=== PATIENT | female | born 1940 | race Caucasian/White ===

== ENCOUNTER 2017-02-14 08:51 | Emergency (ER) | payer OTHER ==
[~2017-02-14] VITALS: Ht 165.1 cm; Wt 69.3 kg
[~2017-02-14 08:51] MED LIST: CALC-51 PO; LEVO75TA PO; MULT-506 PO; OMEGCAP2 PO; vit D PO
[2017-02-14 08:52] VITALS: TEMP 36.7; Ht 165.1 cm; Wt 69.3 kg
[2017-02-14] MEDS ORDERED: MoRPHine SULFATE 4 MG/ML 1 ML CARP\\VIAL IV STA (09:05)
[2017-02-14] MEDS ORDERED: LEVO100T PO (09:36)
[2017-02-14] MEDS ORDERED: MoRPHine SULFATE 4 MG/ML 1 ML CARP\\VIAL IV PRN (10:15)
--- NOTE | 2017-02-14 10:32 | EMERGENCY ROOM VISIT NOTE ---
ED Visit Note First contact with patient: 08:59 Patient was seen by our PA/OPTICAL ADVISOR. I was involved in the patient's care and did evaluate the patient myself. I was involved in the care throughout the ER stay. The patient presents after a fall. She complains of wrist pain. She does have a distal radius and ulna fracture per my review of her films. Orthopedics will be contacted.
--- NOTE | 2017-02-14 10:34 | DIAGNOSTIC IMAGING REPORT ---
LEFT WRIST MIN 3 VIEWS ROUTINE CLINICAL HISTORY: Left wrist pain trauma. Pain. COMPARISON: None. DISCUSSION: Dorsally displaced comminuted fracture distal radius. Fracture extends to the articular services with disruption of that structure. Small avulsion ulnar styloid. No evidence for dislocation. Considerable degenerative change first carpometacarpal joint with all remaining intraosseous services as well. Considerable localized soft tissue edema. IMPRESSION: 1. Comminuted somewhat impacted and dorsally angled fracture distal radius. 2. Minimal avulsion ulnar styloid. 3. Extensive degenerative change. The above report was generated using voice recognition software. It may contain grammatical, syntax or spelling errors. Electronically signed by: Jae Cote M.D. 02/14/2017 10:33 AM Dictated Date/Time: 02/14/2017 10:31 AM
[2017-02-14 11:03] VITALS: BP 148/76; PULSE 66; O2SAT 95
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
== END 2017-02-14 11:42 | disposition home or self-care (01) ==
LOC: C.EDB 08:52
DX: S52.532A Colles' fracture of left radius, initial encounter for closed fracture (principal); S52.615A Nondisplaced fracture of left ulna styloid process, initial encounter for closed fracture; W18.30XA Fall on same level, unspecified, initial encounter; Y92.488 Other paved roadways as the place of occurrence of the external cause; Y93.01 Activity, walking, marching and hiking; E03.9 Hypothyroidism, unspecified

== ENCOUNTER → 2017-04-27 | Outpatient (CLI) | payer OTHER ==
[~2017-04-27] MED LIST changes: +LEVO100T PO; -LEVO75TA PO; -vit D PO
== END | disposition home or self-care (01) ==
LOC: C.LAB 12:06
PROVIDERS: ATTEND Family Medicine
DX: E03.9 Hypothyroidism, unspecified (principal)

== ENCOUNTER → 2017-10-06 | Outpatient (CLI) | payer OTHER ==
[2017-10-06 17:22] LABS: BASO % 0.6 %; BASO ABS # 0.05 K/uL (0-0.2); EOS % 2.7 %; EOS ABS # 0.22 K/uL (0-0.5); HEMATOCRIT 41.2 % (37-47); HEMOGLOBIN 13.9 g/dL (12.0-16.0); IG# 0.01 K/uL (0.00-0.02); MEAN CELL VOLUME 90.9 fL (80-100); MEAN CORPUSCULAR HEMOGLOBIN 30.7 pg (25-34); MEAN CORPUSCULAR HGB CONC 33.7 g/dl (32-36); MEAN PLATELET VOLUME 10.1 fL (7.4-10.4); MONO % 10.3 %; MONO ABS # 0.85 K/uL (0.11-0.59); NEUT % 63.3 %; NEUT ABS # 5.24 K/uL (1.4-6.5); PLATELET COUNT 273 K/uL (130-400); RED CELL DISTRIBUTION WIDTH CV 12.8 % (11.5-14.5); RED CELL DISTRIBUTION WIDTH SD 42.4 fL (36.4-46.3); WHITE BLOOD COUNT 8.27 K/uL (4.8-10.8)
[2017-10-06 18:22] LABS: BLOOD UREA NITROGEN 14 mg/dl (7-18); CALCIUM 9.1 mg/dl (8.5-10.1); CARBON DIOXIDE 30 mmol/L (21-32); CREATININE 0.81 mg/dl (0.60-1.20); GLUCOSE 130 mg/dl (70-99); POTASSIUM 4.1 mmol/L (3.5-5.1); SODIUM 135 mmol/L (136-145)
== END | disposition home or self-care (01) ==
LOC: C.LABPVFM 16:02
PROVIDERS: ATTEND Nurse Practitioner
DX: E03.9 Hypothyroidism, unspecified (principal); R53.83 Other fatigue

== ENCOUNTER 2019-12-15 15:00 | Inpatient (IN) ==
[2019-12-15] MEDS ORDERED: ONDANSETRON INJ 2 MG/ML 2 ML VIAL IV STA (15:19)
[2019-12-15] MEDS ORDERED: HYDROmorphone INJ 0.5 MG/0.5 ML SYR IV PRN (15:19)
[2019-12-15] MEDS ORDERED: SODIUM CHLORIDE 0.9% 500 ML IV SCH (15:30)
[2019-12-15 15:52] LABS: Basophils # (auto) 0.01 K/uL (0-0.2); Basophils % (auto) 0.1 %; Eosinophils # (auto) 0.01 K/uL (0-0.5); Eosinophils % (auto) 0.1 %; Hematocrit (blood only) 44.2 % (37-47); Hemoglobin 15.1 g/dL (12.0-16.0); Immature Granulocytes # (auto) 0.04 K/uL (0.00-0.02); Immature Granulocytes % (auto) 0.3 %; Lymphocytes # (auto) 0.48 K/uL (1.2-3.4); Lymphocytes % (auto) 3.6 %; Mean Corpuscular Hemoglobin 30.6 pg (25-34); Mean Corpuscular Hgb Conc 34.2 g/dL (32-36); Mean Corpuscular Volume 89.5 fL (80-100); Mean Platelet Volume 10.2 fL (7.4-10.4); Monocytes # (auto) 0.83 K/uL (0.11-0.59); Monocytes % (auto) 6.1 %; Neutrophils # (auto) 12.13 K/uL (1.4-6.5); Neutrophils % (auto) 89.8 %; Platelet Count 195 K/uL (130-400); RDW Coefficient of Variation 12.6 % (11.5-14.5); RDW Standard Deviation 40.8 fL (36.4-46.3); Red Blood Count 4.94 M/uL (4.2-5.4)
[2019-12-15] MEDS ORDERED: ACETAMINOPHEN 1,000 MG/100 ML VIAL IV STA (15:52)
[2019-12-15 16:11] LABS: Albumin Level 3.5 gm/dl (3.4-5.0); BUN Creatinine Ratio 11.2 (10-20); Calcium 9.2 mg/dl (8.5-10.1); Creatinine Clr Calc Pharmacy 52.5 ml/min; Est GFR (African American) 74.5; Est GFR (Non-African American) 64.3; Potassium 4.1 mmol/L (3.5-5.1)
[2019-12-15 16:13] LABS: Albumin Globulin Ratio 0.8 (0.9-2); Bilirubin,Total 4.1 mg/dl (0.2-1); Globulin 4.5 gm/dl (2.5-4.0)
[2019-12-15] MEDS ORDERED: PIPERACILLIN/TAZOBACTAM 4.5 GM/120 ML BAG IV ONE (16:44)
[2019-12-15] MEDS ORDERED: PIPERACILL/TAZOBAC CONSULT ACTIVE PRN ×2 (16:44→19:07)
[2019-12-15] MEDS ORDERED: IOVERSOL 100ml IV PRN (17:36)
--- NOTE | 2019-12-15 17:45 | CT Scan Report ---
CT OF THE HEAD WITHOUT CONTRAST CLINICAL HISTORY: Syncope. Fever. COMPARISON STUDY: Head CT August 09, 2013. TECHNIQUE: Helical axial images of the head were obtained without IV contrast. Automated exposure con trol was utilized for the study. A dose lowering technique was utilized adhering to the principles o f ALARA. FINDINGS: No acute intracranial hemorrhage, midline shift or mass effect is present. The ventricular system is stable. Mild white matter hypodensity suggests small vessel disease. The basilar cisterns a re patent. No extra-axial collections are present. There are no findings to suggest acute dural sinus thrombosis or acute territorial infarct. No significant calvarial abnormalities are present. Visuali zed portions of the sinuses and mastoid air cells are clear. Incidental note is made of ossification along the anterior falx. There is minimal bilateral basal ganglia calcification. IMPRESSION: No acute intracranial findings. ACT 112: Negative or not required by law. Electronically signed by: Bishnu Cortez M.D. 12/15/2019 5:44 PM
--- NOTE | 2019-12-15 17:59 | CT Scan Report ---
CT OF THE ABDOMEN AND PELVIS WITH CONTRAST CLINICAL HISTORY: Right upper quadrant abdominal pain. Fever. COMPARISON STUDY: None. TECHNIQUE: Following IV administration of 92 mL of Optiray-320, axial images of the abdomen and pelvi s were obtained from the lung bases to the proximal femurs. Images were reviewed in the axial, sagitt al, and coronal planes. IV contrast was administered without complication. Automated exposure contro l was utilized for the study. A dose lowering technique was utilized adhering to the principles of A NATI. CT DOSE: 1101.69 mGy.cm FINDINGS: Lung bases are unremarkable. No pneumatosis, free air or portal venous gas is present. Ther e is moderate to marked intra and extrahepatic biliary ductal dilatation. The common bile duct measur es 1.6 cm in caliber. There is mild wall thickening of the biliary tree. Extensive intraluminal mater ial is noted within the intra and extrahepatic bile ducts. These suggest extensive calculi. There is minimal adjacent infiltration. The gallbladder is moderately distended. There is probable fatty infil tration of the liver. Major hepatic vessels are patent. There are no hepatic lesions. Pancreatic glan dular atrophy is noted without pancreatic ductal dilatation. There is no peripancreatic infiltration. A cyst within lower pole the right kidney contains a thin septation. Multiple subcentimeter bilatera l renal lesions are too small to characterize. The spleen and adrenal glands are normal. There is no evidence for a bowel obstruction. Colonic diverticulosis is noted without evidence for acute divertic ulitis. The appendix is normal. There are no suspicious osseous lesions. There is no ascites. IMPRESSION: 1. Moderate to marked intra and extrahepatic biliary ductal dilatation. Extensive intraluminal conten ts within the biliary tree suggest extensive calculi. Given the clinical history, the findings sugges t cholangitis and could reflect recurrent pyogenic cholangitis. GI consultation is recommended. 2. Moderate gallbladder distention. Superimposed acute cholecystitis cannot be excluded. ACT 112: Negative or not required by law. Electronically signed by: Bishnu Cortez M.D. 12/15/2019 5:58 PM
[2019-12-15] MEDS ORDERED: LACTATED RINGER'S 1,000 ML IV SCH ×4 (18:00→22:00)
--- NOTE | 2019-12-15 18:14 | Emergency Department Note ---
Impression & Plan Acute cholecystitis, Ascending cholangitis, Cholelithiasis, Elevated LFTs, Acute pancreatitis, Syncope, Nausea & vomiting, Leukocytosis ED Provider Note INFORMANT: [Patient] ED PROVIDER(S): Zachary Moody MD CHIEF COMPLAINT: Illness PLAN: Disposition: Admitted Condition: Guarded MEDICAL DECISION MAKING: Patient presented with feeling generally ill and having a syncopal episode. On physical examination she had right upper quadrant tenderness. A limited bedside ultrasound was performed by me and was concerning for significant cholelithiasis. The patient had blood work obtained. She was given Dilaudid, Zofran, and normal saline. She then had fever and was given IV Tylenol. The patient had a leukocytosis on CBC. LFTs and lipase were elevated concerning for an obstructive process. In light of the gallstones this was concerning and the patient underwent CT imaging. CT imaging was concerning for acute cholecystitis and ascending cholangitis. Consultation was made with gastroenterology, Dr. Reynaga. He is coming urgently to see the patient. Consultation was also placed with the [facility] hospitalist service. The case was discussed with Susy Kaufman PA-C. The patient will be admitted by the team for further management. Triage Nursing notes reviewed and agree them. Vital Signs: reviewed and remarkable for [no significant abnormalities] Differential diagnosis: Appendicitis, infections, diverticulitis, UTI, obstruction, mesenteric isch emia, aortic pathology, inflammatory bowel disease, renal colic, PUD, pancreatitis, biliary pathology, hernia, volvulus, constipation, as well as other pathologies. Diagnostics interpreted by me: ECG: Twelve-lead ECG reveals normal sinus rhythm at 76 bpm. There is left axis deviation and LVH present. No ST elevation or depression. No PACs or PVCs. Normal QRS. Cardiac Monitoring: Cardiac monitoring ordered by me: The patient was placed on continuous cardiac monitoring and observed. It revealed a normal sinus rhythm at 82 beats per minute without ectopy or evidence of dysrhythmia. Imaging studies: Head CT: A noncontrast CT scan of the head was performed and was negative for tumor, fracture, intracranial hemorrhage, or other acute pathology. CT scan of the abdomen pelvis is concerning for cholecystitis as well as cholangitis. Consultation(s): [facility] internal medicine hospitalist service HPI: The patient is a 79 year old female who presents to the Emergency Room with complaints of illness. This started yesterday with fatigue and then upper abdominal pain today. The patient felt nauseated. She vomited. She had a syncopal episode. She denies any injury from this. EMS was summoned and brought her to the hospital. The patient has found no relieving factors. Current pain is rated as 7/10. Pt denies headache, fevers, chills, diaphoresis, visual changes, neck pain, chest pain, breathing difficulties, back pain, melena, hematochezia, urinary symptoms, numbness, weakness, lymphadenopathy, rash, or other complaints. ROS: See above HPI for pertinent positives & negatives. A total of [10] systems reviewed and were otherwise negative. PAST MEDICAL HISTORY:[See Below] hypertension PAST SURGICAL HISTORY:[See Below] FAMILY HISTORY:[See Below] SOCIAL HISTORY:[See Below] no alcohol HOME MEDICATIONS:[See Below] ALLERGIES:[See Below] VITALS:[See Below] PHYSICAL EXAMINATION: GENERAL: Awake, alert, uncomfortable-appearing, in no distress HENT: Normocephalic, atraumatic. Oropharynx unremarkable. EYES: Normal conjunctiva. Sclera non-icteric. NECK: Inspection normal. Non-tender. Supple. No nuchal rigidity. FROM. No masses. RESPIRATORY: Clear to auscultation. No wheezes. No rales. Normal respiratory effort. CARDIAC: Normal rate. Normal rhythm. No murmurs. No rubs. Extremities warm and well perfused. Pulses equal. No JVD. GI: Soft, non-distended. Significant right upper quadrant tenderness to palpation. No rebound or guarding. No masses. RECTAL: Deferred. MUSCULOSKELETAL: Atraumatic. Chest examination reveals no tenderness. The back is symmetrical on inspection without obvious abnormality. There is no CVA tenderness to palpation. No joint edema. LOWER EXTREMITIES: Calves are equal size bilaterally and non-tender. No edema. No discoloration. NEURO: Normal sensorium. No sensory or motor deficits noted. SKIN: No rash or jaundice noted. ED COURSE: Limited Point of Care Abdominal Ultrasound performed by me: Indication: Right upper quadrant pain Findings: Limited abdominal ultrasonography of the RUQ revealed no fluid within Morrisons pouch. No hydronephrosis of the right kidney. Gallbladder imaging revealed significant cholelithiasis. Mild gallbladder distention.. Positive sonographic Falk sign. Impression: Cholelithiasis with concerns for acute cholecystitis. [Critical Care:] [None] Zachary Moody MD Past Med/Surg History Medical History (Updated 12/15/19 @ 18:08 by Zachary Moody MD) Acute coronary syndrome (Inactive) H/O therapeutic radiation Hypothyroidism (Chronic) Peripheral neuropathy (Chronic) Seasonal allergies (Acute) Surgical History (Updated 09/24/19 @ 11:36 by Kayla Cheney MD) H/O breast surgery Family History (Updated 09/24/19 @ 11:36 by Kayla Cheney MD) Other No pertinent family history Social History Feels Safe at Home: Yes Smoking Status: Never smoker Allergies Allergies Allergy/AdvReac Type Severity Reaction Status Date / Time No Known Allergies Allergy Unverified 12/15/19 16:24 Home Meds Previous Rx's Medication Instructions Recorded duloxetine 30 mg capsule,delayed 30 mg PO DAILY #30 cap 09/24/19 release levothyroxine 100 mcg tablet 100 mcg PO DAILY #90 tab 11/14/19 Results & Data (ED) Vital Signs Vital Signs - 24 hr 12/15/19 15:09 12/15/19 15:11 12/15/19 15:16 Temperature 37.3 C Temperature Source Oral Pulse Rate 80 77 82 Pulse Rate from SpO2 Sensor 81 78 Respiratory Rate 20 20 20 Respiratory Effort / Characteristics Non-Labored Spontaneous Respiratory Depth Normal Respiratory Pattern Regular Blood Pressure 190/91 H Blood Pressure Mean 130 Pulse Oximetry 94 94 95 Oxygen Delivery Method Room Air Sepsis Recent Fever Within 48 Hours No Sepsis New/Unexplained Change in Mental Status No Sepsis Action Taken by Nursing No Action Required 12/15/19 15:30 12/15/19 15:33 12/15/19 16:00 Temperature Temperature Source Pulse Rate 76 80 Pulse Rate from SpO2 Sensor 77 Respiratory Rate Respiratory Effort / Characteristics Respiratory Depth Respiratory Pattern Blood Pressure 167/80 H 165/77 H Blood Pressure Mean 105 100 Pulse Oximetry 92 Oxygen Delivery Method Sepsis Recent Fever Within 48 Hours Sepsis New/Unexplained Change in Mental Status Sepsis Action Taken by Nursing 12/15/19 16:01 12/15/19 16:04 12/15/19 16:30 Temperature Temperature Source Pulse Rate 83 87 Pulse Rate from SpO2 Sensor 79 87 Respiratory Rate 18 20 Respiratory Effort / Characteristics Respiratory Depth Respiratory Pattern Blood Pressure 154/75 H Blood Pressure Mean 103 Pulse Oximetry 92 94 96 Oxygen Delivery Method Room Air Sepsis Recent Fever Within 48 Hours Sepsis New/Unexplained Change in Mental Status Sepsis Action Taken by Nursing 12/15/19 16:31 12/15/19 16:40 12/15/19 17:01 Temperature 38.0 C H Temperature Source Oral Pulse Rate 86 110 H Pulse Rate from SpO2 Sensor 86 109 H Respiratory Rate Respiratory Effort / Characteristics Respiratory Depth Respiratory Pattern Blood Pressure 153/83 H Blood Pressure Mean 111 Pulse Oximetry 96 96 Oxygen Delivery Method Sepsis Recent Fever Within 48 Hours Sepsis New/Unexplained Change in Mental Status Sepsis Action Taken by Nursing 12/15/19 17:02 12/15/19 17:57 12/15/19 18:00 Temperature Temperature Source Pulse Rate 96 H 83 82 Pulse Rate from SpO2 Sensor 96 H 85 83 Respiratory Rate Respiratory Effort / Characteristics Respiratory Depth Respiratory Pattern Blood Pressure 139/75 138/71 Blood Pressure Mean 87 89 Pulse Oximetry 97 100 100 Oxygen Delivery Method Sepsis Recent Fever Within 48 Hours Sepsis New/Unexplained Change in Mental Status Sepsis Action Taken by Nursing 12/15/19 18:01 Temperature Temperature Source Pulse Rate 81 Pulse Rate from SpO2 Sensor 81 Respiratory Rate Respiratory Effort / Characteristics Respiratory Depth Respiratory Pattern Blood Pressure Blood Pressure Mean Pulse Oximetry 100 Oxygen Delivery Method Sepsis Recent Fever Within 48 Hours Sepsis New/Unexplained Change in Mental Status Sepsis Action Taken by Nursing Laboratory Data Result diagrams: 12/15/19 15:46 12/15/19 15:46 Lab Results 12/15/19 12/15/19 Range/Units 15:46 15:46 WBC 13.50 H (4.8-10.8) K/uL RBC 4.94 (4.2-5.4) M/uL Hgb 15.1 (12.0-16.0) g/dL Hct 44.2 (37-47) % MCV 89.5 (80-100) fL MCH 30.6 (25-34) pg MCHC 34.2 (32-36) g/dL RDW Std Deviation 40.8 (36.4-46.3) fL RDW Coeff of Leeanne 12.6 (11.5-14.5) % Plt Count 195 (130-400) K/uL MPV 10.2 (7.4-10.4) fL Immature Gran % (Auto) 0.3 % Neut % (Auto) 89.8 % Lymph % (Auto) 3.6 % [place] % (Auto) 6.1 % Eos % (Auto) 0.1 % Baso % (Auto) 0.1 % Neut # (Auto) 12.13 H (1.4-6.5) K/uL Lymph # (Auto) 0.48 L (1.2-3.4) K/uL [place] # (Auto) 0.83 H (0.11-0.59) K/uL Eos # (Auto) 0.01 (0-0.5) K/uL Baso # (Auto) 0.01 (0-0.2) K/uL Immature Gran # (Auto) 0.04 H (0.00-0.02) K/uL Sodium 132 L (136-145) mmol/L Potassium 4.1 (3.5-5.1) mmol/L Chloride 99 (98-107) mmol/L Carbon Dioxide 28 (21-32) mmol/L Anion Gap 6.0 (3-11) BUN 10 (7-18) mg/dl Creatinine 0.85 (0.6-1.2) mg/dl Est Cr Clr Drug Dosing 52.5 ml/min Est GFR ( Amer) 74.5 Est GFR (Non-Af Amer) 64.3 BUN/Creatinine Ratio 11.2 (10-20) Glucose 170 H (70-99) mg/dl Calcium 9.2 (8.5-10.1) mg/dl Total Bilirubin 4.1 H (0.2-1) mg/dl AST 512 H (15-37) U/L ALT 440 H (12-78) U/L Alkaline Phosphatase 188 H (45-117) U/L Total Protein 8.0 (6.4-8.2) gm/dl Albumin 3.5 (3.4-5.0) gm/dl Globulin 4.5 H (2.5-4.0) gm/dl Albumin/Globulin Ratio 0.8 L (0.9-2) Lipase 466 H (73-393) U/L Administered Medications Hydromorphone HCl (Dilaudid) 0.5 mg IV Q15M PRN PRN Reason: Pain Stop: 12/29/19 15:18 Last Admin: 12/15/19 16:03 Dose: 0.5 mg Documented by: [id number] Ioversol (Optiray 320 100ml) 92 ml IV ONCE PRN PRN Reason: Interaction Checking Stop: 12/19/19 17:35 Last Admin: 12/15/19 17:36 Dose: 92 ml Documented by: [id number] Discontinued Medications Sodium Chloride (Nss) 500 mls @ 999 mls/hr IV .Q31M JOSE ELIAS Stop: 12/15/19 16:00 Last Infusion: 12/15/19 16:37 Dose: 0 mls/hr Documented by: [id number] Admin: 12/15/19 16:01 Dose: 999 mls/hr Documented by: [id number] Acetaminophen (Ofirmev) 1,000 mg in 100 mls @ 400 mls/hr IV NOW STA Stop: 12/15/19 16:06 Last Infusion: 12/15/19 16:37 Dose: 0 mls/hr Documented by: [id number] Admin: 12/15/19 16:03 Dose: 400 mls/hr Documented by: [id number] Piperacillin Sod/Tazobactam Sod (Zosyn) 4.5 gm in 120 mls @ 240 mls/hr IV NOW ONE Stop: 12/15/19 17:13 Last Infusion: 12/15/19 17:40 Dose: 0 mls/hr Documented by: [id number] Admin: 12/15/19 17:06 Dose: 240 mls/hr Documented by: [id number] Ondansetron HCl (Zofran) 4 mg IV NOW STA Stop: 12/15/19 15:20 Last Admin: 12/15/19 16:01 Dose: 4 mg Documented by: [id number] Discharge Plan Visit Data Chief Complaint: Illness ED Provider: Zachary Moody Discharge Problem: Acute cholecystitis, Ascending cholangitis, Cholelithiasis, Elevated LFTs, Acute pancreatitis, Syncope, Nausea & vomiting, Leukocytosis Forms Stand Alone Forms: [employer] Prescriptions Prescriptions: No Action duloxetine 30 mg capsule,delayed release(DR/EC) 30 mg PO DAILY Qty: 30 RF: 1 levothyroxine [Synthroid] 100 mcg tablet 100 mcg PO DAILY Qty: 90 RF: 1
--- NOTE | 2019-12-15 18:14 | History & Physical Report ---
Date of Service December 15, 2019 Assessment & Plan (1) Acute cholecystitis: (2) Ascending cholangitis: - Admit to med surg with tele - Follow BCx x 2, was started on IV zosyn before obtaining cultures - CT of the abd reviewed as above - Keep NPO ok with meds, sips/chips - Cont LR at 250 ml/hr to aggressively hydrate - Consult GI, Dr. Reynaga, for ERCP - plan for tomorrow morning - Consult general surgery, Dr. Machuca - WBC elevated at 13.5, LFTs elevated, lipase elevated 466 possibly gallstone pancreatitis - Tmax =38 in the ER, continue tylenol - Analgesia with MS IV, tylenol - Glucose noted to be 170 on admission, nothing to eat since breakfast, will check am A1C, trend with am cmp. (3) Hypothyroidism: - Cont levothyroxine (4) DVT prophylaxis: - teds CODE: DNR Dispo: From home, likely to remain in the hospital for 2 days. History of Present Illness Primary Care Provider: Kayla Cheney MD This is a 79 yo F with PMhx of hypothyroidism and depression, who was in her normal state of health yesterday. Last night she went to bed early due to not feeling well. This morning she went out to her kitchen to try to fix breakfast for herself and states that she passed out due to pain, she was able to call EMS herself once coming to, initially she was unable to pinpoint where exactly her pain was but currently states pain is localized to the RUQ. She admits to nausea, but no vomiting, and then subsequently developed a fever later today. She reports her pain is very mild at this point as she has been given pain medication in the ER. She thought that it was Tuesday morning whenever I was in to see her, and seems to be unable to grasp that the whole day has passed. She is otherwise alert and oriented and participates in Q&A appropriately. Here in the ER the pt is found to have significant findings on CT scan for moderate to marked intra and extrahepatic biliary ductal dilatation. Extensive intraluminal contents within the biliary tree suggest extensive calculi. Given the clinical history, the findings suggest cholangitis and could reflect recurrent pyogenic cholangitis. Moderate gallbladder distention, concerning for acute cholecystitis. Pt has been started on IV zosyn. GI has been consulted for ERCP. Allergies Allergy/AdvReac Type Severity Reaction Status Date / Time No Known Allergies Allergy Unverified 12/15/19 16:24 Home Medications Home Medications Medication Instructions Recorded Confirmed Type duloxetine 30 mg capsule,delayed 30 mg PO DAILY #30 cap 09/24/19 12/15/19 Rx release levothyroxine 100 mcg tablet 100 mcg PO DAILY #90 tab 11/14/19 12/15/19 Rx Past Med/Surg History Medical History Acute coronary syndrome (Inactive) H/O therapeutic radiation Hypothyroidism (Chronic) Peripheral neuropathy (Chronic) Seasonal allergies (Acute) Surgical History H/O breast surgery Family History Other No pertinent family history Social History Preferred Language: Italian Communication Ability: Effective 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 Current Living Situation: Alone Other Information That Helps Us Care for You: No Feels Safe at Home: Yes Safety Concerns: Feels Safe At This Time Smoking Status: Never smoker Hx Alcohol Use: No Hx Substance Use: No Review of Systems Review of Systems: Constitutional: + Fever, no sweats or chills Eyes: No diplopia, no worsening or blurred vision ENT: normal hearing, no trouble swallowing Respiratory: No cough, sputum, dyspnea at rest or on exertion Cardiovascular: No chest pain, tightness or palpitations Abdomen: See HPI, + pain, + nausea, no vomiting, diarrhea or constipation Musculoskeletal: No joint pain, calf pain, swelling Neurologic: No weakness, numbness/tingling, or balance problems Psychiatric: No anxiety or depression Skin: No rash or itch Physical Exam Physical Exam: General: awake, alert, no apparent distress, + appears younger than stated age Head: Normocephalic, atraumatic ENT: PERRL, EOMI, no pharyngeal exudate, mucous membranes moist Chest: Clear to auscultation, on room air, no adventitious breath sounds Cardiac: Regular rate and rhythm, no murmur, no JVD, normal peripheral pulses, good capillary refill Abdominal: NABS x 4 quadrants, soft, + tenderness in RUQ with deep palpation, otherwise nontender to palpation, no rebound, guarding, negative Falk sign with pain medication Extremities: Normal inspection, no peripheral edema or erythema, calfs nontender to palpation Psych: Normal mood and affect Neuro: AAO x 3, strength intact bilaterally and rated 5/5, no motor deficits, speech is clear, no peripheral sensory deficits Skin: no rash or erythema Results & Data Results & [facility] ([facility] Vital Signs (Past 12 Hours) Vital Signs Temp Pulse Resp BP Pulse Ox 12/15/19 18:01 81 100 12/15/19 18:00 82 138/71 100 12/15/19 17:57 83 139/75 100 12/15/19 17:02 96 H 97 12/15/19 17:01 110 H 153/83 H 96 12/15/19 16:40 38.0 C H 12/15/19 16:31 86 96 12/15/19 16:30 87 154/75 H 96 12/15/19 16:04 83 20 94 12/15/19 16:01 18 92 12/15/19 16:00 80 165/77 H 92 12/15/19 15:33 76 12/15/19 15:30 167/80 H 12/15/19 15:16 37.3 C 82 20 95 12/15/19 15:11 77 20 94 12/15/19 15:09 80 20 190/[address] OF THE HEAD WITHOUT CONTRAST CLINICAL HISTORY: Syncope. Fever. COMPARISON STUDY: Head CT August 09, 2013. TECHNIQUE: Helical axial images of the head were obtained without IV contrast. Automated exposure control was utilized for the study. A dose lowering technique was utilized adhering to the principles of ALARA. FINDINGS: No acute intracranial hemorrhage, midline shift or mass effect is present. The ventricular system is stable. Mild white matter hypodensity suggests small vessel disease. The basilar cisterns are patent. No extra-axial collections are present. There are no findings to suggest acute dural sinus thrombosis or acute territorial infarct. No significant calvarial abnormalities are present. Visualized portions of the sinuses and mastoid air cells are clear. Incidental note is made of ossification along the anterior falx. There is minimal bilateral basal ganglia calcification. IMPRESSION: No acute intracranial findings. CT OF THE ABDOMEN AND PELVIS WITH CONTRAST CLINICAL HISTORY: Right upper quadrant abdominal pain. Fever. COMPARISON STUDY: None. TECHNIQUE: Following IV administration of 92 mL of Optiray-320, axial images of the abdomen and pelvis were obtained from the lung bases to the proximal femurs. Images were reviewed in the axial, sagittal, and coronal planes. IV contrast was administered without complication. Automated exposure control was utilized for the study. A dose lowering technique was utilized adhering to the principles of ALARA. CT DOSE: 1101.69 mGy.cm FINDINGS: Lung bases are unremarkable. No pneumatosis, free air or portal venous gas is present. There is moderate to marked intra and extrahepatic biliary ductal dilatation. The common bile duct measures 1.6 cm in caliber. There is mild wall thickening of the biliary tree. Extensive intraluminal material is noted within the intra and extrahepatic bile ducts. These suggest extensive calculi. There is minimal adjacent infiltration. The gallbladder is moderately distended. There is probable fatty infiltration of the liver. Major hepatic vessels are patent. There are no hepatic lesions. Pancreatic glandular atrophy is noted without pancreatic ductal dilatation. There is no peripancreatic infiltration. A cyst within lower pole the right kidney contains a thin septation. Multiple subcentimeter bilateral renal lesions are too small to characterize. The spleen and adrenal glands are normal. There is no evidence for a bowel obstruction. Colonic diverticulosis is noted without evidence for acute diverticulitis. The appendix is normal. There are no suspicious osseous lesions. There is no ascites. IMPRESSION: 1. Moderate to marked intra and extrahepatic biliary ductal dilatation. Extensive intraluminal contents within the biliary tree suggest extensive calculi. Given the clinical history, the findings suggest cholangitis and could reflect recurrent pyogenic cholangitis. GI consultation is recommended. 2. Moderate gallbladder distention. Superimposed acute cholecystitis cannot be excluded. Code Status & VTE Plan Code Status DNR-discussed with the patient at bedside Supervising Physician Co-Signing Physician Notes I supervised Susy Kaufman PA-C on this admission. I interviewed and examined the patient independently of her. The plan is as written in the note except for any following changes/exceptions: None Plan for ERCP tomorrow with Dr. Reynaga. Presently not in significant pain. Surgery will be consulted for consideration of an inpatient lap alexander as well. PG Care Time/CCT Total # of Minutes Spent Total Time Spent with Patient: Total time spent is greater than 50% in coordination of care (as documented) at patient's floor/unit and/or counseling patient: Coding Level of Care Code 40536 Initial Inpt Care Lvl 3 Diagnoses Acute cholecystitis K81.0 Ascending cholangitis K83.09 Hypothyroidism E03.9 DVT prophylaxis Z29.9
--- NOTE | 2019-12-15 18:31 | Gastrointestinal Consultation ---
Date of Consultation December 15, 2019 Assessment & Plan (1) Ascending cholangitis: appears to have gallstone pancreatitis with cholangitis, epigastric tenderness on exam. she is very high probability per ASGE criteria for having choledocholithiasis, and thus requires an ERCP. Recs: 1. NPO 2. IV abx zosyn 3. obtain blood cultures 4. ERCP tomorrow morning 5.aggressive IV hydration with LR 250 cc/hr over the first 24 hours 6.surgery consult for [facility] this admission Thank you for allowing me to participate in the care of this patient (2) Cholelithiasis: (3) Elevated LFTs: (4) Acute pancreatitis: History of Present Illness History of Present Illness 79 yo female here with abdominal pain. GI consulted for possible cholangitis. She has been having epigastric intense abdominal pains 10/10 since yesterday evening. vitals show she is febrile to 38.0, labs show tbili 4.1 and elevated lipase, with imaging showing several gallstones and dilated bile ducts. Denies n/v, urinary sx's, change in bowel habits. labs reviewed. Allergies Allergy/AdvReac Type Severity Reaction Status Date / Time No Known Allergies Allergy Unverified 12/15/19 16:24 Home Medications Home Medications Medication Instructions Recorded Confirmed Type duloxetine 30 mg capsule,delayed 30 mg PO DAILY #30 cap 09/24/19 12/15/19 Rx release levothyroxine 100 mcg tablet 100 mcg PO DAILY #90 tab 11/14/19 12/15/19 Rx Patient History Medical History Acute coronary syndrome (Inactive) H/O therapeutic radiation Hypothyroidism (Chronic) Peripheral neuropathy (Chronic) Seasonal allergies (Acute) Surgical History H/O breast surgery Family History Other No pertinent family history Social History Feels Safe at Home: Yes Smoking Status: Never smoker Review of Systems Constitutional: no fever, no chills and no weight loss Eyes: as per Subjective / HPI Ear, Nose, Mouth, Throat: as per Subjective / HPI Respiratory: no dyspnea and no dyspnea on exertion Cardiovascular: no chest pain and no palpitations Gastrointestinal: as per Subjective / HPI Musculoskeletal: no joint pain and no swelling Integumentary: no rash and no lesions Neurologic: no numbness and no paresthesia Psychiatric: no depression and no anxiety Endocrine: no fatigue Hematologic / Lymphatic: no easy bleeding and no easy bruising Physical Exam Constitutional: WD/WN, vitals as above Eyes: EOM intact bilaterally Neck: normal visual inspection Respiratory: normal respiratory effort, lungs clear to auscultation Cardiovascular: RRR, no murmur, no edema Gastrointestinal (Abdomen): Inspection/Auscultation: abdomen normal to inspection; abdomen not distended Percussion/Palpation: + abdomen tender (moderate epigastric) and abdomen soft; no hepatosplenomegaly Musculoskeletal: Extremities: no cyanosis Gait: normal gait Skin: no rashes, warm and dry Neurologic: moves all extremities Psychiatric: A+Ox3, euthymic affect Results & Data ([facility]) Vital Signs (Past 12 Hours) Vital Signs Temp Pulse Resp BP Pulse Ox 12/15/19 18:01 81 100 12/15/19 18:00 82 138/71 100 12/15/19 17:57 83 139/75 100 12/15/19 17:02 96 H 97 12/15/19 17:01 110 H 153/83 H 96 12/15/19 16:40 38.0 C H 12/15/19 16:31 86 96 12/15/19 16:30 87 154/75 H 96 12/15/19 16:04 83 20 94 12/15/19 16:01 18 92 12/15/19 16:00 80 165/77 H 92 12/15/19 15:33 76 12/15/19 15:30 167/80 H 12/15/19 15:16 37.3 C 82 20 95 12/15/19 15:11 77 20 94 12/15/19 15:09 80 20 190/91 H 94 PG Care Time/CCT Total # of Minutes Spent Total Time Spent with Patient: Total time spent is greater than 50% in coordination of care (as documented) at patient's floor/unit and/or counseling patient: Coding Level of Care Code 74665 Initial Inpt Care Lvl 3 Diagnoses Ascending cholangitis K83.09 Cholelithiasis K80.20 Elevated LFTs R79.89 Acute pancreatitis K85.90
[2019-12-15] MEDS ORDERED: ONDANSETRON INJ 2 MG/ML 2 ML VIAL IV PRN (19:07)
[2019-12-15] MEDS ORDERED: MoRPHine SULFATE 2 MG/ML CARP IV PRN (19:07)
[2019-12-15] MEDS ORDERED: MoRPHine SULFATE 4 MG/ML 1 ML CARP\\VIAL IV PRN (19:07)
[2019-12-15] MEDS: PIPERACILLIN/TAZOBACTAM 3.375 GM in DEXTROSE 5% 100 ML IV SCH (21:05)
[2019-12-15] MEDS: ACETAMINOPHEN 325 MG TAB PO PRN (21:08)
[2019-12-15] MEDS: LACTATED RINGER'S 1,000 ML IV SCH (22:53)
[2019-12-16] MEDS: LACTATED RINGER'S 1,000 ML IV SCH ×5 (03:07→19:07)
[2019-12-16 03:21] LABS: Appearance Urine Clear (Clear); Bacteria Urine Automated Negative (Negative); Bilirubin Urine Negative (Negative); Blood Urine Trace (Negative); Cast Urine Automated 0 /lpf (0-5); Color Urine Dark Yellow; Glucose Urine UA Negative (Negative); Ketones Urine Negative (Negative); Leukocyte Esterase Urine Negative (Negative); Nitrite Urine Negative (Negative); Protein Urine Negative (Negative); RBC Urine Automated 0-4 /hpf (0-4); Specific Gravity Urine 1.023 (1.000-1.030); Urobilinogen Urine Negative (Negative); WBC Urine Automated 0 /hpf (0-5)
[2019-12-16] MEDS: PIPERACILLIN/TAZOBACTAM 3.375 GM in DEXTROSE 5% 100 ML IV SCH ×3 (04:27→20:29)
--- NOTE | 2019-12-16 06:23 | Anesthesiology Consultation ---
Date of Service December 16, 2019 Assessment & Plan (1) Encounter for pre-operative examination: ASA ASA3 Proposed Anesthesia Anesthesia Type: General History Surgery Operation Date: 12/16/19 07:30 Proposed Procedures p Endoscopic Retrograde Cholangiopancreato - Mae Thakur MD Height/Weight Height: 5 ft 6 in Weight: 70.8 kg Allergies Allergy/AdvReac Type Severity Reaction Status Date / Time No Known Allergies Allergy Unverified 12/15/19 16:24 Medications Home Medications Medication Instructions Recorded Confirmed Last Taken duloxetine 30 mg capsule,delayed 30 mg PO DAILY #30 cap 09/24/19 12/15/19 Unknown release levothyroxine 100 mcg tablet 100 mcg PO DAILY #90 tab 11/14/19 12/15/19 Unknown Active Medications Generic Name Dose Route Start Last Admin Trade Name Freq PRN Reason Stop Dose Admin Acetaminophen 650 mg 12/15/19 19:07 12/15/19 21:08 Tylenol PO 01/14/20 19:06 650 mg Q4H PRN Administration Moderate Pain Piperacillin Sod/Tazobactam 115 mls @ 28.75 mls/hr 12/15/19 21:00 12/16/19 04:27 Sod 3.375 gm/ Dextrose IV 12/25/19 20:59 28.8 mls/hr Q8H JOSE ELIAS Administration Protocol Lactated Ringer's 1,000 mls @ 250 mls/hr 12/15/19 23:30 12/16/19 03:07 Lr IV 01/14/20 23:29 250 mls/hr .Q4H JOSE ELIAS Administration Levothyroxine Sodium 100 mcg 12/16/19 06:30 12/16/19 06:26 Synthroid PO 01/15/20 06:29 100 mcg DAILYBB JOSE ELIAS Administration Past Medical History Medical History Acute coronary syndrome (Inactive) H/O therapeutic radiation Hypothyroidism (Chronic) Peripheral neuropathy (Chronic) Seasonal allergies (Acute) Past Family History Family History Other No pertinent family history Past Surgical History Surgical History H/O breast surgery Social History Smoking Status: Never smoker Hx Alcohol Use: No Hx Substance Use: No Physical Exam Vital Signs Last Vital Signs Temp 36.8 C 12/16/19 04:34 Pulse 72 12/16/19 04:34 Resp 20 12/16/19 04:34 BP 154/81 H 12/16/19 04:34 Pulse Ox 95 12/16/19 04:34 Testing Laboratory Results 12/15/19 15:46 12/15/19 15:46 Urine Color Dark Yellow 12/16/19 02:30 Urine Appearance Clear (Clear) 12/16/19 02:30 Urine pH 7.0 (4.5-7.5) 12/16/19 02:30 Ur Specific [place] 1.023 (1.000-1.030) 12/16/19 02:30 Urine Protein Negative (Negative) 12/16/19 02:30 Urine Glucose (UA) Negative (Negative) 12/16/19 02:30 Urine Ketones Negative (Negative) 12/16/19 02:30 Urine Nitrite Negative (Negative) 12/16/19 02:30 Ur Leukocyte Esterase Negative (Negative) 12/16/19 02:30 Urine WBC (Auto) 0 /hpf (0-5) 12/16/19 02:30 Urine RBC (Auto) 0-4 /hpf (0-4) 12/16/19 02:30 U Hyaline Cast (Auto) 0 /lpf (0-5) 12/16/19 02:30 U Epithel Cells (Auto) 5-10 /lpf (0-5) H 12/16/19 02:30 Urine Bacteria (Auto) Negative (Negative) 12/16/19 02:30 Electrocardiogram Date: 12/15/19 Findings: + NSR @
[2019-12-16] MEDS: LEVOTHYROXINE SODIUM 100 MCG TABLET PO SCH (06:26)
[2019-12-16] MEDS ORDERED: PROPOFOL IV EMULSION 10 MG/ML 20 ML VIAL IV ONE (06:51)
[2019-12-16] MEDS ORDERED: SUCCINYLCHOLINE 100MG/5ML SYR IV ONE (06:51)
[2019-12-16] MEDS ORDERED: LIDOCAINE HCL 2% 2 ML VIAL/AMP(20MG/ML) INFIL ONE (06:51)
[2019-12-16] MEDS ORDERED: fentaNYL citrate 100 MCG/2 ML VIAL ONE ×2 (06:51→08:41)
[2019-12-16] MEDS ORDERED: ONDANSETRON INJ 2 MG/ML 2 ML VIAL ONE (06:54)
[2019-12-16] MEDS ORDERED: IOVERSOL 50ml IV ONE (07:03)
[2019-12-16] MEDS ORDERED: INDOMETHACIN 50 MG SUPP PR ONE (07:14)
--- NOTE | 2019-12-16 07:23 | History & Physical Bridge Note ---
Date of Service December 16, 2019 History & Physical Bridge Note I have examined the patient, reviewed the History & Physical and in the interval since the performance of the History & Physical I have noted the following changes of clinical significance: no changes noted Urgent ERCP today
[2019-12-16] MEDS ORDERED: ONDANSETRON INJ 2 MG/ML 2 ML VIAL IV PRN (07:42)
[2019-12-16] MEDS ORDERED: HYDROmorphone INJ 1 MG/ML SYRINGE IV PRN (07:42)
[2019-12-16] MEDS ORDERED: ATROPINE SULFATE 0.1 MG/ML 10ML SYR IV PRN (07:42)
[2019-12-16] MEDS ORDERED: fentaNYL citrate 100 MCG/2 ML VIAL IV PRN (07:42)
[2019-12-16] MEDS ORDERED: ePHEDrine sulfate 50 MG/ML AMP IV PRN (07:42)
[2019-12-16] MEDS ORDERED: DEXAMETHASONE SOD INJ 4 MG/ML VIAL ONE (07:54)
--- NOTE | 2019-12-16 08:13 | Electrocardiogram Report ---
Test Reason : Blood Pressure : / mmHG Vent. Rate : 076 BPM Atrial Rate : 076 BPM P-R Int : 176 ms QRS Dur : 074 ms QT Int : 390 ms P-R-T Axes : 066 -41 054 degrees QTc Int : 438 ms Poor data quality, interpretation may be adversely affected Normal sinus rhythm Left axis deviation Moderate voltage criteria for LVH, may be normal variant Abnormal ECG When compared with ECG of 09-AUG-2013 08:35, No significant change was found Confirmed by Diego Cutler ([id number]) on 12/16/2019 8:13:19 AM Referred By: Confirmed By:Diego Cutler
--- NOTE | 2019-12-16 09:08 | Operative Report ---
Post Operative Report Pre & Post Diagnosis Operation Date: 12/16/19 07:30 Pre-Op Diagnosis: ACUTE CHOLECYSTITIS, PYOGENIC CHOLANITIS Post-Op Diagnosis: ACUTE CHOLECYSTITIS, PYOGENIC CHOLANITIS I identified the patient and participated in the time-out.: Yes Procedure Operation Date: 12/16/19 07:30 Actual Procedures p Endoscopic Retrograde Cholangiopancreatography(Not Applicable) - Mae Thakur MD Surgeon Mae Thakur MD Campus President None Estimated Blood Loss 0 Findings See Below (Many large CBD stones removed, Pus drained, Stents placed) Specimens None Description of Procedure ERCP I attest to the content of the Intraoperative Record and any orders documented therein. Any exceptions are noted below.
--- NOTE | 2019-12-16 09:39 | GI REPORT ---
Patient Name: Olena Sweeney Procedure Date: 12/16/2019 7:16 AM Date of : 1940 Admit Type: Inpatient Age: 79 Gender: Female Attending MD: Mae Thakur MD Procedure: ERCP Providers: Mae Thakur MD Referring MD: Darian Vazquez Md, Sebastián Pederson, Ramon Walker M.d., Marquise Reynaga MD Indications: Bile duct stone on Computed Tomogram Scan, For therapy of ascending cholangitis, Elevated liver enzymes Medicines: General Anesthesia Complications: No immediate complications. Estimated Blood Loss: Estimated blood loss: none. Procedure: Pre-Anesthesia Assessment: - Prior to the procedure, a History and Physical was performed, and patient medications, allergies and sensitivities were reviewed. The patient's tolerance of previous anesthesia was reviewed. - The risks and benefits of the procedure and the sedation options and risks were discussed with the patient. All questions were answered and informed consent was obtained. - Patient identification and proposed procedure were verified prior to the procedure by the physician and the nurse. The procedure was verified in the procedure room. - Pre-procedure physical examination revealed no contraindications to sedation. After obtaining informed consent, the scope was passed under direct vision. Throughout the procedure, the patient's blood pressure, pulse, and oxygen saturations were monitored continuously. The Scope was introduced through the mouth, and advanced to the duodenum and used to inject contrast into the bile duct. The ERCP was accomplished without difficulty. The patient tolerated the procedure well. Findings: The harp repairer film was normal. The esophagus was successfully intubated under direct vision. The scope was advanced to a normal major papilla in the descending duodenum without detailed examination of the pharynx, larynx and associated structures, and upper GI tract. The upper GI tract was grossly normal. Pus was emerging from the major papilla. The major papilla was small. The ventral pancreatic duct was inadvertently cannulated with the short-nosed traction sphincterotome and guidewire. The guidewire was kept in place to assist in biliary ductal cannulation. A 0.035 inch straight Acrobat wire was passed into the biliary tree. The Fusion OMNI sphincterotome was passed over the guidewire and the bile duct was then deeply cannulated. Contrast was injected. I personally interpreted the bile duct images. Ductal flow of contrast was adequate. Image quality was adequate. Contrast extended to the main bile duct. The main bile duct was dilated. The largest diameter was 14 mm proximally and 8 mm distally. The entire main bile duct, cystic duct and right main hepatic duct contained multiple stones. The biliary orifice was stenotic. This appeared benign. Short biliary sphincterotomy was made with a monofilament traction (standard) sphincterotome using ERBE electrocautery. There was no post-sphincterotomy bleeding. Bile duct orifice was successfully dilated with a 10 mm balloon dilator. The biliary tree was swept with a 15 mm balloon starting at the bifurcation. Pus was swept from the duct. Many (around 20 stones) large stones were removed. A few larger stones remained. In view of ongoing cholangitis, decision made to place a stent for drainage and defer complete removal of the stones for the repeat ERCP few weeks later. One 5 Fr by 9 cm plastic pancreatic stent with a single external pigtail and no internal flaps was placed into the ventral pancreatic duct. Clear fluid flowed through the stent. The stent was in good position. One 10 Fr by 7 cm plastic biliary stent with a single external pigtail and a single internal pigtail was placed into the common bile duct. Bile flowed through the stent. The proximal end was anchored deep in the left hepatic duct. This will allow bile drainage around the stent and prevent occlusion of the duct by stone impaction. The stent was in good position. Indomethacin 100 mg was given via suppository to decrease the risk of post-ERCP pancreatitis (PEP). Impression: - Pus was seen in the major papilla consistent with ascending cholangitis. - Choledocholithiasis was found. A biliary sphincterotomy and balloon sphincteroplasty was performed. Many large stones removed. - One plastic pancreatic stent was placed into the ventral pancreatic duct and Indomethacin given to decrease risk of post-ERCP pancreatitis. - One plastic biliary stent was placed into the common bile duct. Recommendation: - Return patient to [facility] for [facility] care. - Avoid aspirin and nonsteroidal anti-inflammatory medicines for 5 days. - Refer to a surgeon for cholecystectomy this admission. - Repeat ERCP in 4 weeks to remove the stents, dilate the CBD to 14 mm and remove the remaining stones. - Complete a 10 days course of PO ABx upon discharge. - Monitor LFTs. Mae Thakur MD 12/16/2019 9:38:56 AM This report has been signed electronically. Note Initiated On: 12/16/2019 7:16 AM Number of Addenda: 0 I attest to the content of the Intraoperative Record and orders documented therein, exceptions below {[id number]}
--- NOTE | 2019-12-16 09:57 | Anesthesiology Progress Note ---
Date of Service December 16, 2019 Anesthesia Post Procedure Vital Signs Vital Signs: Temp Pulse Pulse Pulse Resp BP BP 12/16/19 09:50 36.2 C L 86 20 118/69 12/16/19 09:40 88 17 119/68 12/16/19 09:30 89 18 123/65 12/16/19 09:20 36.7 C 92 H 21 135/67 12/16/19 04:34 36.8 C 72 20 12/15/19 23:57 36.9 C 72 21 12/15/19 23:29 78 12/15/19 19:42 37.0 C 78 18 12/15/19 19:07 80 12/15/19 19:00 36.9 C 81 18 12/15/19 18:31 79 12/15/19 18:30 79 20 129/70 12/15/19 18:01 81 12/15/19 18:00 82 138/71 12/15/19 17:57 83 139/75 12/15/19 17:02 96 H 12/15/19 17:01 110 H 153/83 H 12/15/19 16:40 38.0 C H 12/15/19 16:31 86 12/15/19 16:30 87 154/75 H 12/15/19 16:04 83 20 12/15/19 16:01 18 12/15/19 16:00 80 165/77 H 12/15/19 15:33 76 12/15/19 15:30 167/80 H 12/15/19 15:16 37.3 C 82 20 12/15/19 15:11 77 20 12/15/19 15:09 80 20 190/91 H BP Pulse Ox 12/16/19 09:50 94 12/16/19 09:40 95 12/16/19 09:30 96 12/16/19 09:20 95 12/16/19 04:34 154/81 H 95 12/15/19 23:57 122/71 93 12/15/19 23:29 12/15/19 19:42 143/74 H 94 12/15/19 19:07 12/15/19 19:00 134/76 94 12/15/19 18:31 12/15/19 18:30 100 12/15/19 18:01 100 12/15/19 18:00 100 12/15/19 17:57 100 12/15/19 17:02 97 12/15/19 17:01 96 12/15/19 16:40 12/15/19 16:31 96 12/15/19 16:30 96 12/15/19 16:04 94 12/15/19 16:01 92 12/15/19 16:00 92 12/15/19 15:33 12/15/19 15:30 12/15/19 15:16 95 12/15/19 15:11 94 12/15/19 15:09 94 Pain Intensity Abdomen: Pain Intensity: 4 Transfer of Care Handoff Completed per policy Notes Mental Status: alert / awake / arousable and participated in evaluation Patient Amnestic to Procedure: Yes Nausea / Vomiting: adequately controlled Pain: adequately controlled Airway Patency, RR, SpO2: stable & adequate BP & HR: stable & adequate Hydration State: stable & adequate Anesthetic Complications: no major complications apparent and Pt Satisfied with anesthetic care
[2019-12-16] MEDS: DULOXETINE HCL 30 MG CAP PO SCH (11:00)
--- NOTE | 2019-12-16 11:14 | Hospitalist Progress Note ---
Date of Service December 16, 2019 Assessment & Plan (1) Sepsis: 2nd to ascending cholangitis and acute cholecystitis. Blood cx's thus far negative. Remains on IV zosyn. s/p ERCP today with CBD stones removed, CBD stent placed, and pancreatic duct stent placed. Appreciate [facility] assistance. Needs lap alexander - gen surg consulted. (2) Acute cholecystitis: General surgery consultation for lap alexander. Cont IV Fluids. Cont IV antibiotics. Cont pain meds. NPO. (3) Ascending cholangitis: confirmed via ERCP today. numerous CBD stones and purulent fluid in the CBD. s/p stone extraction, CBD stent placement, pancreatic duct stent placement. appreciate [facility] consult and assistance. Cont IV zosyn. Will need about 2 weeks of IV/PO antibiotics. (4) Hypothyroidism: TSH 08/2019 wnl. Cont synthroid. (5) Gallstone pancreatitis: lipase 1037 today. cont copious LR - currently 250cc/hr. can cut rate to 200cc/hr until the AM, then 150cc/hr thereafter. repeat lipase am. (6) DVT prophylaxis: hold chemical means due to ERCP today and impending lap alexander SCDs in meantime update family Admission and Anticipated Discharge Date Admission Date: December 15, 2019 Subjective saw patient after her ERCP this am. she was c/o dry mouth and requesting ice chips. no nausea, emesis. minimal abdominal pain/discomfort. denied dyspnea. denied chest pain. tele overnight - NSR. Review of Systems Constitutional: + fatigue Respiratory: no cough and no dyspnea Cardiovascular: no chest pain Physical Exam Constitutional: + ill appearing; no acute distress, + not appropriately hydrated and no altered mental status Eyes: + anicteric sclerae ENMT: Mouth: + dry oral mucous membranes Respiratory: normal respiratory effort, lungs clear to auscultation Cardiovascular: Rate/Rhythm: regular rate and regular rhythm Heart Sounds: normal S1 and normal S2; no murmur Vessels: posterior tibial pulses present and dorsalis pedis pulses present; no JVD Extremities: no edema Gastrointestinal (Abdomen): normal bowel sounds, soft, nontender, no hepatosplenomegaly Inspection/Auscultation: abdomen not distended Skin: no jaundice Psychiatric: A+Ox3, euthymic affect Results & Data Results & Data ([facility]) Vital Signs (Past 12 Hours) Vital Signs Temp Pulse Pulse Pulse Resp BP BP 12/16/19 10:46 37 C 76 16 141/76 H 12/16/19 10:10 79 17 123/72 12/16/19 10:00 81 15 123/62 12/16/19 09:50 36.2 C L 86 20 118/69 12/16/19 09:40 88 17 119/68 12/16/19 09:30 89 18 123/65 12/16/19 09:20 36.7 C 92 H 21 135/67 12/16/19 04:34 36.8 C 72 20 154/81 H 12/15/19 23:57 36.9 C 72 21 122/71 12/15/19 23:29 78 Pulse Ox 12/16/19 10:46 93 12/16/19 10:10 95 12/16/19 10:00 95 12/16/19 09:50 94 12/16/19 09:40 95 12/16/19 09:30 96 12/16/19 09:20 95 12/16/19 04:34 95 12/15/19 23:57 93 12/15/19 23:29 Laboratory Results Laboratory Results - last 24 hr 12/15/19 12/16/19 12/16/19 23:01 02:30 12:43 WBC 15.64 H RBC 4.28 Hgb 13.3 Hct 38.7 MCV 90.4 MCH 31.1 MCHC 34.4 RDW Std Deviation 42.4 RDW Coeff of Leeanne 12.9 Plt Count 160 MPV 10.1 Sodium Potassium Chloride Carbon Dioxide Anion Gap BUN Creatinine Est Cr Clr Drug Dosing Est GFR ( Amer) Est GFR (Non-Af Amer) BUN/Creatinine Ratio Glucose Estimat Average Glucose Hemoglobin A1c Calcium Total Bilirubin AST ALT Alkaline Phosphatase Total Protein Albumin Globulin Albumin/Globulin Ratio Lipase Urine Color Dark Yellow Urine Appearance Clear Urine pH 7.0 Ur Specific [place] 1.023 Urine Protein Negative Urine Glucose (UA) Negative Urine Ketones Negative Urine Blood Trace H Urine Nitrite Negative Urine Bilirubin Negative Urine Urobilinogen Negative Ur Leukocyte Esterase Negative Urine WBC (Auto) 0 Urine RBC (Auto) 0-4 U Hyaline Cast (Auto) 0 U Epithel Cells (Auto) 5-10 H Urine Bacteria (Auto) Negative COVID-19 PCR NEGATIVE 12/16/19 12/16/19 12:43 12:43 WBC RBC Hgb Hct MCV MCH MCHC RDW Std Deviation RDW Coeff of Leeanne Plt Count MPV Sodium 136 Potassium 4.0 Chloride 104 Carbon Dioxide 25 Anion Gap 7.0 BUN 9 Creatinine 0.72 Est Cr Clr Drug Dosing 62.1 Est GFR ( Amer) 91.0 Est GFR (Non-Af Amer) 78.5 BUN/Creatinine Ratio 12.7 Glucose 155 H Estimat Average Glucose Pending Hemoglobin A1c Pending Calcium 8.7 Total Bilirubin 5.0 H AST 159 H ALT 260 H Alkaline Phosphatase 162 H Total Protein 6.6 Albumin 2.7 L Globulin 3.9 Albumin/Globulin Ratio 0.7 L Lipase 1037 H Urine Color Urine Appearance Urine pH Ur Specific [place] Urine Protein Urine Glucose (UA) Urine Ketones Urine Blood Urine Nitrite Urine Bilirubin Urine Urobilinogen Ur Leukocyte Esterase Urine WBC (Auto) Urine RBC (Auto) U Hyaline Cast (Auto) U Epithel Cells (Auto) Urine Bacteria (Auto) COVID-19 PCR PG Care Time/CCT Total # of Minutes Spent Total Time Spent with Patient: Total time spent is greater than 50% in coordination of care (as documented) at patient's floor/unit and/or counseling patient: Coding Level of Care Code 05711 Subseq Hosp Care Lvl 2 Diagnoses Sepsis A41.9 Sepsis type: sepsis due to unspecified organism Sepsis acute organ dysfunction status: unspecified Acute cholecystitis K81.0 Ascending cholangitis K83.09 Hypothyroidism E03.9 Hypothyroidism type: acquired Gallstone pancreatitis K85.10 DVT prophylaxis Z29.9 (1) Hypothyroidism Hypothyroidism type: acquired Qualified Code(s): E03.9 - Hypothyroidism, unspecified (2) Sepsis Sepsis type: sepsis due to unspecified organism Sepsis acute organ dysfunction status: unspecified Qualified Code(s): A41.9 - Sepsis, unspecified organism
[2019-12-16 13:00] LABS: Hematocrit (blood only) 38.7 % (37-47); Hemoglobin 13.3 g/dL (12.0-16.0); Mean Corpuscular Hemoglobin 31.1 pg (25-34); Mean Corpuscular Hgb Conc 34.4 g/dL (32-36); Mean Corpuscular Volume 90.4 fL (80-100); Mean Platelet Volume 10.1 fL (7.4-10.4); Platelet Count 160 K/uL (130-400); RDW Coefficient of Variation 12.9 % (11.5-14.5); RDW Standard Deviation 42.4 fL (36.4-46.3); Red Blood Count 4.28 M/uL (4.2-5.4); White Blood Count 15.64 K/uL (4.8-10.8)
--- NOTE | 2019-12-16 13:16 | Surgery Consultation ---
Date of Consultation December 16, 2019 Assessment & Plan (1) Acute cholecystitis: Discussed inpatient laparoscopic cholecystectomy with patient and the timing of this when her labs have improved. Patient would prefer to have Dr. Mcpherson do the procedure. Please consult his group in the morning. Will sign off. Thank you. Present on Admission?: Yes (2) Ascending cholangitis: s/p ERCP/ stone removal/ stent. Improving. Present on Admission?: Yes History of Present Illness Reason for Consultation: ascending cholangitis/ cholecystitis Requesting Physician: Sebastián Pederson Attending Physician: Sebastián Pederson History of Present Illness 79 yr old woman who developed acute onset of severe abdominal pain which caused her to call EMS. First time such an episode occurred. Pain was very intense, she thinks she passed out from the pain, localized in the right upper quadrant, developed fevers. No vomiting. Came to the ER and was found to have ascending cholangitis. S/p ercp/ stone removal/ stent today. Feels much better now. She is hungry and hoping to eat. Allergies Allergy/AdvReac Type Severity Reaction Status Date / Time No Known Allergies Allergy Unverified 12/15/19 16:24 Home Medications Home Medications Medication Instructions Recorded Confirmed Type duloxetine 30 mg capsule,delayed 30 mg PO DAILY #30 cap 09/24/19 12/15/19 Rx release levothyroxine 100 mcg tablet 100 mcg PO DAILY #90 tab 11/14/19 12/15/19 Rx Patient History Medical History Acute coronary syndrome (Inactive) H/O therapeutic radiation Hypothyroidism (Chronic) Peripheral neuropathy (Chronic) Seasonal allergies (Acute) Surgical History H/O breast surgery Family History Other No pertinent family history Social History Preferred Language: Syriac Communication Ability: Effective Nuclear Weapons Specialist Required: No Beliefs That Will Affect Care: Confucianism Confucianism Beliefs: Church. Current Living Situation: Alone Feels Safe at Home: Yes Smoking Status: Never smoker Hx Alcohol Use: No Hx Substance Use: No Review of Systems Review of Systems: All systems reviewed & are unremarkable except as noted in HPI & below Physical Exam Constitutional: WD/WN, vitals as above Eyes: PERRL Respiratory: normal respiratory effort, lungs clear to auscultation Cardiovascular: RRR, no murmur, no edema Gastrointestinal (Abdomen): normal bowel sounds, soft, nontender, no hepatosplenomegaly Neurologic: moves all extremities; no focal motor deficits Psychiatric: Orientation: alert and oriented x 3 Results & Data Vital Signs (Past 12 Hours) Vital Signs Temp Pulse Pulse Pulse Resp BP BP 12/16/19 12:09 70 26 H 125/74 12/16/19 11:31 75 23 12/16/19 11:30 75 22 139/74 12/16/19 11:00 77 25 H 139/80 12/16/19 10:46 37 C 76 16 141/76 H 12/16/19 10:40 78 24 141/75 H 12/16/19 10:39 12/16/19 10:10 79 17 123/72 12/16/19 10:00 81 15 123/62 12/16/19 09:50 36.2 C L 86 20 118/69 12/16/19 09:40 88 17 119/68 12/16/19 09:30 89 18 123/65 12/16/19 09:20 36.7 C 92 H 21 135/67 12/16/19 06:39 86 31 H 12/16/19 06:00 77 27 H 12/16/19 05:30 74 28 H 12/16/19 05:00 73 25 H 12/16/19 04:34 36.8 C 72 20 12/16/19 04:33 74 27 H 154/81 H 12/16/19 04:32 75 25 H 12/16/19 04:00 72 23 12/16/19 03:30 71 21 12/16/19 03:00 77 22 12/16/19 02:30 75 19 12/16/19 02:00 67 21 12/16/19 01:30 70 20 BP Pulse Ox 12/16/19 12:09 93 12/16/19 11:31 93 12/16/19 11:30 94 12/16/19 11:00 92 12/16/19 10:46 93 12/16/19 10:40 96 12/16/19 10:39 92 12/16/19 10:10 95 12/16/19 10:00 95 12/16/19 09:50 94 12/16/19 09:40 95 12/16/19 09:30 96 12/16/19 09:20 95 12/16/19 06:39 12/16/19 06:00 12/16/19 05:30 12/16/19 05:00 12/16/19 04:34 154/81 H 95 12/16/19 04:33 95 12/16/19 04:32 12/16/19 04:00 12/16/19 03:30 12/16/19 03:00 12/16/19 02:30 12/16/19 02:00 12/16/19 01:30 Laboratory Results Abnormal lab results 12/15/19 12/15/19 12/16/19 Range/Units 15:46 15:46 02:30 WBC 13.50 H (4.8-10.8) K/uL Neut # (Auto) 12.13 H (1.4-6.5) K/uL Lymph # (Auto) 0.48 L (1.2-3.4) K/uL [place] # (Auto) 0.83 H (0.11-0.59) K/uL Immature Gran # (Auto) 0.04 H (0.00-0.02) K/uL Sodium 132 L (136-145) mmol/L Glucose 170 H (70-99) mg/dl Total Bilirubin 4.1 H (0.2-1) mg/dl AST 512 H (15-37) U/L ALT 440 H (12-78) U/L Alkaline Phosphatase 188 H (45-117) U/L Globulin 4.5 H (2.5-4.0) gm/dl Albumin/Globulin Ratio 0.8 L (0.9-2) Lipase 466 H (73-393) U/L Urine Blood Trace H (Negative) U Epithel Cells (Auto) 5-10 H (0-5) /lpf 12/16/19 Range/Units 12:43 WBC 15.64 H (4.8-10.8) K/uL Neut # (Auto) (1.4-6.5) K/uL Lymph # (Auto) (1.2-3.4) K/uL [place] # (Auto) (0.11-0.59) K/uL Immature Gran # (Auto) (0.00-0.02) K/uL Sodium (136-145) mmol/L Glucose (70-99) mg/dl Total Bilirubin (0.2-1) mg/dl AST (15-37) U/L ALT (12-78) U/L Alkaline Phosphatase (45-117) U/L Globulin (2.5-4.0) gm/dl Albumin/Globulin Ratio (0.9-2) Lipase (73-393) U/L Urine Blood (Negative) U Epithel Cells (Auto) (0-5) /lpf Diagnostic Findings CT OF THE ABDOMEN AND PELVIS WITH CONTRAST CLINICAL HISTORY: Right upper quadrant abdominal pain. Fever. COMPARISON STUDY: None. TECHNIQUE: Following IV administration of 92 mL of Optiray-320, axial images of the abdomen and pelvis were obtained from the lung bases to the proximal femurs. Images were reviewed in the axial, sagittal, and coronal planes. IV contrast was administered without complication. Automated exposure control was utilized for the study. A dose lowering technique was utilized adhering to the principles of ALARA. CT DOSE: 1101.69 mGy.cm FINDINGS: Lung bases are unremarkable. No pneumatosis, free air or portal venous gas is present. There is moderate to marked intra and extrahepatic biliary ductal dilatation. The common bile duct measures 1.6 cm in caliber. There is mild wall thickening of the biliary tree. Extensive intraluminal material is noted within the intra and extrahepatic bile ducts. These suggest extensive calculi. There is minimal adjacent infiltration. The gallbladder is moderately distended. There is probable fatty infiltration of the liver. Major hepatic vessels are patent. There are no hepatic lesions. Pancreatic glandular atrophy is noted without pancreatic ductal dilatation. There is no peripancreatic infiltration. A cyst within lower pole the right kidney contains a thin septation. Multiple subcentimeter bilateral renal lesions are too small to characterize. The spleen and adrenal glands are normal. There is no evidence for a bowel obstruction. Colonic diverticulosis is noted without evidence for acute diverticulitis. The appendix is normal. There are no suspicious osseous lesions. There is no ascites. IMPRESSION: 1. Moderate to marked intra and extrahepatic biliary ductal dilatation. Extensive intraluminal contents within the biliary tree suggest extensive calculi. Given the clinical history, the findings suggest cholangitis and could reflect recurrent pyogenic cholangitis. GI consultation is recommended. 2. Moderate gallbladder distention. Superimposed acute cholecystitis cannot be excluded. ACT 112: Negative or not required by law.
[2019-12-16 13:39] LABS: Albumin Level 2.7 gm/dl (3.4-5.0); BUN Creatinine Ratio 12.7 (10-20); Calcium 8.7 mg/dl (8.5-10.1); Creatinine Clr Calc Pharmacy 62.1 ml/min; Est GFR (Non-African American) 78.5
[2019-12-16 13:53] LABS: Albumin Globulin Ratio 0.7 (0.9-2); Globulin 3.9 gm/dl (2.5-4.0); Total Protein 6.6 gm/dl (6.4-8.2)
--- NOTE | 2019-12-16 14:33 | Fluoroscopy Report ---
[place] ERCP biliary ductal CLINICAL HISTORY: STAT ERCP DONE IN THE O.R. COMPARISON STUDY: Abdomen and pelvis CT 12/15/2019. FLUOROSCOPY TIME: 4 minutes and 34 seconds.. FINDINGS: 217 fluoroscopic spot images were submitted. The ampulla was cannulated and contrast was in jected into the common bile duct. The common bile duct is distended and filled with multiple large st one. Multiple balloon sweeps were performed. The stones were unable to be extracted. Therefore, a com mon bile duct and main pancreatic duct stents were placed. These appear in good position. IMPRESSION: Fluoroscopy provided for ERCP. Multiple stones remain within the common bile duct. The co mmon bile duct and main pancreatic duct stents appear in good position. ACT 112: Negative or not required by law. Electronically signed by: Nicola Diaz M.D. 12/16/2019 2:32 PM
[2019-12-17] MEDS: LACTATED RINGER'S 1,000 ML IV SCH ×4 (00:32→19:12)
[2019-12-17] MEDS: PIPERACILLIN/TAZOBACTAM 3.375 GM in DEXTROSE 5% 100 ML IV SCH ×3 (04:54→20:47)
[2019-12-17] MEDS: LEVOTHYROXINE SODIUM 100 MCG TABLET PO SCH (05:35)
[2019-12-17 05:56] LABS: Hematocrit (blood only) 36.1 % (37-47); Hemoglobin 12.2 g/dL (12.0-16.0); Mean Corpuscular Hemoglobin 30.7 pg (25-34); Mean Corpuscular Hgb Conc 33.8 g/dL (32-36); Mean Corpuscular Volume 90.9 fL (80-100); Mean Platelet Volume 10.4 fL (7.4-10.4); Platelet Count 182 K/uL (130-400); RDW Standard Deviation 43.2 fL (36.4-46.3); Red Blood Count 3.97 M/uL (4.2-5.4); White Blood Count 12.76 K/uL (4.8-10.8)
[2019-12-17 06:33] LABS: Albumin Level 2.6 gm/dl (3.4-5.0); BUN Creatinine Ratio 19.5 (10-20); Calcium 8.4 mg/dl (8.5-10.1); Creatinine Clr Calc Pharmacy 55.9 ml/min; Est GFR (African American) 80.1; Est GFR (Non-African American) 69.1; Potassium 3.7 mmol/L (3.5-5.1)
[2019-12-17 06:43] LABS: Albumin Globulin Ratio 0.7 (0.9-2); Bilirubin,Total 2.5 mg/dl (0.2-1); Globulin 3.8 gm/dl (2.5-4.0); Total Protein 6.4 gm/dl (6.4-8.2)
--- NOTE | 2019-12-17 07:14 | Anesthesiology Progress Note ---
Date of Service December 17, 2019 Anesthesia Post Procedure Vital Signs Vital Signs: Temp Pulse Pulse Resp BP BP Pulse Ox 12/17/19 04:05 36.7 C 61 16 129/71 93 12/16/19 23:26 36.6 C 56 L 20 134/66 93 12/16/19 23:00 54 L 12/16/19 19:45 36.8 C 57 L 20 114/62 94 12/16/19 16:17 70 12/16/19 16:00 36.6 C 61 14 117/69 94 12/16/19 12:09 70 26 H 125/74 93 12/16/19 11:31 75 23 93 12/16/19 11:30 75 22 139/74 94 12/16/19 11:00 77 25 H 139/80 92 12/16/19 10:46 37 C 76 16 141/76 H 93 12/16/19 10:40 78 24 141/75 H 96 12/16/19 10:39 92 12/16/19 10:10 79 17 123/72 95 12/16/19 10:00 81 15 123/62 95 12/16/19 09:50 36.2 C L 86 20 118/69 94 12/16/19 09:40 88 17 119/68 95 12/16/19 09:30 89 18 123/65 96 12/16/19 09:20 36.7 C 92 H 21 135/67 95 Pulse Ox 12/17/19 04:05 12/16/19 23:26 12/16/19 23:00 12/16/19 19:45 12/16/19 16:17 12/16/19 16:00 94 12/16/19 12:09 12/16/19 11:31 12/16/19 11:30 12/16/19 11:00 12/16/19 10:46 12/16/19 10:40 12/16/19 10:39 12/16/19 10:10 12/16/19 10:00 12/16/19 09:50 12/16/19 09:40 12/16/19 09:30 12/16/19 09:20 Pain Intensity Abdomen: Pain Intensity: 4 Notes Mental Status: alert / awake / arousable Patient Amnestic to Procedure: Yes Nausea / Vomiting: adequately controlled Pain: adequately controlled Airway Patency, RR, SpO2: stable & adequate BP & HR: stable & adequate Hydration State: stable & adequate Anesthetic Complications: no major complications apparent
[2019-12-17] MEDS: DULOXETINE HCL 30 MG CAP PO SCH (08:03)
--- NOTE | 2019-12-17 08:32 | Gastroenterology Progress Note ---
Date of Service December 17, 2019 Assessment & Plan (1) Gallstone pancreatitis: (2) Ascending cholangitis: Pt is a 79 y/o female followed for gallstone pancreatitis and ascending cholangitis. She is s/p ERCP on 12/16/2019 w choledocholithiasis removal, biliary sphincterectomy, biliary and pancreatic stents placement. LFTs trending down, afebrile overnight. She is asymptomatic for abd pain, n/v - Antibx x 10 days for cholangitis - Monitor LFTs - Avoid ASA, NSAIDs 5 days after sphincterectomy - Repeat ERCP in 4 week's time to remove biliary stent, dilate CBD and remove remaining stones. - Surgery for cholecystectomy planned on 12/17 - GI to sign off; pls recall prn Admission and Anticipated Discharge Date Admission Date: December 15, 2019 Supervising Physician Co-Signing Physician Notes I performed a history and physical examination of the patient today, including specifically on physical exam - soft abdomen. I have discussed the patient's management with the advanced practitioner. Please refer to the nurse practitioner's note for the documented findings and plan of care. LFTs improved. Planned for Lap alexander tomorrow. Repeat ERCP in 4 weeks. Recall GI if needed. Subjective Pt feels well, denies any abd pain, n/v, tolerated CL diet. LFTs and WBC trending down. Afebrile overnight. Review of Systems Review of Systems: All systems reviewed & are unremarkable except as noted in HPI & below Physical Exam Constitutional: WD/WN, vitals as above well groomed, cooperative and comfortable Eyes: PERRL, conjunctivae normal, anicteric sclerae ENMT: external ear and nose normal, oropharynx normal Respiratory: normal respiratory effort, lungs clear to auscultation Cardiovascular: RRR, no murmur, no edema Gastrointestinal (Abdomen): normal bowel sounds, soft, nontender, no hepato splenomegaly Skin: no rashes, warm and dry no jaundice Neurologic: Motor/Sensory: no asterixis Psychiatric: A+Ox3, euthymic affect Lymphatic: no lymphedema Results & Data ([facility]) Vital Signs (Past 12 Hours) Vital Signs Temp Pulse Pulse Resp BP Pulse Ox 12/17/19 08:07 36.7 C 73 20 134/71 96 12/17/19 04:05 36.7 C 61 16 129/71 93 12/16/19 23:26 36.6 C 56 L 20 134/66 93 12/16/19 23:00 54 L
[2019-12-17 09:16] LABS: Estimated Average Glucose 126 mg/dl
--- NOTE | 2019-12-17 15:02 | Hospitalist Progress Note ---
Date of Service December 17, 2019 Assessment & Plan (1) Acute cholecystitis: From choledocolithiasis. S/p ERCP with Dr. Thakur on 12/15 with many stones found. - Plan for lap alexander with Dr. Mcpherson tomorrow - Continue Zosyn (2) Ascending cholangitis: Due to impacted gallbladder stone. Improved now. - Continue Zosyn (Abx x 10 days total.) - Avoid NSAID x 5 days (3) Hypothyroidism: TSH was 1.39 on admission. - Continue home levothyroxine 100 mcg. (4) DVT prophylaxis: SCDs - Holding heparin for surgery tomorrow Admission and Anticipated Discharge Date Admission Date: December 15, 2019 Subjective Feels great today. Wants to get up and take some walks. No pain at all. Reports no fevers/chills, chest pain, shortness of breath, abdominal pain, nausea, or vomiting. Physical Exam Constitutional: WD/WN, vitals as above Eyes: EOM intact bilaterally; no conjunctival abnormality ENMT: external ear and nose normal, oropharynx normal Neck: trachea midline, no thyromegaly normal visual inspection Respiratory: normal respiratory effort, lungs clear to auscultation no respiratory distress Cardiovascular: RRR, no murmur, no edema Gastrointestinal (Abdomen): Inspection/Auscultation: abdomen normal to inspection; abdomen not distended Musculoskeletal: no cyanosis or clubbing, extremities motor strength 5/5 Skin: no rashes, warm and dry Neurologic: moves all extremities and awake Psychiatric: Orientation: alert, oriented to person and cooperative Results & Data Results & Data ([facility]) Vital Signs (Past 12 Hours) Vital Signs Temp Pulse Pulse Resp BP Pulse Ox 12/17/19 08:07 36.7 C 73 20 134/71 96 12/17/19 08:00 63 12/17/19 04:05 36.7 C 61 16 129/71 93 PG Care Time/CCT Total # of Minutes Spent Total Time Spent with Patient: Total time spent is greater than 50% in coordination of care (as documented) at patient's floor/unit and/or counseling patient: Coding Level of Care Code 85940 Subseq Hosp Care Lvl 2 Diagnoses Acute cholecystitis K81.0 Ascending cholangitis K83.09 Hypothyroidism E03.9 Hypothyroidism type: acquired DVT prophylaxis Z29.9 (1) Hypothyroidism Hypothyroidism type: acquired Qualified Code(s): E03.9 - Hypothyroidism, unspecified
[2019-12-17] MEDS: ACETAMINOPHEN 325 MG TAB PO PRN (23:51)
[2019-12-18] MEDS: LACTATED RINGER'S 1,000 ML IV SCH ×3 (02:30→15:01)
[2019-12-18] MEDS: PIPERACILLIN/TAZOBACTAM 3.375 GM in DEXTROSE 5% 100 ML IV SCH ×4 (04:20→21:58)
[2019-12-18] MEDS: LEVOTHYROXINE SODIUM 100 MCG TABLET PO SCH (06:16)
--- NOTE | 2019-12-18 07:26 | History & Physical Bridge Note ---
Date of Service December 18, 2019 History & Physical Bridge Note I have examined the patient, reviewed the History & Physical and in the interval since the performance of the History & Physical I have noted the following changes of clinical significance: no changes noted
[2019-12-18 08:07] LABS: Hematocrit (blood only) 38.8 % (37-47); Hemoglobin 12.9 g/dL (12.0-16.0); Mean Corpuscular Hemoglobin 30.2 pg (25-34); Mean Corpuscular Hgb Conc 33.2 g/dL (32-36); Mean Corpuscular Volume 90.9 fL (80-100); Mean Platelet Volume 10.6 fL (7.4-10.4); Platelet Count 227 K/uL (130-400); RDW Coefficient of Variation 13.1 % (11.5-14.5); RDW Standard Deviation 43.5 fL (36.4-46.3); Red Blood Count 4.27 M/uL (4.2-5.4); White Blood Count 8.08 K/uL (4.8-10.8)
[2019-12-18] MEDS: DULOXETINE HCL 30 MG CAP PO SCH (08:11)
[2019-12-18 08:41] LABS: Albumin Level 2.7 gm/dl (3.4-5.0); BUN Creatinine Ratio 11.4 (10-20); Calcium 8.5 mg/dl (8.5-10.1); Creatinine Clr Calc Pharmacy 51.7 ml/min; Est GFR (African American) 72.4; Est GFR (Non-African American) 62.5; Potassium 3.1 mmol/L (3.5-5.1)
[2019-12-18 08:44] LABS: Albumin Globulin Ratio 0.7 (0.9-2); Bilirubin,Total 1.6 mg/dl (0.2-1); Globulin 4.1 gm/dl (2.5-4.0); Total Protein 6.8 gm/dl (6.4-8.2)
[2019-12-18] MEDS ORDERED: PROPOFOL IV EMULSION 10 MG/ML 20 ML VIAL IV ONE (09:40)
[2019-12-18] MEDS ORDERED: ROCURONIUM BROMIDE 10 MG/ML 5 ML VIAL IV ONE (09:40)
[2019-12-18] MEDS ORDERED: LIDOCAINE HCL 2% 2 ML VIAL/AMP(20MG/ML) INFIL ONE (09:40)
--- NOTE | 2019-12-18 09:48 | Anesthesiology Consultation ---
Date of Service December 18, 2019 Assessment & Plan ASA ASA3 Proposed Anesthesia Anesthesia Type: General Risk / Benefits Reviewed With: PT / POA / Parent / Guardian, Accepts Plan and Informed Consent Obtained History Surgery Operation Date: 12/16/19 07:30 Proposed Procedures p Endoscopic Retrograde Cholangiopancreato - Mae Thakur MD Operation Date: 12/18/19 10:00 Proposed Procedures p Laparoscopic Cholecystectomy - Jareth Mcpherson MD, FACS Height/Weight Height: 5 ft 6 in Weight: 72.4 kg Allergies Allergy/AdvReac Type Severity Reaction Status Date / Time No Known Allergies Allergy Unverified 12/15/19 16:24 Medications Home Medications Medication Instructions Recorded Confirmed Last Taken duloxetine 30 mg capsule,delayed 30 mg PO DAILY #30 cap 09/24/19 12/15/19 Unknown release levothyroxine 100 mcg tablet 100 mcg PO DAILY #90 tab 11/14/19 12/15/19 Unknown Active Medications Generic Name Dose Route Start Last Admin Trade Name Freq PRN Reason Stop Dose Admin Acetaminophen 650 mg 12/15/19 19:07 12/17/19 23:51 Tylenol PO 01/14/20 19:06 650 mg Q4H PRN Administration Moderate Pain Duloxetine HCl 30 mg 12/16/19 09:00 12/18/19 08:11 Cymbalta PO 01/15/20 08:59 Not Given DAILY JOSE ELIAS Piperacillin Sod/Tazobactam 115 mls @ 28.75 mls/hr 12/15/19 21:00 12/18/19 08:36 Sod 3.375 gm/ Dextrose IV 12/25/19 20:59 Infused Q8H JOSE ELIAS Infusion Protocol Lactated Ringer's 1,000 mls @ 125 mls/hr 12/15/19 23:30 12/18/19 09:42 Lr IV 01/14/20 23:29 0 mls/hr .Q8H JOSE ELIAS Infusion Levothyroxine Sodium 100 mcg 12/16/19 06:30 12/18/19 06:16 Synthroid PO 01/15/20 06:29 100 mcg DAILYBB JOSE ELIAS Administration NPO Date Last Intake of Fluids: 12/17/19 Time Last Intake of Fluids: 23:00 Last Intake of Fluids Comment: Sip of water Date Last Intake of Solids: 12/17/19 Time Last Intake of Solids: 17:00 Past Medical History Medical History Acute coronary syndrome (Inactive) H/O therapeutic radiation Hypothyroidism (Chronic) Peripheral neuropathy (Chronic) Seasonal allergies (Acute) Exercise / Class Metabolic Activity II 4-5 Yardwork/Stairs/Walk up hill Past Family History Family History Other No pertinent family history Past Surgical History Surgical History H/O breast surgery Past Anesthesia History No Hx of Anesthesia Complications and No Family Hx of Anesthesia Complications History of PONV No Hx of PONV and No Hx of Motion Sickness Social History Smoking Status: Never smoker Hx Alcohol Use: No Hx Substance Use: No Review of Systems denies fever/cough/ colds/ chest pain/ SOB/ RONAL Constitutional: no fever and no chills Respiratory: no cough and no dyspnea denies RONAL Cardiovascular: no chest pain and no dyspnea on exertion Physical Exam Vital Signs Last Vital Signs Temp 36.8 C 12/18/19 07:29 Pulse 101 H 12/18/19 07:29 Resp 18 12/18/19 07:29 BP 115/76 12/18/19 07:29 Pulse Ox 92 12/18/19 07:29 ENMT Mouth: no TMJ abnormality and no dentition abnormality Thyromental Distance: > or= 3.5 Finger Breadths Mallampati Class: II Neck neck extension not limited Respiratory normal respiratory effort; no respiratory distress Auscultation: lungs clear to auscultation bilaterally Cardiovascular Rate/Rhythm: regular rate and regular rhythm Neurologic moves all extremities Psychiatric Orientation: alert and oriented x 3 Testing Laboratory Results 12/18/19 07:30 12/18/19 07:30 Hemoglobin A1c 6.0 % (4.5-5.6) H 12/16/19 12:43 Urine Color Dark Yellow 12/16/19 02:30 Urine Appearance Clear (Clear) 12/16/19 02:30 Urine pH 7.0 (4.5-7.5) 12/16/19 02:30 Ur Specific [place] 1.023 (1.000-1.030) 12/16/19 02:30 Urine Protein Negative (Negative) 12/16/19 02:30 Urine Glucose (UA) Negative (Negative) 12/16/19 02:30 Urine Ketones Negative (Negative) 12/16/19 02:30 Urine Nitrite Negative (Negative) 12/16/19 02:30 Ur Leukocyte Esterase Negative (Negative) 12/16/19 02:30 Urine WBC (Auto) 0 /hpf (0-5) 12/16/19 02:30 Urine RBC (Auto) 0-4 /hpf (0-4) 12/16/19 02:30 U Hyaline Cast (Auto) 0 /lpf (0-5) 12/16/19 02:30 U Epithel Cells (Auto) 5-10 /lpf (0-5) H 12/16/19 02:30 Urine Bacteria (Auto) Negative (Negative) 12/16/19 02:30 12/15/19 18:11 Aerobic Blood Culture - Preliminary Blood No growth in Aerobic bottle after 48 hours. Anaerobic Blood Culture - Preliminary No growth in Anaerobic bottle after 48 hours. 12/15/19 18:05 Aerobic Blood Culture - Preliminary Blood No growth in Aerobic bottle after 48 hours. Anaerobic Blood Culture - Preliminary No growth in Anaerobic bottle after 48 hours.
[2019-12-18] MEDS ORDERED: fentaNYL citrate 100 MCG/2 ML VIAL ONE ×2 (09:51→10:38)
[2019-12-18] MEDS ORDERED: ePHEDrine sulfate 50 MG/ML AMP IV PRN (09:59)
[2019-12-18] MEDS ORDERED: ATROPINE SULFATE 0.1 MG/ML 10ML SYR IV PRN (09:59)
[2019-12-18] MEDS ORDERED: ONDANSETRON INJ 2 MG/ML 2 ML VIAL IV PRN ×2 (09:59→13:11)
[2019-12-18] MEDS ORDERED: HYDROmorphone INJ 2 MG/ML SYR/VIAL IV PRN (09:59)
[2019-12-18] MEDS ORDERED: BUPIVACAINE 0.5 % 5 MG/1 ML MPF 30ML VIAL ONE (10:12)
[2019-12-18] MEDS ORDERED: NEOSTIGMINE METHYLSULFATE 5 MG/5 ML SYR ONE (11:04)
[2019-12-18] MEDS ORDERED: ONDANSETRON INJ 2 MG/ML 2 ML VIAL ONE (11:04)
[2019-12-18] MEDS ORDERED: DEXAMETHASONE SOD INJ 4 MG/ML VIAL ONE (11:04)
[2019-12-18] MEDS ORDERED: ePHEDrine sulfate 50 MG/ML SYR ONE (11:04)
[2019-12-18] MEDS ORDERED: GLYCOPYRROLATE 0.2 MG/ML VIAL ONE (11:04)
[2019-12-18] MEDS ORDERED: ACETAMINOPHEN 1,000 MG/100 ML VIAL IV ONE (11:44)
--- NOTE | 2019-12-18 11:44 | Post Operative Brief Note ---
PG Immediate Post Op with CF Date of Surgery December 18, 2019 Pre & Post Diagnosis Operation Date: 12/16/19 07:30 Pre-Op Diagnosis: ACUTE CHOLECYSTITIS, PYOGENIC CHOLANITIS Post-Op Diagnosis: ACUTE CHOLECYSTITIS, PYOGENIC CHOLANITIS Operation Date: 12/18/19 10:00 Pre-Op Diagnosis: Acute & chronic cholecystitis Post-Op Diagnosis: Acute & chronic cholecystitis I identified the patient and participated in the time-out.: Yes Procedure Operation Date: 12/16/19 07:30 Actual Procedures p Endoscopic Retrograde Cholangiopancreatography(Not Applicable) - Mae Thakur MD Operation Date: 12/18/19 10:00 Actual Procedures p Laparoscopic Cholecystectomy(Not Applicable) - Jareth Mcpherson MD, FACS Surgeon Jareth Mcpherson MD, FACS Annealing Furnace Operator None Estimated Blood Loss 10 Findings Consistent with Post-Op Diagnosis Specimens Specimen Description: A: gallbladder & contents Drains Vidal-Blackburn Drain (15Fr round x1)
--- NOTE | 2019-12-18 12:17 | Operative Report (OR) ---
DATE OF OPERATION: 12/18/2019 NAME OF OPERATION: Laparoscopic cholecystectomy with lysis of adhesions. STAFF SURGEON: Jareth Mcpherson MD. PLANER HAND: Yennifer Abernathy PA-C. ANESTHESIA: General. DESCRIPTION OF PROCEDURE: The patient was brought in the operating room and placed on the operating table in supine position. Her abdomen was prepped and draped in usual fashion. 0.5% plain Marcaine was used to anesthetize all incisions. Incision was made above the umbilicus, carrying dissection down to the fascia, placing a Veress needle producing pneumoperitoneum. An 11 mm port placed at this level and under visualization, three 5 mm ports were placed, 1 cephalad and 2 laterally. The patient was placed in reverse Trendelenburg position. Her gallbladder was very distended and thickened consistent with acute and chronic cholecystitis. It was aspirated of bile, which showed hydrops. Dissection was carried out after significant adhesions of the colon, duodenum and omentum to the gallbladder that were taken down. There was a significant distortion of the anatomy at the prudencio hepatis because of the longstanding disease. She had very large lymph nodes in this area. I gradually was able to identify the cystic duct right next to the gallbladder. It was very large and dilated. It was clipped and transected. Cystic artery was identified as well as a small branch, clipped and transected. At this point, the gallbladder was dissected away from the liver bed. There was significant acute and chronic disease with edema. The gallbladder was very large. It was full of stones. It was placed in an Endobag. After appropriate irrigation and hemostasis, a #15 round Vidal-Blackburn drain was placed through the lateral 5 mm port site into the subhepatic space, secured to the skin using 3-0 nylon suture. Using a 5 mm scope, the gallbladder was removed through the umbilical site. I did have to enlarge the fascial defect because there were so many stones in the gallbladder. At this point, the fascia was closed using interrupted 0 PDS suture and the skin reapproximated using 5-0 Prolene suture. My assistant to the director helped with prepping, draping, removal of the gallbladder and closure of the wounds. The patient was transferred to recovery room in stable condition. I attest to the content of the Intraoperative Record and any orders documented therein. Any exception s are noted below.
[2019-12-18] MEDS: fentaNYL citrate 100 MCG/2 ML VIAL IV PRN ×2 (12:26→12:31)
--- NOTE | 2019-12-18 12:50 | Anesthesiology Progress Note ---
Date of Service December 18, 2019 Anesthesia Post Procedure Vital Signs Vital Signs: Temp Pulse Pulse Resp BP Pulse Ox 12/18/19 12:35 62 157/77 H 98 12/18/19 12:25 61 121/96 100 12/18/19 12:15 67 164/98 H 100 12/18/19 12:05 37.4 C 78 168/83 H 99 12/18/19 09:47 36.7 C 70 146/108 H 99 12/18/19 07:29 36.8 C 101 H 18 115/76 92 12/17/19 23:39 36.6 C 47 L 20 143/86 H 94 12/17/19 19:08 36.8 C 62 18 143/67 H 96 12/17/19 15:39 36.7 C 58 L 18 144/85 H 94 Pain Intensity Abdomen: Pain Intensity: 4 Transfer of Care Handoff Completed per policy Notes Mental Status: alert / awake / arousable and participated in evaluation Patient Amnestic to Procedure: Yes Nausea / Vomiting: adequately controlled Pain: adequately controlled Airway Patency, RR, SpO2: stable & adequate BP & HR: stable & adequate Hydration State: stable & adequate Anesthetic Complications: no major complications apparent and Pt Satisfied with anesthetic care
[2019-12-18] MEDS ORDERED: PROMETHAZINE HCL 12.5 MG in SODIUM CHLORIDE 0.9% 50 ML IV PRN (13:11)
[2019-12-18] MEDS ORDERED: ACETAMINOPHEN 325 MG TAB PO PRN (13:11)
[2019-12-18] MEDS ORDERED: HYDROCODONE/ACETAMOPHEN 5/325MG TAB PO PRN ×2 (13:11)
--- NOTE | 2019-12-18 18:40 | Hospitalist Progress Note ---
Date of Service December 18, 2019 Assessment & Plan (1) Acute cholecystitis: From choledocolithiasis. S/p ERCP with Dr. Thakur on 12/15 with many stones found. - Plan for lap alexander with Dr. Mcpherson today. - Continue Zosyn for now. (2) Ascending cholangitis: Due to impacted gallbladder stone. Improved now. - Continue Zosyn (Abx x 10 days total.) - Avoid NSAID x 5 days (3) Hypothyroidism: TSH was 1.39 on admission. - Continue home levothyroxine 100 mcg. (4) DVT prophylaxis: SCDs - Holding heparin for surgery tomorrow Admission and Anticipated Discharge Date Admission Date: December 15, 2019 Subjective Doing great this morning. Ready for surgery. Physical Exam Constitutional: WD/WN, vitals as above Eyes: EOM intact bilaterally; no conjunctival abnormality ENMT: external ear and nose normal, oropharynx normal Neck: trachea midline, no thyromegaly normal visual inspection Respiratory: normal respiratory effort, lungs clear to auscultation no respiratory distress Cardiovascular: RRR, no murmur, no edema Gastrointestinal (Abdomen): Inspection/Auscultation: abdomen normal to inspection; abdomen not distended Musculoskeletal: no cyanosis or clubbing, extremities motor strength 5/5 Skin: no rashes, warm and dry Neurologic: moves all extremities and awake Psychiatric: Orientation: alert, oriented to person and cooperative Results & Data Results & Data ([facility]) Vital Signs (Past 12 Hours) Vital Signs Temp Pulse Pulse Resp BP Pulse Ox 12/18/19 14:35 36.2 C L 85 20 147/77 H 94 12/18/19 14:00 36.6 C 86 18 133/79 93 12/18/19 13:32 36.8 C 63 18 160/73 H 94 12/18/19 13:11 36.7 C 71 18 137/63 95 12/18/19 12:45 37.1 C 61 138/72 94 12/18/19 12:35 62 157/77 H 98 12/18/19 12:25 61 121/96 100 12/18/19 12:15 67 164/98 H 100 12/18/19 12:05 37.4 C 78 168/83 H 99 12/18/19 09:47 36.7 C 70 146/108 H 99 12/18/19 07:29 36.8 C 101 H 18 115/76 92 PG Care Time/CCT Total # of Minutes Spent Total Time Spent with Patient: Total time spent is greater than 50% in coordination of care (as documented) at patient's floor/unit and/or counseling patient: Coding Level of Care Code 33900 Subseq Hosp Care Lvl 2 Diagnoses Acute cholecystitis K81.0 Ascending cholangitis K83.09 Hypothyroidism E03.9 Hypothyroidism type: acquired DVT prophylaxis Z29.9 (1) Hypothyroidism Hypothyroidism type: acquired Qualified Code(s): E03.9 - Hypothyroidism, unspecified
[2019-12-18] MEDS: ACETAMINOPHEN 325 MG TAB PO PRN (22:09)
[2019-12-19] MEDS: LEVOTHYROXINE SODIUM 100 MCG TABLET PO SCH (04:54)
[2019-12-19] MEDS: PIPERACILLIN/TAZOBACTAM 3.375 GM in DEXTROSE 5% 100 ML IV SCH (04:54)
[2019-12-19 05:58] LABS: Basophils # (auto) 0.01 K/uL (0-0.2); Basophils % (auto) 0.1 %; Eosinophils # (auto) 0.01 K/uL (0-0.5); Eosinophils % (auto) 0.1 %; Hematocrit (blood only) 34.7 % (37-47); Hemoglobin 11.7 g/dL (12.0-16.0); Immature Granulocytes # (auto) 0.03 K/uL (0.00-0.02); Immature Granulocytes % (auto) 0.3 %; Lymphocytes # (auto) 0.98 K/uL (1.2-3.4); Lymphocytes % (auto) 8.7 %; Mean Corpuscular Hemoglobin 30.6 pg (25-34); Mean Corpuscular Hgb Conc 33.7 g/dL (32-36); Mean Corpuscular Volume 90.8 fL (80-100); Mean Platelet Volume 10.2 fL (7.4-10.4); Monocytes # (auto) 0.97 K/uL (0.11-0.59); Monocytes % (auto) 8.6 %; Neutrophils # (auto) 9.27 K/uL (1.4-6.5); Neutrophils % (auto) 82.2 %; Platelet Count 203 K/uL (130-400); RDW Standard Deviation 43.5 fL (36.4-46.3); Red Blood Count 3.82 M/uL (4.2-5.4); White Blood Count 11.27 K/uL (4.8-10.8)
--- NOTE | 2019-12-19 06:24 | Surgery Progress Note ---
Date of Service December 19, 2019 Assessment & Plan (1) Hx laparoscopic cholecystectomy: Patient is afebrile vital signs are stable She is up out of bed moving normally Taking minimal pain medication Drainage is expected Can discharge home from a surgical standpoint We will leave the drain until next week and see her in the office I will write for Reena Suggest continuing her on p.o. antibiotics for 4 to 5 days-eg Augmentin 875 twice daily Or other antibiotic per medical team Results & Data Vital Signs (Past 12 Hours) Vital Signs Temp Pulse Resp BP Pulse Ox 12/18/19 23:37 36.7 C 62 18 153/66 H 92 PG Care Time/CCT Total # of Minutes Spent Total Time Spent with Patient: Total time spent is greater than 50% in coordination of care (as documented) at patient's floor/unit and/or counseling patient: Coding Level of Care Code None Diagnoses Hx laparoscopic cholecystectomy Z90.49
[2019-12-19 06:31] LABS: BUN Creatinine Ratio 15.5 (10-20); Creatinine Clr Calc Pharmacy 52.3 ml/min; Est GFR (African American) 73.4; Est GFR (Non-African American) 63.4; Magnesium 1.9 mg/dl (1.8-2.4); Potassium 3.5 mmol/L (3.5-5.1)
[2019-12-19 06:33] LABS: Albumin Level 2.5 gm/dl (3.4-5.0); BUN Creatinine Ratio 15.3 (10-20); Bilirubin Direct 0.6 mg/dl (0-0.2); Calcium 7.9 mg/dl (8.5-10.1); Creatinine Clr Calc Pharmacy 52.3 ml/min; Est GFR (African American) 73.4; Est GFR (Non-African American) 63.4
[2019-12-19 06:36] LABS: Albumin Globulin Ratio 0.6 (0.9-2); Bilirubin,Total 1.2 mg/dl (0.2-1); Globulin 3.9 gm/dl (2.5-4.0); Total Protein 6.4 gm/dl (6.4-8.2)
[2019-12-19 06:45] LABS: Potassium 3.6 mmol/L (3.5-5.1)
[2019-12-19] MEDS: DULOXETINE HCL 30 MG CAP PO SCH (08:55)
--- NOTE | 2019-12-19 09:22 | Anesthesiology Progress Note ---
Date of Service December 19, 2019 Anesthesia Post Procedure Vital Signs Vital Signs: Temp Pulse Pulse Resp BP Pulse Ox 12/19/19 07:23 37.1 C 64 18 164/81 H 92 12/18/19 23:37 36.7 C 62 18 153/66 H 92 12/18/19 14:35 36.2 C L 85 20 147/77 H 94 12/18/19 14:00 36.6 C 86 18 133/79 93 12/18/19 13:32 36.8 C 63 18 160/73 H 94 12/18/19 13:11 36.7 C 71 18 137/63 95 12/18/19 12:45 37.1 C 61 138/72 94 12/18/19 12:35 62 157/77 H 98 12/18/19 12:25 61 121/96 100 12/18/19 12:15 67 164/98 H 100 12/18/19 12:05 37.4 C 78 168/83 H 99 12/18/19 09:47 36.7 C 70 146/108 H 99 Pain Intensity Abdomen: Pain Intensity: 4 Notes Mental Status: alert / awake / arousable and participated in evaluation Patient Amnestic to Procedure: Yes Nausea / Vomiting: adequately controlled Pain: adequately controlled Airway Patency, RR, SpO2: stable & adequate BP & HR: stable & adequate Hydration State: stable & adequate Anesthetic Complications: no major complications apparent and Pt Satisfied with anesthetic care
--- NOTE | 2019-12-19 20:44 | Discharge Summary ---
Date of Service December 19, 2019 Admission HPI Per Admitting Provider This is a 79 yo F with PMhx of hypothyroidism and depression, who was in her normal state of health yesterday. Last night she went to bed early due to not feeling well. This morning she went out to her kitchen to try to fix breakfast for herself and states that she passed out due to pain, she was able to call EMS herself once coming to, initially she was unable to pinpoint where exactly her pain was but currently states pain is localized to the RUQ. She admits to nausea, but no vomiting, and then subsequently developed a fever later today. She reports her pain is very mild at this point as she has been given pain medication in the ER. She thought that it was Tuesday morning whenever I was in to see her, and seems to be unable to grasp that the whole day has passed. She is otherwise alert and oriented and participates in Q&A appropriately. Here in the ER the pt is found to have significant findings on CT scan for moderate to marked intra and extrahepatic biliary ductal dilatation. Extensive intraluminal contents within the biliary tree suggest extensive calculi. Given the clinical history, the findings suggest cholangitis and could reflect recurrent pyogenic cholangitis. Moderate gallbladder distention, concerning for acute cholecystitis. Pt has been started on IV zosyn. GI has been consulted for ERCP. Principal Diagnosis Acute cholecystitis Discharge Exam Constitutional WD/WN, vitals as above Eyes EOM intact bilaterally; no conjunctival abnormality ENMT external ear and nose normal, oropharynx normal Neck trachea midline, no thyromegaly normal visual inspection Respiratory normal respiratory effort, lungs clear to auscultation no respiratory distress Cardiovascular RRR, no murmur, no edema Gastrointestinal (Abdomen) Inspection/Auscultation: abdomen normal to inspection; abdomen not distended Musculoskeletal no cyanosis or clubbing, extremities motor strength 5/5 Skin no rashes, warm and dry Neurologic moves all extremities and awake Psychiatric Orientation: alert, oriented to person and cooperative Discharge Data Allergies Allergy/AdvReac Type Severity Reaction Status Date / Time No Known Allergies Allergy Unverified 12/15/19 16:24 Consultations 12/15/19 18:06 ED Decision to Admit Stat 12/15/19 19:07 Consult Case Management - Discharge Planning Routine Consult Gastroenterology Routine Consult General Surgery Routine 12/17/19 07:26 Consult General Surgery Routine Procedures Performed Operation Date: 12/16/19 07:30 Actual Procedures p Endoscopic Retrograde Cholangiopancreatography(Not Applicable) - Mae Thakur MD Operation Date: 12/18/19 10:00 Actual Procedures p Laparoscopic Cholecystectomy(Not Applicable) - Jareth Mcpherson MD, FACS Ordered Studies 12/15/19 15:19 US point of care ultrasound Stat 12/15/19 15:50 CT abd pelvis IV con only Stat CT head/brain wo con Stat 12/16/19 06:58 [place] ERCP biliary ductal Stat Hospital Course (1) Acute cholecystitis: From choledocolithiasis. S/p ERCP with Dr. Thakur on 12/15 with many stones found. - Lap alexander with Dr. Mcpherson on 12/18/2019. - Patient did exceptionally well and was well and wanted to go home on 12/18. Cleared to go by surgery. Will follow up in 1 week with drain removal. - Continue antibiotics (Augmentin) for 4 more days per surgery recommendations. (2) Ascending cholangitis: Due to impacted gallbladder stone. Improved now. - Continued Zosyn inpatient (Abx x 10 days total. Discharged on Augmentin.) - Avoid NSAID x 5 days (3) Hypothyroidism: TSH was 1.39 on admission. - Continue home levothyroxine 100 mcg. (4) DVT prophylaxis: SCDs - Holding heparin for surgery tomorrow Total Time Total Time Spent Total Time Spent (In Minutes): 35 Discharge Plan Discharge Items Patient Disposition: Home - Self-Care Reason For Visit: ACUTE CHOLECYSTITIS, PYOGENIC CHOLANITIS Discharge Diagnosis: Choledocho lithiasis and cholangitis Acute and chronic cholecystitis Activity: Per Instructions section Activity Comment: light activity for 3 weeks Lifting: No more than 10 pounds Bathing Comment: may shower Sexual Activity: When tolerated Exercise/Sports: Wait until after follow-up appointment Exercise Comment: light activity for 3 weeks Non-emergency contact: Primary Care Provider and Surgeon Call non-emergency contact if: you have any medication questions, your symptoms worsen, your pain is not controlled, your pain is worsening, your pain is unusual for you, you have a fever, your temperature is above 101.5, your wound has increased redness, your wound has increased drainage and your wound pain has increased Follow-up/Referrals: Jareth Mcpherson MD, FACS [Physician] - Kayla Cheney MD [Primary Care Provider] - Mae Thakur MD [Hospitalist] - (Please call the office in the next 1-2 days to set up your ERCP in 4 weeks.) Diet: Regular Addtl Attending Provider Instructions: SPECIAL CARE INSTRUCTIONS: * Cover incisions and change daily for comfort/drainage. * May use ibuprofen for pain as tolerated. * Expect some swelling and bruising. Call your doctor if: * Temperature above 101 degrees * Pain not relieved by pain medicine ordered * There is increased drainage or redness from any incision * You have any unanswered questions or concerns [phone]. FOLLOW UP VISIT: If not already scheduled, please call the office for a follow-up visit. For next Tuesday or Tuesday for drain removal and wound check OFFICE PHONE NUMBER: Dr. Mcpherson Office Pending Studies at Discharge: No Stand-Alone Forms: [facility] A Fourth Act, Smoking Cessation Medications and DC Order Prescriptions: New hydrocodone-acetaminophen [[place]] 5-325 mg tablet 1 - 2 tab PO Q6H PRN (Reason: pain) Qty: 20 RF: 0 amoxicillin-pot clavulanate [Augmentin] 875-125 mg tablet 1 tab PO BID Qty: 8 RF: 0 Continued duloxetine 30 mg capsule,delayed release(DR/EC) 30 mg PO DAILY Qty: 30 RF: 1 levothyroxine [Synthroid] 100 mcg tablet 100 mcg PO DAILY Qty: 90 RF: 1 Discharge Orders: Discharge Order (Routine); Ordered 12/19/19 Ordered By: Darian Begum/Other Patient Handouts: A1C Admission Data Admit Date/Time: 12/15/19 18:09 Attending Provider: Darian Vazquez Admit Provider: Darian Vazquez Primary Care Provider: Kayla Cheney Other Providers: Darian Vazquez ; Marquise Reynaga ; Gracy Machuca ; Jareth Mcpherson Other Interventions: Discharge Summary Assessment (RN) Last Done: 12/19/19 10:21 DC Date/Time DO NOT enter until pt leaves facility: 12/19/19 13:42 Coding Level of Care Code D/C Day Management >30 mins Diagnoses Acute cholecystitis K81.0 Ascending cholangitis K83.09 Hypothyroidism E03.9 Hypothyroidism type: acquired DVT prophylaxis Z29.9
== END 2019-12-19 13:42 | disposition home or self-care (01) | DRG 853 ==
LOC: ED 15:00 → SUATTDRO 18:09 → 2E 18:09 → 2W 12-17 15:02

== ENCOUNTER 2020-10-10 18:37 | Observation (INO) ==
[2020-10-10] MEDS ORDERED: SODIUM CHLORIDE 0.9% 1000ML 1,000 ML IV ONE (18:59)
--- NOTE | 2020-10-10 19:10 | Emergency Department Note ---
History of Present Illness General Chief complaint: Dizziness Stated complaint: FEELING FAINT, LIGHT HEADED Time Seen by Provider: 10/10/20 18:45 Source: patient Mode of arrival: ambulatory Limitations: no limitations History of Present Illness Provider complaint: Dizziness, near syncope Onset (ago): hour(s) 4 Location: head Maximum Pain Intensity: 0 Current Pain Intensity: 0 Associated symptoms: + weakness; no chest pain, no fever/chills, no headaches, no nausea/vomiting and no shortness of breath Treatments prior to arrival: none This is an 80-year-old female presents to the emergency department due to concern for dizziness and near syncope. Patient states symptoms started while she was out shopping this afternoon between 3 and 4. Patient states she felt fine earlier in the day, and ate and drank normally. Patient admits to poor intake of water, and was concern initially for hypoglycemia as she states she did not eat a normal amount at lunch. Patient sat down with a friend and tried to eat something however did not feel improvement. She states she feels fine and symptoms charly when she is lying flat, however when she sits up or tries to stand her symptoms worsen. Patient denies any cardiac history. Patient states she takes medication for thyroid dysfunction however no other medications. No antiplatelet or anticoagulation therapy. Patient denies any new medications. Patient denies any recent illness or known sick contact. No recent change in bowel or bladder function. Pt seen during a time of high acuity and national emergency pandemic while wearing PPE. Home Medications Medication Instructions Recorded Confirmed Type levothyroxine [Synthroid] 100 mcg PO QAM 10/10/20 10/10/20 History metronidazole 1 applic TOPICAL BID 10/10/20 10/10/20 History triamcinolone acetonide 1 applic TOPICAL DAILY 10/10/20 10/10/20 History Allergies Allergy/AdvReac Type Severity Reaction Status Date / Time No Known Allergies Allergy Verified 10/10/20 19:22 Past Med/Surg History Medical History Acute coronary syndrome H/O therapeutic radiation Hypothyroidism Peripheral neuropathy Seasonal allergies Surgical History H/O breast surgery Hx laparoscopic cholecystectomy (12/18/19) Laparoscopic cholecystectomy with lysis of adhesions. Dr. Mcpherson 12/18/2019 Family History Mother Myocardial infarction Other No pertinent family history Denies family history of Ovarian cancer Prostate cancer Breast cancer Colorectal cancer Social History Smoking Status: Never smoker Second Hand Exposure: Yes; Hx Alcohol Use: No Hx Substance Use: No Preferred Language: Chinese Communication Ability: Effective Visual Impairment: Partially Limited Hearing Ability: Normal Case Fitter Required: No Beliefs That Will Affect Care: None marital status: Single Current Living Situation: Alone current occupational status: retired How many Children do You have: 0 Feels Safe at Home: Yes Safety Concerns: Feels Safe At This Time during the past year weight has: remained stable Dental Care, Regularly: Yes Physical Activity Frequency: 3-4 Times per Week Seatbelt Use: always Sunscreen Use: Yes Assistive Devices: Denture - Lower and Glasses Review of Systems See HPI for pertinent positives & negatives. and A total of 10 systems reviewed and were otherwise negative Physical Exam Vital Signs Vital Signs - 24 hr 10/10/20 18:40 10/10/20 19:01 10/10/20 19:30 Temperature 36.5 C Temperature Source Temporal Artery Scan Pulse Rate 146 H 125 H 139 H Pulse Rate from SpO2 Sensor 100 H 135 H Respiratory Rate 18 18 18 Blood Pressure 153/78 H 164/77 H 132/105 H Blood Pressure Mean 103 106 114 Pulse Oximetry 96 96 95 Oxygen Delivery Method Room Air Sepsis Recent Fever Within 48 Hours No Sepsis New/Unexplained Change in Mental Status No Sepsis Action Taken by Nursing No Action Required 10/10/20 19:54 10/10/20 20:01 10/10/20 20:33 Temperature Temperature Source Pulse Rate 135 H 79 71 Pulse Rate from SpO2 Sensor 60 Respiratory Rate 25 H 24 Blood Pressure 132/105 H 117/97 146/83 H Blood Pressure Mean 103 104 Pulse Oximetry 96 Oxygen Delivery Method Sepsis Recent Fever Within 48 Hours Sepsis New/Unexplained Change in Mental Status Sepsis Action Taken by Nursing 10/10/20 21:00 10/10/20 21:30 10/10/20 22:00 Temperature Temperature Source Pulse Rate 64 64 67 Pulse Rate from SpO2 Sensor 64 64 65 Respiratory Rate 18 19 23 Blood Pressure 133/77 130/77 129/82 Blood Pressure Mean 95 94 97 Pulse Oximetry 95 95 96 Oxygen Delivery Method Sepsis Recent Fever Within 48 Hours Sepsis New/Unexplained Change in Mental Status Sepsis Action Taken by Nursing 10/10/20 22:30 Temperature Temperature Source Pulse Rate 67 Pulse Rate from SpO2 Sensor 69 Respiratory Rate 22 Blood Pressure 158/84 H Blood Pressure Mean 108 Pulse Oximetry 96 Oxygen Delivery Method Sepsis Recent Fever Within 48 Hours Sepsis New/Unexplained Change in Mental Status Sepsis Action Taken by Nursing GENERAL: alert, well appearing, well nourished, no distress, non-toxic EYE EXAM: normal conjunctiva, PERRL and EOM's grossly intact, no nystagmus OROPHARYNX: no exudate, no erythema, lips, buccal mucosa, and tongue normal and mucous membranes are moist NECK: supple, no nuchal rigidity, no adenopathy, non-tender LUNGS: Clear to auscultation. Normal chest wall mechanics, no w/r/r HEART: no murmurs, S1 normal and S2 normal, patient was noted to have intermittent tachycardia on telemetry suggestive of possible underlying par oxysmal A. fib ABDOMEN: abdomen soft, non-tender, normo-active bowel sounds, no masses, no rebound or guarding. BACK: Back is symmetrical on inspection and there is no deformity, no midline tenderness, no CVA tenderness. SKIN: no rashes and no bruising UPPER EXTREMITIES: upper extremities are grossly normal. FROM, nml pulses b/l. LOWER EXTREMITIES: No pitting edema. FROM, nml pulses b/l. NEURO EXAM: Normal sensorium, cranial nerves II-XII grossly intact, normal speech, no facial droop, no gross weakness of arms, no gross weakness of legs. Gross sensation intact. Course Course 1908: Patient still with intermittent episodes of A. fib with RVR. 1944: Patient still symptomatic with position change, still having intermittent episodes of A. fib with RVR which only last several seconds at a time and then break spontaneously. 2049: Patient has had fewer episodes of paroxysmal A. fib since administration of metoprolol 5 mg IV. Given elevated chads vas 2 score, discussed with her additional inpatient monitoring and echo, as well as establishment with cardiology for additional outpatient follow-up. Administered Medications Discontinued Medications Sodium Chloride (Nss 1000ml) 1,000 mls @ 999 mls/hr IV .Q1H1M ONE Stop: 10/10/20 19:59 Last Infusion: 10/10/20 21:25 Dose: 0 mls/hr Documented by: [id number] Admin: 10/10/20 19:54 Dose: 999 mls/hr Documented by: [id number] Metoprolol Tartrate (Metoprolol Tartrate 1 Mg/Ml Vial) 5 mg IV NOW STA Stop: 10/10/20 19:45 Last Admin: 10/10/20 19:54 Dose: 5 mg Documented by: [id number] Medical Decision Making Differential Diagnosis Differential diagnosis includes etiologies such as benign positional vertigo, dehydration, hypovolemia, anemia, tumor, infection, hypoglycemia, electrolyte abnormalities, cardiac sources, intracerebral event, toxicologic, neurologic, as well as others were entertained. Medical Records Attestation: I reviewed the patient's medical records. Home Medications Current Medication List: was personally reviewed by me Laboratory Data Attestation: I reviewed the patient's lab results. Result diagrams: 10/10/20 19:15 10/10/20 19:15 Lab Results 10/10/20 10/10/20 10/10/20 Range/Units 19:15 19:15 19:15 WBC 7.16 (4.8-10.8) K/uL RBC 4.34 (4.2-5.4) M/uL Hgb 13.8 (12.0-16.0) g/dL Hct 39.5 (37-47) % MCV 91.0 (80-100) fL MCH 31.8 (25-34) pg MCHC 34.9 (32-36) g/dL RDW Std Deviation 41.8 (36.4-46.3) fL RDW Coeff of Leeanne 12.4 (11.5-14.5) % Plt Count 260 (130-400) K/uL MPV 10.3 (7.4-10.4) fL Immature Gran % (Auto) 0.1 % Neut % (Auto) 65.5 % Lymph % (Auto) 22.5 % [place] % (Auto) 9.9 % Eos % (Auto) 1.7 % Baso % (Auto) 0.3 % Neut # (Auto) 4.69 (1.4-6.5) K/uL Lymph # (Auto) 1.61 (1.2-3.4) K/uL [place] # (Auto) 0.71 H (0.11-0.59) K/uL Eos # (Auto) 0.12 (0-0.5) K/uL Baso # (Auto) 0.02 (0-0.2) K/uL Immature Gran # (Auto) 0.01 (0.00-0.02) K/uL Sodium 136 (136-145) mmol/L Potassium 4.1 (3.5-5.1) mmol/L Chloride 102 (98-107) mmol/L Carbon Dioxide 26 (21-32) mmol/L Anion Gap 8.0 (3-11) BUN 17 (7-18) mg/dl Creatinine 0.87 (0.6-1.2) mg/dl Est Cr Clr Drug Dosing 50.7 ml/min Est GFR ( Amer) 71.9 ml/min Est GFR (Non-Af Amer) 62.0 ml/min BUN/Creatinine Ratio 19.2 (10-20) Glucose 137 H (70-99) mg/dl Calcium 9.2 (8.5-10.1) mg/dl Magnesium 2.2 (1.8-2.4) mg/dl Total Bilirubin 0.3 (0.2-1) mg/dl AST 21 (15-37) U/L ALT 23 (12-78) U/L Alkaline Phosphatase 89 (45-117) U/L Troponin I < 0.015 (0-0.045) ng/ml NT-Pro-B Natriuret Pep 268 (0-1800) pg/ml Total Protein 7.6 (6.4-8.2) gm/dl Albumin 3.6 (3.4-5.0) gm/dl Globulin 4.0 (2.5-4.0) gm/dl Albumin/Globulin Ratio 0.9 (0.9-2) Lipase 82 (73-393) U/L TSH 2.730 (0.300-4.500) uIu/ml Specimen Hemolysis Urine Color Urine Appearance (Clear) Urine pH (4.5-7.5) Ur Specific [place] (1.000-1.030) Urine Protein (Negative) Urine Glucose (UA) (Negative) Urine Ketones (Negative) Urine Blood (Negative) Urine Nitrite (Negative) Urine Bilirubin (Negative) Urine Urobilinogen (Negative) Ur Leukocyte Esterase (Negative) Urine WBC (Auto) (0-5) /hpf Urine RBC (Auto) (0-4) /hpf U Hyaline Cast (Auto) (0-5) /lpf U Epithel Cells (Auto) (0-5) /lpf Urine Bacteria (Auto) (Negative) Lyme Disease IgG Ab Negative (Negative) Lyme Disease IgM Ab Negative (Negative) COVID-19 Eval Order SARS-CoV-2 (PCR) (Negative) 10/10/20 10/10/20 10/10/20 Range/Units 19:15 21:00 21:00 WBC (4.8-10.8) K/uL RBC (4.2-5.4) M/uL Hgb (12.0-16.0) g/dL Hct (37-47) % MCV (80-100) fL MCH (25-34) pg MCHC (32-36) g/dL RDW Std Deviation (36.4-46.3) fL RDW Coeff of Leeanne (11.5-14.5) % Plt Count (130-400) K/uL MPV (7.4-10.4) fL Immature Gran % (Auto) % Neut % (Auto) % Lymph % (Auto) % [place] % (Auto) % Eos % (Auto) % Baso % (Auto) % Neut # (Auto) (1.4-6.5) K/uL Lymph # (Auto) (1.2-3.4) K/uL [place] # (Auto) (0.11-0.59) K/uL Eos # (Auto) (0-0.5) K/uL Baso # (Auto) (0-0.2) K/uL Immature Gran # (Auto) (0.00-0.02) K/uL Sodium (136-145) mmol/L Potassium (3.5-5.1) mmol/L Chloride (98-107) mmol/L Carbon Dioxide (21-32) mmol/L Anion Gap (3-11) BUN (7-18) mg/dl Creatinine (0.6-1.2) mg/dl Est Cr Clr Drug Dosing ml/min Est GFR ( Amer) ml/min Est GFR (Non-Af Amer) ml/min BUN/Creatinine Ratio (10-20) Glucose (70-99) mg/dl Calcium (8.5-10.1) mg/dl Magnesium (1.8-2.4) mg/dl Total Bilirubin (0.2-1) mg/dl AST (15-37) U/L ALT (12-78) U/L Alkaline Phosphatase (45-117) U/L Troponin I (0-0.045) ng/ml NT-Pro-B Natriuret Pep (0-1800) pg/ml Total Protein (6.4-8.2) gm/dl Albumin (3.4-5.0) gm/dl Globulin (2.5-4.0) gm/dl Albumin/Globulin Ratio (0.9-2) Lipase (73-393) U/L TSH (0.300-4.500) uIu/ml Specimen Hemolysis Urine Color Yellow Urine Appearance Clear (Clear) Urine pH 7.0 (4.5-7.5) Ur Specific [place] 1.008 (1.000-1.030) Urine Protein Negative (Negative) Urine Glucose (UA) Negative (Negative) Urine Ketones Negative (Negative) Urine Blood Negative (Negative) Urine Nitrite Negative (Negative) Urine Bilirubin Negative (Negative) Urine Urobilinogen Negative (Negative) Ur Leukocyte Esterase 2+ H (Negative) Urine WBC (Auto) 5-10 H (0-5) /hpf Urine RBC (Auto) 0-4 (0-4) /hpf U Hyaline Cast (Auto) 0 (0-5) /lpf U Epithel Cells (Auto) 10-20 H (0-5) /lpf Urine Bacteria (Auto) Negative (Negative) Lyme Disease IgG Ab (Negative) Lyme Disease IgM Ab (Negative) COVID-19 Eval Order Covid19 at [facility] SARS-CoV-2 (PCR) NEGATIVE (Negative) Imaging Data Radiologist's Impression: Chest X-Ray 10/10/20 19:00 XR chest 1V portable CLINICAL HISTORY: dizzy COMPARISON STUDY: Chest radiograph August 09, 2013. FINDINGS: Lung volumes are normal. Minimal left basilar opacity favors atelectasis or scarring. There is no pneumothorax or pleural effusion. Cardiac size is normal. Mediastinal contours are normal. There is no evidence for pulmonary edema. IMPRESSION: No acute cardiopulmonary findings. Minimal left basilar opacity which favors atelectasis or scarring. ACT 112: Negative or not required by law. Electronically signed by: Bishnu Cortez M.D. 10/10/2020 7:[address] 10/10/20 19:00 CT OF THE HEAD WITHOUT CONTRAST CLINICAL HISTORY: dizzy, near syncope COMPARISON STUDY: Head CT December 15, 2019. CT DOSE: 537.48 mGy.cm TECHNIQUE: Helical axial images of the head were obtained without IV contrast. Automated exposure control was utilized for the study. A dose lowering technique was utilized adhering to the principles of ALARA. FINDINGS: No acute intracranial hemorrhage, midline shift or mass effect is present. The ventricular system is stable. There is bilateral basal ganglia calcification. White matter hypodensity suggests small vessel disease. The basal cisterns are patent. No extra-axial collections are present. There are no findings to suggest acute dural sinus thrombosis or acute territorial infarct. No significant calvarial abnormalities are present. Visualized portions of the sinuses and mastoid air cells are clear. IMPRESSION: No acute intracranial findings. No change in appearance of the brain. ACT 112: Negative or not required by law. Electronically signed by: Bishnu Cortez M.D. 10/10/2020 8:36 PM ECG Data Attestation: I personally reviewed and interpreted this ECG as follows: Indication: + other Rate (beats per minute): 106 Rhythm: + sinus tachycardia ECG Intervals/blocks: + First degree AV block, + Normal QRS and + Normal QT ECG [place]: + Left axis deviation ECG ST segments: + Nonspecific ST abnormalities Additional Comments: EKG #2 performed at 1911 Normal sinus rhythm at 86, normal QRS, normal QTC, left axis, first-degree AV block no longer noted, no acute ST or T wave changes seen MDM Narrative This is an 80-year-old female who presents due to concern for dizziness and near syncopal events today. Patient was noted and placed on telemetry that she was having intermittent episodes of tachycardia which appear to be atrial fibrillation. Patient with no prior history of dysrhythmia and denies any prior cardiac history. There is record in EMR of [facility] although I cannot confirm this with the assistance of case management and reviewing [employer] EMR through [employer] system. Patient denies any prior heart attack, cardiac catheterization, or stent placement. Patient does not routinely see cardiology. No recent illness. Other labs drawn and sent and are reassuring, chest x-ray reassuring, CT head reassuring also given initial complaint of dizziness and near syncope. Patient was hydrated due to her concern for dehydration and upon discussing her typical diet and water intake, I do feel she is likely not taking in enough water. I do feel patient symptoms today are more likely related to the intermittent dysrhythmia and not her dehydration low. Given elevated chads vas 2 score and advanced age, with no established evp and no recent cardiac evaluation, I do feel patient would benefit from additional inpatient monitoring and cardiology evaluation. Case discussed with hospitalist for additional evaluation and management. Decision on anticoagulation deferred to hospitalist and cardiology team given intermittent episodes and otherwise low risk for coronary artery disease. An order was placed for continuous cardiac monitoring. The monitor shows a rate of _119_ with _atrial fibrillation_ rhythm. Impression & Plan Near syncope, Postural dizziness with near syncope, PAF (paroxysmal atrial fibrillation) Discharge Plan Visit Data Chief Complaint: Dizziness Stated Complaint: FEELING FAINT, LIGHT HEADED ED Provider: Kourtney Ramírez Discharge Problem: Near syncope, Postural dizziness with near syncope, PAF (paroxysmal atrial fibrillation) Patient Disposition: Admitted As Inpatient Discharge Instructions Interventions: ED Discharge Assessment Last Done: 10/10/20 23:19
[2020-10-10 19:25] LABS: Basophils # (auto) 0.02 K/uL (0-0.2); Basophils % (auto) 0.3 %; Eosinophils # (auto) 0.12 K/uL (0-0.5); Eosinophils % (auto) 1.7 %; Hematocrit (blood only) 39.5 % (37-47); Hemoglobin 13.8 g/dL (12.0-16.0); Immature Granulocytes # (auto) 0.01 K/uL (0.00-0.02); Immature Granulocytes % (auto) 0.1 %; Lymphocytes # (auto) 1.61 K/uL (1.2-3.4); Lymphocytes % (auto) 22.5 %; Mean Corpuscular Hemoglobin 31.8 pg (25-34); Mean Corpuscular Hgb Conc 34.9 g/dL (32-36); Mean Platelet Volume 10.3 fL (7.4-10.4); Monocytes # (auto) 0.71 K/uL (0.11-0.59); Monocytes % (auto) 9.9 %; Neutrophils # (auto) 4.69 K/uL (1.4-6.5); Neutrophils % (auto) 65.5 %; Platelet Count 260 K/uL (130-400); RDW Coefficient of Variation 12.4 % (11.5-14.5); RDW Standard Deviation 41.8 fL (36.4-46.3); Red Blood Count 4.34 M/uL (4.2-5.4); White Blood Count 7.16 K/uL (4.8-10.8)
--- NOTE | 2020-10-10 19:33 | XRay Report ---
XR chest 1V portable CLINICAL HISTORY: dizzy COMPARISON STUDY: Chest radiograph August 09, 2013. FINDINGS: Lung volumes are normal. Minimal left basilar opacity favors atelectasis or scarring. There is no pneumothorax or pleural effusion. Cardiac size is normal. Mediastinal contours are normal. The re is no evidence for pulmonary edema. IMPRESSION: No acute cardiopulmonary findings. Minimal left basilar opacity which favors atelectasis or scarring. ACT 112: Negative or not required by law. Electronically signed by: Bishnu Cortez M.D. 10/10/2020 7:31 PM
[2020-10-10] MEDS ORDERED: METOPROLOL TARTRATE 1 MG/ML VIAL IV STA (19:44)
[2020-10-10 19:59] LABS: Alanine Aminotransferase 23 U/L (12-78); Albumin Globulin Ratio 0.9 (0.9-2); Albumin Level 3.6 gm/dl (3.4-5.0); Alkaline Phosphatase 89 U/L (45-117); Aspartate Aminotransferase 21 U/L (15-37); BUN Creatinine Ratio 19.2 (10-20); Bilirubin,Total 0.3 mg/dl (0.2-1); Blood Urea Nitrogen 17 mg/dl (7-18); Calcium 9.2 mg/dl (8.5-10.1); Carbon Dioxide 26 mmol/L (21-32); Chloride 102 mmol/L (98-107); Creatinine Clr Calc Pharmacy 50.7 ml/min; Est GFR (African American) 71.9 ml/min; Glucose 137 mg/dl (70-99); Lipase 82 U/L (73-393); Magnesium 2.2 mg/dl (1.8-2.4); NT Pro B Type Natriuretic Pept 268 pg/ml (0-1800); Potassium 4.1 mmol/L (3.5-5.1); Sodium 136 mmol/L (136-145); Total Protein 7.6 gm/dl (6.4-8.2); Troponin I < 0.015 ng/ml (0-0.045)
[2020-10-10 20:30] LABS: Lyme Ab IgG w/WB Rflx Negative (Negative); Lyme Ab IgM w/WB Rflx Negative (Negative)
--- NOTE | 2020-10-10 20:37 | CT Scan Report ---
CT OF THE HEAD WITHOUT CONTRAST CLINICAL HISTORY: dizzy, near syncope COMPARISON STUDY: Head CT December 15, 2019. CT DOSE: 537.48 mGy.cm TECHNIQUE: Helical axial images of the head were obtained without IV contrast. Automated exposure con trol was utilized for the study. A dose lowering technique was utilized adhering to the principles o f ALARA. FINDINGS: No acute intracranial hemorrhage, midline shift or mass effect is present. The ventricular system is stable. There is bilateral basal ganglia calcification. White matter hypodensity suggests s mall vessel disease. The basal cisterns are patent. No extra-axial collections are present. There are no findings to suggest acute dural sinus thrombosis or acute territorial infarct. No significant isidro varial abnormalities are present. Visualized portions of the sinuses and mastoid air cells are clear. IMPRESSION: No acute intracranial findings. No change in appearance of the brain. ACT 112: Negative or not required by law. Electronically signed by: Bishnu Cortez M.D. 10/10/2020 8:36 PM
[2020-10-10 20:42] LABS: Appearance Urine Clear (Clear); Bacteria Urine Automated Negative (Negative); Bilirubin Urine Negative (Negative); Blood Urine Negative (Negative); Cast Urine Automated 0 /lpf (0-5); Color Urine Yellow; Glucose Urine UA Negative (Negative); Ketones Urine Negative (Negative); Leukocyte Esterase Urine 2+ (Negative); Nitrite Urine Negative (Negative); Protein Urine Negative (Negative); RBC Urine Automated 0-4 /hpf (0-4); Specific Gravity Urine 1.008 (1.000-1.030); Urobilinogen Urine Negative (Negative)
[2020-10-10] MEDS ORDERED: METOPROLOL TARTRATE 1 MG/ML VIAL IV PRN (22:45)
[2020-10-10] MEDS ORDERED: ONDANSETRON INJ 2 MG/ML 2 ML VIAL IV PRN (23:54)
[2020-10-10] MEDS ORDERED: ACETAMINOPHEN 325 MG TAB PO PRN (23:54)
[2020-10-11] MEDS ORDERED: NSS + 20MEQ KCL 20 MEQ/1,000 ML BAG IV SCH (00:15)
--- NOTE | 2020-10-11 01:19 | History & Physical Report ---
Date of Service October 11, 2020 The patient was seen and examined on October 10, 2020 Assessment & Plan (1) Postural dizziness with near syncope: Palpitations/postural dizziness/near syncope/atrial fibrillation with RVR- The patient will be admitted to telemetry for serial cardiac enzymes, serial E KG's, cardiac rhythm monitoring and a 2-D echocardiogram with Dopplers. CT of head without contrast negative Potassium normal at 4.1, magnesium normal at 2.2. Rate control with Lopressor 5 mg IV x1 resulted in conversion to normal sinus rhythm with heart rate in the low 60s and normal blood pressure. We will have available Lopressor 5 mg IV every 4 hours as needed for heart rate greater than 110 Consult cardiology Start aspirin 81 mg daily Present on Admission?: Yes (2) PAF (paroxysmal atrial fibrillation): Patient with new onset atrial fibrillation with RVR- Order echocardiogram as noted above, and consult cardiology Present on Admission?: Yes (3) Hypothyroidism: Continue levothyroxine 100 mcg daily. TSH normal Present on Admission?: Yes (4) Peripheral neuropathy: Patient reports that she has had chronic tingling in her lower extremities, which she associates with previous chemotherapy. Present on Admission?: Yes Admission and Anticipated Discharge Date Admission Date: October 10, 2020 History of Present Illness Chief Complaint: The patient presents to the emergency department with an episode of severe palpitations, dizziness and near syncope earlier in the day prior to arrival. Primary Care Provider: Kayla Cheney MD The patient is an 80-year-old female with a past medical history including sepsis, gallstone pancreatitis, acute cholecystitis, ascending cholangitis, syncope, hypothyroidism, peripheral neuropathy, and atypical chest pain. She reports that she was out shopping earlier in the day, and did have her usual breakfast and lunch. She was a lot going to a friend's place, she developed the symptoms as noted above, and was then brought to the emergency department for assessment. In the emergency department her symptoms had resolved and she was feeling completely back to her baseline. In the emergency department she was found to be in atrial fibrillation with RVR, and received Lopressor 5 mg IV, which then converted her to normal sinus rhythm. She did also receive 1 L normal saline in the ED. Allergies Allergy/AdvReac Type Severity Reaction Status Date / Time No Known Allergies Allergy Verified 10/10/20 19:22 Home Medications Medication Instructions Recorded Confirmed Type levothyroxine [Synthroid] 100 mcg PO QAM 10/10/20 10/10/20 History metronidazole 1 applic TOPICAL BID 10/10/20 10/10/20 History triamcinolone acetonide 1 applic TOPICAL DAILY 10/10/20 10/10/20 History Past Med/Surg History Medical History Acute coronary syndrome H/O therapeutic radiation Hypothyroidism Peripheral neuropathy Seasonal allergies Surgical History H/O breast surgery Hx laparoscopic cholecystectomy (12/18/19) Laparoscopic cholecystectomy with lysis of adhesions. Dr. Mcpherson 12/18/2019 Family History Mother Myocardial infarction Other No pertinent family history Denies family history of Ovarian cancer Prostate cancer Breast cancer Colorectal cancer Social History Smoking Status: Never smoker Second Hand Exposure: Yes; Hx Alcohol Use: No Hx Substance Use: No Preferred Language: Mosotho Communication Ability: Effective Visual Impairment: Partially Limited Hearing Ability: Normal Digital Marketing Coordinator Required: No Beliefs That Will Affect Care: None marital status: Single Current Living Situation: Alone current occupational status: retired How many Children do You have: 0 Feels Safe at Home: Yes Safety Concerns: Feels Safe At This Time during the past year weight has: remained stable Dental Care, Regularly: Yes Physical Activity Frequency: 3-4 Times per Week Seatbelt Use: always Sunscreen Use: Yes Assistive Devices: Denture - Lower and Glasses Review of Systems Review of Systems: The patient denies chest pain, shortness of breath, dyspnea on exertion, cough, lower extremity swelling, sore throat, fevers, chills, sweats, nausea, vomiting, diarrhea , constipation, abdominal pain, pelvic pain, blood in urine or stool, dysuria, urinary frequency or urgency, headache, memory loss, loss of consciousness, rash, abnormal bruising or bleeding, imbalance, focal or generalized weakness, numbness or tingling in arms or legs, generalized arthralgias or myalgias, back or neck pain, or night sweats. The review of systems is otherwise negative other than for that already noted above, and at least 10 systems have been reviewed. Physical Exam Physical Exam: The patient is awake, alert and oriented 3, well developed and well nourished, normocephalic and atraumatic, lying in bed and in no acute distress. HEENT--PERRL, EOMI, mucous membranes and oropharynx normal. Neck--supple. No JVD. No bruits. Thyroid normal, trachea midline, no adenopathy. Heart--normal S1 and S2. No murmurs, rubs or gallops. Lungs--clear bilaterally, no respiratory distress, no accessory muscle use. Abdomen--normal bowel sounds and soft. Nontender. Nondistended, no hernias or masses, no organomegaly. Extremities--no cyanosis or clubbing. No edema. Dermatologic--normal skin turgor, normal color, no abnormal lymph nodes, no rash. Neurologic--cranial nerves II through XII grossly intact. Rheumatologic--normal range of motion. Psychiatric--normal affect. Results & Data Results & Data ([facility]) Vital Signs (Past 12 Hours) Vital Signs Temp Pulse Pulse Resp BP BP Pulse Ox 10/11/20 00:04 64 10/10/20 23:49 98.1 F 62 20 136/91 97 10/10/20 22:30 67 22 158/84 H 96 10/10/20 22:00 67 23 129/82 96 10/10/20 21:30 64 19 130/77 95 10/10/20 21:00 64 18 133/77 95 10/10/20 20:33 71 24 146/83 H 96 10/10/20 20:01 79 25 H 117/97 10/10/20 19:54 135 H 132/105 H 10/10/20 19:30 139 H 18 132/105 H 95 10/10/20 19:01 125 H 18 164/77 H 96 10/10/20 18:40 97.7 F 146 H 18 153/78 H 96 Laboratory Results Laboratory Results WBC 7.16 K/uL (4.8-10.8) 10/10/20 19:15 RBC 4.34 M/uL (4.2-5.4) 10/10/20 19:15 Hgb 13.8 g/dL (12.0-16.0) 10/10/20 19:15 Hct 39.5 % (37-47) 10/10/20 19:15 MCV 91.0 fL (80-100) 10/10/20 19:15 MCH 31.8 pg (25-34) 10/10/20 19:15 MCHC 34.9 g/dL (32-36) 10/10/20 19:15 RDW Std Deviation 41.8 fL (36.4-46.3) 10/10/20 19:15 RDW Coeff of Leeanne 12.4 % (11.5-14.5) 10/10/20 19:15 Plt Count 260 K/uL (130-400) 10/10/20 19:15 MPV 10.3 fL (7.4-10.4) 10/10/20 19:15 Immature Gran % (Auto) 0.1 % 10/10/20 19:15 Neut % (Auto) 65.5 % 10/10/20 19:15 Lymph % (Auto) 22.5 % 10/10/20 19:15 [place] % (Auto) 9.9 % 10/10/20 19:15 Eos % (Auto) 1.7 % 10/10/20 19:15 Baso % (Auto) 0.3 % 10/10/20 19:15 Neut # (Auto) 4.69 K/uL (1.4-6.5) 10/10/20 19:15 Lymph # (Auto) 1.61 K/uL (1.2-3.4) 10/10/20 19:15 [place] # (Auto) 0.71 K/uL (0.11-0.59) H 10/10/20 19:15 Eos # (Auto) 0.12 K/uL (0-0.5) 10/10/20 19:15 Baso # (Auto) 0.02 K/uL (0-0.2) 10/10/20 19:15 Immature Gran # (Auto) 0.01 K/uL (0.00-0.02) 10/10/20 19:15 Sodium 136 mmol/L (136-145) 10/10/20 19:15 Potassium 4.1 mmol/L (3.5-5.1) 10/10/20 19:15 Chloride 102 mmol/L (98-107) 10/10/20 19:15 Carbon Dioxide 26 mmol/L (21-32) 10/10/20 19:15 Anion Gap 8.0 (3-11) 10/10/20 19:15 BUN 17 mg/dl (7-18) 10/10/20 19:15 Creatinine 0.87 mg/dl (0.6-1.2) 10/10/20 19:15 Est Cr Clr Drug Dosing 50.7 ml/min 10/10/20 19:15 Est GFR ( Amer) 71.9 ml/min 10/10/20 19:15 Est GFR (Non-Af Amer) 62.0 ml/min 10/10/20 19:15 BUN/Creatinine Ratio 19.2 (10-20) 10/10/20 19:15 Glucose 137 mg/dl (70-99) H 10/10/20 19:15 Calcium 9.2 mg/dl (8.5-10.1) 10/10/20 19:15 Magnesium 2.2 mg/dl (1.8-2.4) 10/10/20 19:15 Total Bilirubin 0.3 mg/dl (0.2-1) 10/10/20 19:15 AST 21 U/L (15-37) 10/10/20 19:15 ALT 23 U/L (12-78) 10/10/20 19:15 Alkaline Phosphatase 89 U/L (45-117) 10/10/20 19:15 Troponin I < 0.015 ng/ml (0-0.045) 10/10/20 19:15 NT-Pro-B Natriuret Pep 268 pg/ml (0-1800) 10/10/20 19:15 Total Protein 7.6 gm/dl (6.4-8.2) 10/10/20 19:15 Albumin 3.6 gm/dl (3.4-5.0) 10/10/20 19:15 Globulin 4.0 gm/dl (2.5-4.0) 10/10/20 19:15 Albumin/Globulin Ratio 0.9 (0.9-2) 10/10/20 19:15 Lipase 82 U/L (73-393) 10/10/20 19:15 TSH 2.730 uIu/ml (0.300-4.500) 10/10/20 19:15 Specimen Hemolysis 10/10/20 19:15 Urine Color Yellow 10/10/20 19:15 Urine Appearance Clear (Clear) 10/10/20 19:15 Urine pH 7.0 (4.5-7.5) 10/10/20 19:15 Ur Specific [place] 1.008 (1.000-1.030) 10/10/20 19:15 Urine Protein Negative (Negative) 10/10/20 19:15 Urine Glucose (UA) Negative (Negative) 10/10/20 19:15 Urine Ketones Negative (Negative) 10/10/20 19:15 Urine Blood Negative (Negative) 10/10/20 19:15 Urine Nitrite Negative (Negative) 10/10/20 19:15 Urine Bilirubin Negative (Negative) 10/10/20 19:15 Urine Urobilinogen Negative (Negative) 10/10/20 19:15 Ur Leukocyte Esterase 2+ (Negative) H 10/10/20 19:15 Urine WBC (Auto) 5-10 /hpf (0-5) H 10/10/20 19:15 Urine RBC (Auto) 0-4 /hpf (0-4) 10/10/20 19:15 U Hyaline Cast (Auto) 0 /lpf (0-5) 10/10/20 19:15 U Epithel Cells (Auto) 10-20 /lpf (0-5) H 10/10/20 19:15 Urine Bacteria (Auto) Negative (Negative) 10/10/20 19:15 Lyme Disease IgG Ab Negative (Negative) 10/10/20 19:15 Lyme Disease IgM Ab Negative (Negative) 10/10/20 19:15 COVID-19 Eval Order Covid19 at [facility] 10/10/20 21:00 SARS-CoV-2 (PCR) NEGATIVE (Negative) 10/10/20 21:00 Impressions Chest X-Ray 10/10/20 19:00 XR chest 1V portable CLINICAL HISTORY: dizzy COMPARISON STUDY: Chest radiograph August 09, 2013. FINDINGS: Lung volumes are normal. Minimal left basilar opacity favors atelectasis or scarring. There is no pneumothorax or pleural effusion. Cardiac size is normal. Mediastinal contours are normal. There is no evidence for pulmonary edema. IMPRESSION: No acute cardiopulmonary findings. Minimal left basilar opacity which favors atelectasis or scarring. ACT 112: Negative or not required by law. Electronically signed by: Bishnu Cortez M.D. 10/10/2020 7:[address] 10/10/20 19:00 CT OF THE HEAD WITHOUT CONTRAST CLINICAL HISTORY: dizzy, near syncope COMPARISON STUDY: Head CT December 15, 2019. CT DOSE: 537.48 mGy.cm TECHNIQUE: Helical axial images of the head were obtained without IV contrast. Automated exposure control was utilized for the study. A dose lowering technique was utilized adhering to the principles of ALARA. FINDINGS: No acute intracranial hemorrhage, midline shift or mass effect is present. The ventricular system is stable. There is bilateral basal ganglia calcification. White matter hypodensity suggests small vessel disease. The basal cisterns are patent. No extra-axial collections are present. There are no findings to suggest acute dural sinus thrombosis or acute territorial infarct. No significant calvarial abnormalities are present. Visualized portions of the sinuses and mastoid air cells are clear. IMPRESSION: No acute intracranial findings. No change in appearance of the brain. ACT 112: Negative or not required by law. Electronically signed by: Bishnu Cortez M.D. 10/10/2020 8:36 PM Code Status & VTE Plan Code Status Full code VTE Prophylaxis Plan VTE Prophylaxis will be ordered: Yes PG Care Time/CCT Total # of Minutes Spent Total Time Spent with Patient: Total time spent is greater than 50% in coordination of care (as documented) at patient's floor/unit and/or counseling patient: Coding Level of Care Code 69375 OBS Care - Level 3 Diagnoses Postural dizziness with near syncope R42; R55 PAF (paroxysmal atrial fibrillation) I48.0 Hypothyroidism E03.9 Hypothyroidism type: acquired Peripheral neuropathy G62.9 (1) Hypothyroidism Hypothyroidism type: acquired Qualified Code(s): E03.9 - Hypothyroidism, unspecified
[2020-10-11] MEDS ORDERED: ENOXAPARIN INJ 40 MG/0.4 ML SYR SQ SCH (06:00)
[2020-10-11] MEDS ORDERED: LEVOTHYROXINE SODIUM 100 MCG TABLET PO SCH (06:30)
[2020-10-11 06:33] LABS: Basophils # (auto) 0.02 K/uL (0-0.2); Basophils % (auto) 0.3 %; Eosinophils # (auto) 0.12 K/uL (0-0.5); Eosinophils % (auto) 1.9 %; Hematocrit (blood only) 38.7 % (37-47); Immature Granulocytes # (auto) 0.01 K/uL (0.00-0.02); Immature Granulocytes % (auto) 0.2 %; Lymphocytes # (auto) 1.55 K/uL (1.2-3.4); Mean Corpuscular Hemoglobin 30.7 pg (25-34); Mean Corpuscular Hgb Conc 33.6 g/dL (32-36); Mean Corpuscular Volume 91.3 fL (80-100); Mean Platelet Volume 10.2 fL (7.4-10.4); Monocytes # (auto) 0.71 K/uL (0.11-0.59); Neutrophils # (auto) 4.05 K/uL (1.4-6.5); Neutrophils % (auto) 62.6 %; Platelet Count 225 K/uL (130-400); RDW Coefficient of Variation 12.7 % (11.5-14.5); RDW Standard Deviation 42.1 fL (36.4-46.3); Red Blood Count 4.24 M/uL (4.2-5.4); White Blood Count 6.46 K/uL (4.8-10.8)
[2020-10-11 06:58] LABS: INR 1.1 (0.9-1.1); Partial Thromboplastin Time 26.6 Seconds (21.0-31.0); Prothrombin Time 10.9 Seconds (9.0-12.0)
[2020-10-11 07:10] LABS: Albumin Level 3.4 gm/dl (3.4-5.0); BUN Creatinine Ratio 19.7 (10-20); Calcium 8.2 mg/dl (8.5-10.1); Creatinine Clr Calc Pharmacy 59.7 ml/min; Est GFR (African American) 94.4 ml/min; Est GFR (Non-African American) 81.5 ml/min; Magnesium 2.3 mg/dl (1.8-2.4)
[2020-10-11 07:15] LABS: Bilirubin,Total 0.5 mg/dl (0.2-1); Globulin 3.5 gm/dl (2.5-4.0); Total Protein 6.9 gm/dl (6.4-8.2); Troponin I 0.016 ng/ml (0-0.045)
[2020-10-11] MEDS ORDERED: TRIAMCINOLONE ACET 0.1% CR 15 GM TUBE TOP SCH (09:00)
[2020-10-11] MEDS ORDERED: metroNIDAZOLE 0.75% TOPICAL GEL 45 GM TUBE TOP SCH (09:00)
[2020-10-11] MEDS ORDERED: ASPIRIN 81 MG ECTAB PO SCH (09:00)
--- NOTE | 2020-10-11 10:26 | XCELERA ---
[id number]
--- NOTE | 2020-10-11 12:08 | Cardiology Consultation ---
Date of Consultation October 11, 2020 Assessment & Plan (1) Near syncope: Her symptoms are likely related to her atrial arrhythmia. She reportedly had high ventricular rates at times. She did not actually suffered syncope. She did not have syncope with resolution of her symptoms. Echocardiography revealed preserved LV systolic function and structurally normal heart which puts her in a category patient is at low risk for malignant arrhythmias or more sinister causes of syncope. (2) Atrial tachycardia, paroxysmal: She was described as having atrial fibrillation, but the rhythm recorded on her EKG was not atrial fibrillation. She appeared to have frequent atrial ectopy and associated high ventricular rates. This certainly could be a precipitant of atrial fibrillation in the future. However, this particular arrhythmia does not require anticoagulation. The likelihood of recurrence is unclear. What is also unclear is the precipitant. She is otherwise healthy individual with a structurally normal heart. I suspect she will have recurr ences but the time frame in between episodes is unclear. I thought it would be reasonable to try low-dose beta-blockade not just for suppression but to see if this provides better heart rate control should she have recurrent episodes. I think she is safe for discharge. She recognizes her symptoms quite easily and takes appropriate precautions. She has not suffered actual syncope. I would like to see her back in the clinic and we can discuss any recurrent symptoms and her experience with metoprolol. History of Present Illness Reason for Consultation: Dizziness Requesting Physician: Albino Attending Physician: Darian Vazquez MD History of Present Illness The patient is an 80-year-old woman with a history of hypothyroidism but no cardiac disease who was feeling well yesterday until she began to experience symptoms of dizziness and lightheadedness. This was associated with a sense of a racing heartbeat. She did not endorse symptoms of chest discomfort or breathing difficulty, but the dizziness was quite severe at times and she felt somewhat presyncopal. The symptoms persisted despite changes in position, drinking are juice and eating a sandwich. The patient felt that she was unsafe to drive home and was sent to the emergency room for evaluation. She was found to have an irregular heart rhythm and advised to be admitted for observation. The patient's symptoms resolved shortly after transport out of the emergency room. Currently the patient is feeling well and anxious for discharge. She states that in general she is very active individual who takes care of [address] property. She has not report symptoms of limiting dyspnea or symptoms of chest discomfort. She generally does not have symptoms of dizziness or palpitations. She cannot recall another similar episode in the past. Allergies Allergy/AdvReac Type Severity Reaction Status Date / Time No Known Allergies Allergy Verified 10/10/20 19:22 Home Medications Medication Instructions Recorded Confirmed Type levothyroxine [Synthroid] 100 mcg PO QAM 10/10/20 10/10/20 History metronidazole 1 applic TOPICAL BID 10/10/20 10/10/20 History triamcinolone acetonide 1 applic TOPICAL DAILY 10/10/20 10/10/20 History metoprolol succinate 25 mg PO DAILY #30 tab 10/11/20 Rx Patient History Medical History Acute coronary syndrome H/O therapeutic radiation Hypothyroidism Peripheral neuropathy Seasonal allergies Surgical History H/O breast surgery Hx laparoscopic cholecystectomy (12/18/19) Laparoscopic cholecystectomy with lysis of adhesions. Dr. 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 Mood affect appear normal. She answered all questions appropriately. HEENT: Sclerae are anicteric. Pupils are equal and reactive to light and accommodation. Extraocular movements were intact. Neuro: Cranial nerves intact Neck: Examination of the submandibular region did not reveal any significant lymphadenopathy. Carotids are palpable bilaterally and free of bruits on auscultation. There was no evidence of jugular venous distention. The thyroid was not enlarged. Lungs: Lungs are clear to auscultation bilaterally. There are no rales wheezes or rhonchi. She has normal respiratory effort without use of accessory muscles. There is normal pulmonary excursion. Cardiac: The rhythm was regular. S1 and S2 were normal. There are no murmurs on examination. The PMI was not markedly displaced on palpation. Abdomen: The abdomen was soft and nontender. Extremities: Patient has bilateral radial pulses that are equal in intensity. There is no evidence cyanosis or clubbing. There was no evidence of significant peripheral edema bilaterally. Skin: There are no rashes noted on examination today. Results & Data ([facility]) Vital Signs (Past 12 Hours) Vital Signs Temp Pulse Pulse Pulse Resp BP Pulse Ox 10/11/20 07:52 70 10/11/20 07:14 36.7 C 59 L 20 148/73 H 97 10/11/20 04:08 36.7 C 73 20 134/73 98 10/11/20 00:04 64 10/10/20 23:49 36.7 C 62 20 136/91 97 Laboratory Results Abnormal Lab Results 10/10/20 10/10/20 10/10/20 19:15 19:15 19:15 WBC 7.16 RBC 4.34 Hgb 13.8 Hct 39.5 MCV 91.0 MCH 31.8 MCHC 34.9 RDW Std Deviation 41.8 RDW Coeff of Leeanne 12.4 Plt Count 260 MPV 10.3 Immature Gran % (Auto) 0.1 Neut % (Auto) 65.5 Lymph % (Auto) 22.5 [place] % (Auto) 9.9 Eos % (Auto) 1.7 Baso % (Auto) 0.3 Neut # (Auto) 4.69 Lymph # (Auto) 1.61 [place] # (Auto) 0.71 H Eos # (Auto) 0.12 Baso # (Auto) 0.02 Immature Gran # (Auto) 0.01 PT INR APTT PTT Ratio Sodium 136 Potassium 4.1 Chloride 102 Carbon Dioxide 26 Anion Gap 8.0 BUN 17 Creatinine 0.87 Est Cr Clr Drug Dosing 50.7 Est GFR ( Amer) 71.9 Est GFR (Non-Af Amer) 62.0 BUN/Creatinine Ratio 19.2 Glucose 137 H Calcium 9.2 Magnesium 2.2 Total Bilirubin 0.3 AST 21 ALT 23 Alkaline Phosphatase 89 Troponin I < 0.015 NT-Pro-B Natriuret Pep 268 Total Protein 7.6 Albumin 3.6 Globulin 4.0 Albumin/Globulin Ratio 0.9 Lipase 82 TSH 2.730 Specimen Hemolysis Urine Color Urine Appearance Urine pH Ur Specific [place] Urine Protein Urine Glucose (UA) Urine Ketones Urine Blood Urine Nitrite Urine Bilirubin Urine Urobilinogen Ur Leukocyte Esterase Urine WBC (Auto) Urine RBC (Auto) U Hyaline Cast (Auto) U Epithel Cells (Auto) Urine Bacteria (Auto) Lyme Disease IgG Ab Negative Lyme Disease IgM Ab Negative COVID-19 Eval Order SARS-CoV-2 (PCR) 10/10/20 10/10/20 10/10/20 19:15 21:00 21:00 WBC RBC Hgb Hct MCV MCH MCHC RDW Std Deviation RDW Coeff of Leeanne Plt Count MPV Immature Gran % (Auto) Neut % (Auto) Lymph % (Auto) [place] % (Auto) Eos % (Auto) Baso % (Auto) Neut # (Auto) Lymph # (Auto) [place] # (Auto) Eos # (Auto) Baso # (Auto) Immature Gran # (Auto) PT INR APTT PTT Ratio Sodium Potassium Chloride Carbon Dioxide Anion Gap BUN Creatinine Est Cr Clr Drug Dosing Est GFR ( Amer) Est GFR (Non-Af Amer) BUN/Creatinine Ratio Glucose Calcium Magnesium Total Bilirubin AST ALT Alkaline Phosphatase Troponin I NT-Pro-B Natriuret Pep Total Protein Albumin Globulin Albumin/Globulin Ratio Lipase TSH Specimen Hemolysis Urine Color Yellow Urine Appearance Clear Urine pH 7.0 Ur Specific [place] 1.008 Urine Protein Negative Urine Glucose (UA) Negative Urine Ketones Negative Urine Blood Negative Urine Nitrite Negative Urine Bilirubin Negative Urine Urobilinogen Negative Ur Leukocyte Esterase 2+ H Urine WBC (Auto) 5-10 H Urine RBC (Auto) 0-4 U Hyaline Cast (Auto) 0 U Epithel Cells (Auto) 10-20 H Urine Bacteria (Auto) Negative Lyme Disease IgG Ab Lyme Disease IgM Ab COVID-19 Eval Order Covid19 at [facility] SARS-CoV-2 (PCR) NEGATIVE 10/11/20 10/11/20 10/11/20 06:08 06:08 06:08 WBC 6.46 RBC 4.24 Hgb 13.0 Hct 38.7 MCV 91.3 MCH 30.7 MCHC 33.6 RDW Std Deviation 42.1 RDW Coeff of Leeanne 12.7 Plt Count 225 MPV 10.2 Immature Gran % (Auto) 0.2 Neut % (Auto) 62.6 Lymph % (Auto) 24.0 [place] % (Auto) 11.0 Eos % (Auto) 1.9 Baso % (Auto) 0.3 Neut # (Auto) 4.05 Lymph # (Auto) 1.55 [place] # (Auto) 0.71 H Eos # (Auto) 0.12 Baso # (Auto) 0.02 Immature Gran # (Auto) 0.01 PT 10.9 INR 1.1 APTT 26.6 PTT Ratio 1.0 Sodium 141 Potassium 4.0 Chloride 110 H Carbon Dioxide 29 Anion Gap 2.0 L BUN 13 Creatinine 0.68 Est Cr Clr Drug Dosing 59.7 Est GFR ( Amer) 94.4 Est GFR (Non-Af Amer) 81.5 BUN/Creatinine Ratio 19.7 Glucose 97 Calcium 8.2 L Magnesium 2.3 Total Bilirubin 0.5 AST 15 ALT 21 Alkaline Phosphatase 77 Troponin I 0.016 NT-Pro-B Natriuret Pep Total Protein 6.9 Albumin 3.4 Globulin 3.5 Albumin/Globulin Ratio 1.0 Lipase TSH Specimen Hemolysis Urine Color Urine Appearance Urine pH Ur Specific [place] Urine Protein Urine Glucose (UA) Urine Ketones Urine Blood Urine Nitrite Urine Bilirubin Urine Urobilinogen Ur Leukocyte Esterase Urine WBC (Auto) Urine RBC (Auto) U Hyaline Cast (Auto) U Epithel Cells (Auto) Urine Bacteria (Auto) Lyme Disease IgG Ab Lyme Disease IgM Ab COVID-19 Eval Order SARS-CoV-2 (PCR) Diagnostic Findings Echocardiogram performed today did not reveal any evidence of valvular heart disease. Preserved LV systolic function. Essentially normal. EKGs obtained yesterday revealed normal sinus rhythm as well as sinus rhythm with frequent and consecutive atrial ectopy. Chest x-ray obtained in the emergency room did not reveal any acute cardiopulmonary process. Head CT obtained in the emergency room did not reveal any intracranial abnormality. PG Care Time/CCT Total # of Minutes Spent Total Time Spent with Patient: Total time spent is greater than 50% in coordination of care (as documented) at patient's floor/unit and/or counseling patient: Coding Level of Care Code 16039 OBS Care - Level 3 Diagnoses Near syncope R55 Atrial tachycardia, paroxysmal I47.1
--- NOTE | 2020-10-11 12:09 | Discharge Summary ---
Date of Service October 11, 2020 Admission HPI Per Admitting Provider The patient is an 80-year-old female with a past medical history including sepsis, gallstone pancreatitis, acute cholecystitis, ascending cholangitis, syncope, hypothyroidism, peripheral neuropathy, and atypical chest pain. She reports that she was out shopping earlier in the day, and did have her usual breakfast and lunch. She was a lot going to a friend's place, she developed the symptoms as noted above, and was then brought to the emergency department for assessment. In the emergency department her symptoms had resolved and she was feeling completely back to her baseline. In the emergency department she was found to be in atrial fibrillation with RVR, and received Lopressor 5 mg IV, which then converted her to normal sinus rhythm. She did also receive 1 L normal saline in the ED. Principal Diagnosis Ectopic atrial rhythm Discharge Data Allergies Allergy/AdvReac Type Severity Reaction Status Date / Time No Known Allergies Allergy Verified 10/10/20 19:22 Consultations 10/10/20 23:54 Consult Cardiology Routine 10/11/20 01:14 ED Decision to Admit Stat Ordered Studies 10/10/20 19:00 CT head/brain wo con Stat Hospital Course (1) Near syncope: Her symptoms are likely related to her atrial arrhythmia. She reportedly had high ventricular rates at times. She did not actually suffered syncope. She did not have syncope with resolution of her symptoms. Echocardiography revealed preserved LV systolic function and structurally normal heart which puts her in a category patient is at low risk for malignant arrhythmias or more sinister causes of syncope. (2) Atrial tachycardia, paroxysmal: She was described as having atrial fibrillation, but the rhythm recorded on her EKG was not atrial fibrillation. She appeared to have frequent atrial ectopy and associated high ventricular rates. This certainly could be a p recipitant of atrial fibrillation in the future. However, this particular arrhythmia does not require anticoagulation. The likelihood of recurrence is unclear. What is also unclear is the precipitant. She is otherwise healthy individual with a structurally normal heart. I suspect she will have recurrences but the time frame in between episodes is unclear. I thought it would be reasonable to try low-dose beta-blockade not just for suppression but to see if this provides better heart rate control should she have recurrent episodes. I think she is safe for discharge. She recognizes her symptoms quite easily and takes appropriate precautions. She has not suffered actual syncope. I would like to see her back in the clinic and we can discuss any recurrent symptoms and her experience with metoprolol. Total Time Total Time Spent Total Time Spent (In Minutes): 60 Total Time Includes: Examination of the Patient, Discharge Planning and Medication Reconciliation Discharge Plan Discharge Items Patient Disposition: Home - Self-Care Reason For Visit: NEW ATRIAL FIB WITH RVR, NEAR SYNCOPE Discharge Diagnosis: Symptomatic atrial tachycardia Condition on Discharge: Good Activity: Resume your previous activity Bathing: No limitations Driving/Machine Use: No limitations Non-emergency contact: Pond Scaler Call non-emergency contact if: your symptoms worsen Follow-up/Referrals: Kayla Cheney MD [Primary Care Provider] - Diet: Regular Addtl Attending Provider Instructions: The cardiology office will call on Tuesday with a follow-up appointment. Pending Studies at Discharge: No Stand-Alone Forms: Narrable, Smoking Cessation Medications and DC Order Prescriptions: New metoprolol succinate 25 mg tablet extended release 24 hr 25 mg PO DAILY Qty: 30 RF: 3 Continued triamcinolone acetonide 0.1 % cream 1 applic TOPICAL DAILY RF: 0 metronidazole 0.75 % gel 1 applic TOPICAL BID RF: 0 levothyroxine [Synthroid] 100 mcg tablet 100 mcg PO QAM RF: 0 Discharge Orders: Discharge Order (Routine); Ordered 10/11/20 Ordered By: Vignesh Gallo Admission Data Admit Date/Time: 10/10/20 22:39 Attending Provider: Darian Vazquez Admit Provider: Yovanny Posada Primary Care Provider: Kayla Cheney Other Providers: Luis Daniel Tavarez ; Darian Vazquez Other Interventions: Discharge Summary Assessment (RN) Last Done: 10/11/20 10:43 Coding Level of Care Code 00056 OBS Care - Discharge Diagnoses Near syncope R55 Atrial tachycardia, paroxysmal I47.1
--- NOTE | 2020-10-11 16:26 | Electrocardiogram Report ---
Test Reason : Blood Pressure : / mmHG Vent. Rate : 086 BPM Atrial Rate : 086 BPM P-R Int : 184 ms QRS Dur : 082 ms QT Int : 350 ms P-R-T Axes : 059 -46 058 degrees QTc Int : 418 ms Normal sinus rhythm Left anterior fascicular block Moderate voltage criteria for LVH, may be normal variant Abnormal ECG When compared with ECG of 10-OCT-2020 18:52, (unconfirmed) Premature supraventricular complexes are no longer Present MS interval has decreased Confirmed by Catracho Gallo ([id number]) on 10/11/2020 4:26:11 PM Referred By: REFERRED SELF Confirmed By:Neftali Gallo
--- NOTE | 2020-10-11 16:42 | Electrocardiogram Report ---
Test Reason : Blood Pressure : / mmHG Vent. Rate : 106 BPM Atrial Rate : 131 BPM P-R Int : 216 ms QRS Dur : 082 ms QT Int : 294 ms P-R-T Axes : 059 -50 056 degrees QTc Int : 390 ms Sinus tachycardia with 1st degree A-V block with Premature supraventricular complexes Left axis deviation Minimal voltage criteria for LVH, may be normal variant Abnormal ECG When compared with ECG of 15-DEC-2019 15:11, Premature supraventricular complexes are now Present AR interval has increased Confirmed by Catracho Gallo ([id number]) on 10/11/2020 4:41:45 PM Referred By: REFERRED SELF Confirmed By:Neftali Gallo
== END 2020-10-11 11:25 | disposition home or self-care (01) ==
LOC: 2S 18:37 → ED 18:37 → SUATTDRO 22:39 → 2S 23:19
DX: I48.0 Paroxysmal atrial fibrillation; I47.1 Supraventricular tachycardia; R42 Dizziness and giddiness; Z79.899 Other long term (current) drug therapy

== ENCOUNTER 2023-06-08 17:15 | Inpatient (IN) ==
--- NOTE | 2023-06-08 17:26 | ED Triage Note ---
Date of Service June 08, 2023 Provider in Triage Author: Mariangel oPwell History of Present Illness This patient was briefly evaluated while in triage. An abbreviated physical exam was performed. This patient is a 82-year-old Female who presents to the ED for evaluation via EMS not feeling well "I'm miserable", anorexia, fatigue x couple weeks drinking lots of liquids saw her PCP on 06/02 for the same, had blood work done - had "too much vitamin D' Physical Exam GENERAL: NAD CARDIOVASCULAR: RRR RESPIRATORY: CTA ABDOMEN: BS x 4. Nontender to palpation. Initial orders for labs and / or imaging were placed and patient was placed in the waiting area until a bed is available. Please see further documentation for the full ED course.
--- NOTE | 2023-06-08 17:58 | XRay Report ---
XR chest 1V not portable CLINICAL HISTORY: Fatigue. Weakness. COMPARISON STUDY: Chest radiograph April 08, 2022. FINDINGS: Lung volumes are normal. Moderate right lower lung airspace opacity is present. There is mi nimal left basilar opacity. There is no pneumothorax or pleural effusion. Cardiac size is normal. Med iastinal contours are normal. There is no evidence for pulmonary edema. Pneumobilia is incidentally n oted. IMPRESSION: Moderate right lower lung airspace opacity which favors pneumonia. Post treatment radiog raphs to ensure resolution are recommended. ACT 112: Negative or not required by law. Electronically signed by: Bishnu Cortez M.D. 06/08/2023 5:57 PM
[2023-06-08 18:58] LABS: Hematocrit (blood only) 43.3 % (37.0-47.0); Hemoglobin 14.8 g/dl (12.0-16.0); Mean Corpuscular Hemoglobin 30.6 pg (25.0-34.0); Mean Corpuscular Hgb Conc 34.2 g/dL (32.0-36.0); Mean Corpuscular Volume 89.6 fL (80.0-100.0); Mean Platelet Volume 11.1 fL (9.4-12.4); Platelet Count 178 K/uL (130-400); RDW Coefficient of Variation 12.9 % (11.5-14.5); RDW Standard Deviation 42.7 fL (36.4-46.3); Red Blood Count 4.83 M/uL (4.20-5.40); White Blood Count 4.95 K/ul (4.8-10.8)
[2023-06-08 19:11] LABS: Alanine Aminotransferase 37 U/L (7-52); Albumin Globulin Ratio 1.1 (0.9-2); Albumin Level 3.9 gm/dl (3.4-5.0); Alkaline Phosphatase 48 U/L (34-104); Anion Gap 10 (3-11); Aspartate Aminotransferase 57 U/L (13-39); BUN Creatinine Ratio 24.4 (10-20); Bilirubin,Total 1.2 mg/dl (0.2-1.0); Blood Urea Nitrogen 21 mg/dl (6-23); Calcium 8.6 mg/dl (8.6-10.3); Carbon Dioxide 25 mmol/L (21-32); Chloride 104 mmol/L (98-107); Est GFR (African American) 71.9 ml/min; Globulin 3.6 gm/dl (2.5-4.0); Glucose 138 mg/dl (70-99(Fasting)); Potassium 3.8 mmol/L (3.5-5.1); Sodium 139 mmol/L (136-145); Total Protein 7.5 gm/dl (6.0-8.3)
[2023-06-08 19:17] LABS: Troponin I High Sensitivity 12.8 pg/ml (0-14)
[2023-06-08 19:21] LABS: Basophils # (auto) 0.01 K/uL (0.00-0.20); Basophils % (auto) 0.2 %; Eosinophils # (auto) 0.01 K/uL (0.00-0.50); Eosinophils % (auto) 0.2 %; Immature Granulocytes # (auto) 0.02 K/uL (0.01-0.20); Immature Granulocytes % (auto) 0.4 %; Lymphocytes # (auto) 0.81 K/uL (1.20-3.40); Lymphocytes % (auto) 16.4 %; Monocytes # (auto) 0.67 K/uL (0.11-0.59); Monocytes % (auto) 13.5 %; Neutrophils # (auto) 3.43 K/uL (1.40-6.50); Neutrophils % (auto) 69.3 %
[2023-06-08 19:26] LABS: Thyroid Stimulating Hormone 1.164 uIu/ml (0.300-4.500)
[2023-06-08 19:32] LABS: Lyme Ab IgG w/WB Rflx Negative (Negative); Lyme Ab IgM w/WB Rflx Negative (Negative)
[2023-06-08] MEDS ORDERED: SODIUM CHLORIDE 0.9% 1,000 ML IV ONE (19:42)
[2023-06-08] MEDS ORDERED: cefTRIAXone SODIUM 2,000 MG/50 ML BAG IV STA (19:55)
--- NOTE | 2023-06-08 20:10 | Emergency Department Note ---
Impression & Plan Weakness, Pneumonia, Dehydration, COVID-19 ED Provider Note NAME: DOUGLAS CAST AGE: 82 SEX: F : 1940 ARRIVES VIA: Ambulance INFORMANT: [Patient] ED PROVIDER(S): [Dudley Booker MD] CHIEF COMPLAINT: Weakness HISTORY OF PRESENT ILLNESS: The patient is an 82-year-old female who states that she has had at least a week of symptoms. She felt poorly and just was thirsty and sleeping all the time. She was weak and really not able to do much other than stay in bed. She was able to see her doctor's office 5 days ago and had some lab work done. She was told that her vitamin D level was high but everything else was okay. The patient has persisted with increasing weakness to the point where she called the ambulance today. She lives alone and cannot function the way she is feeling. No fever, no cough. No chills. She has not felt short of breath. No chest pain or abdominal pain, no vomiting, no urinary complaints. She states she is just thirsty and weak. PMHx/PSHx/Social Hx: See Below PHYSICAL EXAM: GENERAL: Patient is in no acute distress. HEENT: No acute trauma, normocephalic atraumatic, mucous membranes dry, no nasal congestion. NECK: No stridor, no adenopathy, no meningismus, trachea is midline. LUNGS: Occasional crackles heard at the right lower lung base. No wheezing or respiratory distress. HEART: Without murmurs gallops or rubs, regular rate and rhythm. ABDOMEN: Soft, nontender, no peritonitis. EXTREMITIES: No cyanosis, full range of motion of all the joints without pain or difficulty. NEUROLOGIC: Oriented x 3, no acute motor or sensory deficits, no focal weakness. SKIN: No jaundice, no diaphoresis. DIFFERENTIAL DIAGNOSIS: Pneumonia, dehydration, electrolyte imbalance, UTI, viral illness, anemia, cardiac ischemia, among others. EMERGENCY DEPARTMENT PROCEDURES: MEDICAL DECISION MAKING: There is no leukocytosis or concerning anemia. There is a normal platelet count. No renal failure or significant electrolyte abnormality. There were some subtle liver enzyme elevations possibly consistent with some dehydration. ECG showed a sinus rhythm with LVH, no acute ischemia. Cardiac enzyme testing x 1 is not consistent with acute cardiac injury. Anaplasmosis and Babesia smears were negative. Lyme disease testing was negative. COVID test returned positive. Influenza and RSV test were negative. Chest film does show a right lung pneumonia. On exam, the patient complained of weakness. She appeared dehydrated. The patient received IV saline, 1 L. She was given IV ceftriaxone as empiric antibiotic coverage. I do think the patient requires a hospital stay. She is weak, she lives alone and is not able to function on her own right now. She appears dehydrated. She has pneumonia and COVID-19. I spoke with the patient and case management, the on-call hospitalist was consulted. Prior/Outside records/notes reviewed: Primary care note from 06/03/2023 discussing her complaints of dry mouth and fatigue and the plan moving forward. ECG per my interpretation: Indication was weakness. The ECG shows a normal sinus rhythm with a rate of 89. LVH is present. There is no acute ST elevation. No PVCs but the QTc is 457. Continuous Cardiac Monitoring per my interpretation: An order was placed for continuous cardiac monitoring. The monitor shows a rate of 81 with normal sinus rhythm. Imaging/x-ray results per my interpretation: Chest x-ray shows a right lower lung pneumonia. No CHF. Chronic Medical/Social conditions affecting care: Advanced age, lives alone. Care/Management discussed with: Case management and the on-call hospitalist. Level of care consideration(s): After review of the information above and other included data: --I believe the patient requires escalation of care to admission DISPOSITION: Admission Past Med/Surg History Medical History Cerumen impaction Osteomyelitis of toe Right foot pain Pressure ulcer of right foot, stage 3 Right foot ulcer Status post placement of implantable loop recorder Lassitude Postural dizziness with near syncope Near syncope Left ear pain Sepsis Gallstone pancreatitis DVT prophylaxis Nausea & vomiting Syncope Cholelithiasis Abdominal discomfort Atypical chest pain (08/09/13) Breast cancer Acute pancreatitis Ascending cholangitis Acute cholecystitis H/O therapeutic radiation Seasonal allergies Peripheral neuropathy Hypothyroidism Acute coronary syndrome Surgical History Hx laparoscopic cholecystectomy (12/18/19) Laparoscopic cholecystectomy with lysis of adhesions. Dr. Mcpherson 12/18/2019 H/O breast surgery Family History Mother Myocardial infarction Other No pertinent family history Denies family history of Ovarian cancer Prostate cancer Breast cancer Colorectal cancer Social History Smoking Status: Unknown if ever smoked Second Hand Exposure: No; Do You Dip or Chew Tobacco: No; Hx Alcohol Use: No Hx Substance Use: No Preferred Language: Icelandic Communication Ability: Effective Visual Impairment: Limited Hearing Ability: Normal Investments Manager Required: No Beliefs That Will Affect Care: None marital status: Single Current Living Situation: Alone current occupational status: retired How many Children do You have: 0 Feels Safe at Home: Yes Diet: regular during the past year weight has: remained stable Dental Care, Regularly: Yes Physical Activity Frequency: 3-4 Times per Week Seatbelt Use: always Sunscreen Use: Yes Gender Identity: Female Assistive Devices: None Allergies Allergies Allergy/AdvReac Type Severity Reaction Status Date / Time No Known Allergies Allergy Verified 06/08/23 20:15 Home Meds Home Medications Medication Instructions Recorded Confirmed omega 8-shu-zak-fish oil 1,000 mg 1 cap PO DAILY 06/08/23 06/08/23 (120 mg-180 mg) capsule (Fish Oil) Previous Rx's Medication Instructions Recorded levothyroxine 100 mcg tablet 100 mcg PO QAM #90 tabs 04/25/23 (Synthroid) mecobalamin (vitamin B12) 1,000 1,000 mcg PO DAILY #90 tabs 06/03/23 mcg chewable tablet Results & Data (ED) Vital Signs Vital Signs - 24 hr 06/08/23 17:22 06/08/23 19:39 06/08/23 19:40 Temperature 36.8 C Temperature Source Temporal Artery Scan Pulse Rate 91 H 81 72 Pulse Rate from SpO2 Sensor 68 Respiratory Rate 16 27 H Respiratory Effort / Characteristics Non-Labored Spontaneous Respiratory Depth Normal Respiratory Pattern Regular Blood Pressure 103/75 132/70 Blood Pressure Mean 84 90 Pulse Oximetry 92 93 Oxygen Delivery Method Room Air Sepsis Recent Fever Within 48 Hours No Sepsis New/Unexplained Change in Mental Status N/A Sepsis Action Taken by Nursing No Action Required 06/08/23 20:00 06/08/23 20:08 Temperature Temperature Source Pulse Rate 80 Pulse Rate from SpO2 Sensor 77 Respiratory Rate 20 Respiratory Effort / Characteristics Respiratory Depth Respiratory Pattern Blood Pressure 111/69 Blood Pressure Mean 83 Pulse Oximetry 96 Oxygen Delivery Method Room Air Sepsis Recent Fever Within 48 Hours Sepsis New/Unexplained Change in Mental Status Sepsis Action Taken by [facility] Medications Current Medication List: was personally reviewed by me Laboratory Data Attestation: I reviewed the patient's lab results. 06/08/23 18:33 06/08/23 18:33 Lab Results 06/08/23 06/08/23 Range/Units 18:33 20:10 WBC 4.95 (4.8-10.8) K/ul RBC 4.83 (4.20-5.40) M/uL Hgb 14.8 (12.0-16.0) g/dl Hct 43.3 (37.0-47.0) % MCV 89.6 (80.0-100.0) fL MCH 30.6 (25.0-34.0) pg MCHC 34.2 (32.0-36.0) g/dL RDW Std Deviation 42.7 (36.4-46.3) fL RDW Coeff of Leeanne 12.9 (11.5-14.5) % Plt Count 178 (130-400) K/uL MPV 11.1 (9.4-12.4) fL Immature Gran % (Auto) 0.4 % Neut % (Auto) 69.3 % Lymph % (Auto) 16.4 % Brantley % (Auto) 13.5 % Eos % (Auto) 0.2 % Baso % (Auto) 0.2 % Neut # (Auto) 3.43 (1.40-6.50) K/uL Lymph # (Auto) 0.81 L (1.20-3.40) K/uL Brantley # (Auto) 0.67 H (0.11-0.59) K/uL Eos # (Auto) 0.01 (0.00-0.50) K/uL Baso # (Auto) 0.01 (0.00-0.20) K/uL Immature Gran # (Auto) 0.02 (0.01-0.20) K/uL Sodium 139 (136-145) mmol/L Potassium 3.8 (3.5-5.1) mmol/L Chloride 104 (98-107) mmol/L Carbon Dioxide 25 (21-32) mmol/L Anion Gap 10 (3-11) BUN 21 (6-23) mg/dl Creatinine 0.86 (0.6-1.2) mg/dl Est Cr Clr Drug Dosing Not Reportable Est GFR ( Amer) 71.9 ml/min Est GFR (Non-Af Amer) 62.0 ml/min BUN/Creatinine Ratio 24.4 H (10-20) Glucose 138 H (70-99(Fasting)) mg/dl Calcium 8.6 (8.6-10.3) mg/dl Total Bilirubin 1.2 H (0.2-1.0) mg/dl AST 57 H (13-39) U/L ALT 37 (7-52) U/L Alkaline Phosphatase 48 (34-104) U/L Troponin I High Sens 12.8 (0-14) pg/ml Total Protein 7.5 (6.0-8.3) gm/dl Albumin 3.9 (3.4-5.0) gm/dl Globulin 3.6 (2.5-4.0) gm/dl Albumin/Globulin Ratio 1.1 (0.9-2) TSH 1.164 (0.300-4.500) uIu/ml Anaplasma Smear See Comment Babesia Smear See Comment Lyme Disease IgG Ab Negative (Negative) Lyme Disease IgM Ab Negative (Negative) SARS-CoV-2 (PCR) POSITIVE A* (Negative) Influenza Type A (PCR) Negative (Neg) Influenza Type B (PCR) Negative (Neg) RSV (RT-PCR) Negative (Neg) Administered Medications Discontinued Medications Sodium Chloride (Nss) 1,000 mls @ 999 mls/hr IV .Q1H1M ONE Stop: 06/08/23 20:42 Last Infusion: 06/08/23 22:34 Dose: Infused Documented By: Admin: 06/08/23 20:10 Dose: 999 mls/hr Documented By: NGOC Ceftriaxone Sodium (Rocephin) 2,000 mg in 50 mls @ 100 mls/hr IV NOW STA Stop: 06/08/23 20:24 Last Infusion: 06/08/23 22:34 Dose: Infused Documented By: Admin: 06/08/23 21:51 Dose: 100 mls/hr Documented By: NGOC Imaging Data Radiologist's Impression: Chest X-Ray 06/08/23 17:26 XR chest 1V not portable CLINICAL HISTORY: Fatigue. Weakness. COMPARISON STUDY: Chest radiograph April 08, 2022. FINDINGS: Lung volumes are normal. Moderate right lower lung airspace opacity is present. There is minimal left basilar opacity. There is no pneumothorax or pleural effusion. Cardiac size is normal. Mediastinal contours are normal. There is no evidence for pulmonary edema. Pneumobilia is incidentally noted. IMPRESSION: Moderate right lower lung airspace opacity which favors pneumonia. Post treatment radiographs to ensure resolution are recommended. ACT 112: Negative or not required by law. Electronically signed by: Bishnu Cortez M.D. 06/08/2023 5:57 PM Discharge Plan Visit Data Chief Complaint: Illness ED Provider: Dudley Booker Discharge Problem: Weakness, Pneumonia, Dehydration, COVID-19 Patient Disposition: Admitted As Inpatient Condition: Fair Discharge Problem: Pneumonia Qualifiers: Pneumonia type: due to unspecified organism Laterality: right Lung location: u nspecified part of lung Qualified Code(s): J18.9 - Pneumonia, unspecified organism
--- NOTE | 2023-06-08 20:23 | History & Physical Report ---
Date of Service June 08, 2023 Assessment & Plan (1) Generalized weakness: Plan: -Admit to med/surge on pulse oximetry -Currently hemodynamically stable, stable on RA, and non-toxic appearing -Presented to the ED on 06/08 with 3 weeks of generalized weakness and decreased appetite -Patient denies fever, chills, significant weight loss, GI symptoms, urinary symptoms, recent medication changes besides stopping vitamin D, or depressive symptoms -CBC is essential WNL besides a leukopenia, her total bili of 1.2 and AST of 57 could be due to dehydration but can't rule out tick borne illness -At this time the only possible source of her generalized weakness appears to be the possible RLL pneumonia and possible tick borne illness with her -Will obtain procal and CT of the chest wo con for further evaluation -S/P 1L NSS and a dose of Ceftriaxone in the ED -Will continue ceftriaxone and add azithromycin for atypical coverage for now -Will continue light Plasmalyte overnight for dehydration -Incentive spirometry, flutter therapy -PT/OT consults placed -Regular diet -SQ Lovenox for DVT PPX -AM CBC, CMP (2) Pneumonia: Plan: -Will follow procal and CT chest -Continue ceftriaxone and azithromycin -Continue pulmonary hygiene (3) Dehydration: Plan: -Continue IV hydration for now -Continue to stress the importance of drinking water (4) Hypothyroidism: Plan: -TSH WNL -Continue levothyroxine Plan The patient was discussed with Dr. Posada at the time of the admission History of Present Illness Chief Complaint: Generalized weakness, dehydration Primary Care Provider: DO Olena Sandoval is an 82 year old female with a PMH significant for hypothyroidism, paroxysmal atrial tachycardia, and B12 deficiency who presented to the [facility] ED on 06/08 with complaints on progressive generalized weakness and dehydration. She remained stable in the ED. Labs were significant for a lymphocyte count of 0.81, total bili of 1.2, AST of 57. Chest xray was read as "Moderate right lower lung airspace opacity which favors pneumonia. Post treatment radiographs to ensure resolution are recommended. ". Prior to admission the patient was given one dose of Ceftriaxone. At the time of the exam the patient was sitting in bed in no acute distress. She states that she normally is a very healthy person with lots of energy. Over the past 3 weeks she has been much more fatigued with decreased appetite. She has been sleeping "day and night". She has mainly been drinking [place] Juice and Pepsi over this time and has not been drinking water as she does not like plain water. When asked, she denies feeling down, depressed, anhedonia, suicidal or homicidal ideations. She denies recent medication changes besides stopping her Vitamin D supplement recently as her vitamin D level on 06/03 was elevated. She denies recent fever, chills, chest pain, SOB, abd pain, nausea, vomiting, diarrhea, dysuria, hematuria, melena, LE swelling, and recent trauma. When asked about cough she states that she has had a non-productive cough over the past 3 weeks as well. We discussed code status, she states that she is a DNR/DNI. Please refer to Dr. Posada's attestation for any changes to the treatment plan Allergies Allergy/AdvReac Type Severity Reaction Status Date / Time No Known Allergies Allergy Verified 06/08/23 20:15 Home Medications Medication Instructions Recorded Confirmed Type levothyroxine 100 mcg tablet 100 mcg PO QAM #90 tabs 04/25/23 06/08/23 Rx (Synthroid) mecobalamin (vitamin B12) 1,000 1,000 mcg PO DAILY #90 tabs 06/03/23 06/08/23 Rx mcg chewable tablet omega 1-rce-ewv-fish oil 1,000 mg 1 cap PO DAILY 06/08/23 06/08/23 History (120 mg-180 mg) capsule (Fish Oil) Past Med/Surg History Medical History Cerumen impaction Osteomyelitis of toe Right foot pain Pressure ulcer of right foot, stage 3 Right foot ulcer Status post placement of implantable loop recorder Lassitude Postural dizziness with near syncope Near syncope Left ear pain Sepsis Gallstone pancreatitis DVT prophylaxis Nausea & vomiting Syncope Cholelithiasis Abdominal discomfort Atypical chest pain (08/09/13) Breast cancer Acute pancreatitis Ascending cholangitis Acute cholecystitis H/O therapeutic radiation Seasonal allergies Peripheral neuropathy Hypothyroidism Acute coronary syndrome Surgical History Hx laparoscopic cholecystectomy (12/18/19) Laparoscopic cholecystectomy with lysis of adhesions. Dr. Mcpherson 12/18/2019 H/O breast surgery Family History Mother Myocardial infarction Other No pertinent family history Denies family history of Ovarian cancer Prostate cancer Breast cancer Colorectal cancer Social History Smoking Status: Unknown if ever smoked Second Hand Exposure: No; Do You Dip or Chew Tobacco: No; Hx Alcohol Use: No Hx Substance Use: No Preferred Language: Mauritian Communication Ability: Effective Visual Impairment: Limited Hearing Ability: Normal First Aid Officer Required: No Beliefs That Will Affect Care: None marital status: Single Current Living Situation: Alone current occupational status: retired How many Children do You have: 0 Feels Safe at Home: Yes Diet: regular during the past year weight has: remained stable Dental Care, Regularly: Yes Physical Activity Frequency: 3-4 Times per Week Seatbelt Use: always Sunscreen Use: Yes Gender Identity: Female Assistive Devices: None Physical Exam Physical Exam: Physical Exam: General: In no acute distress, stated age, well-nourished, non-toxic appearing HEENT: Normocephalic, atraumatic, no scleral icterus, pupils around round, symmetrical, and reactive to light, dry mucus membranes, trachea midline, no thyromegaly Chest/Pulm: No respiratory distress, symmetrical chest expansion, rhonchi noted in the RLL otherwise clear breath sounds throughout Cardiac: RRR, no murmurs noted Abdomen: Negative for ascites and bruising, normoactive bowel sounds, soft, non-tender to palpation throughout Musculoskeletal: Symmetrical and without signs of acute trauma, upper and lower extremities with full ROM, no atrophy, spasticity, or flaccidity Extremities: Radial, dorsalis pedis, and posterior tibial pulses are intact and symmetrical, no edema noted in the BL LE's Skin: Warm, dry, no rashes , lesions, or scars noted Neuro: Alert and oriented to person, place, month, year, and president, no focal defects, no tremors noted Psych: No acute distress, calm and cooperative during the exam Results & Data Results & Data Vital Signs (Past 12 Hours) Vital Signs Temp Pulse Resp BP Pulse Ox O2 Del Method 06/08/23 20:08 Room Air 06/08/23 19:39 81 06/08/23 17:22 36.8 C 91 H 16 103/75 92 Room Air Laboratory Results Abnormal lab results 06/08/23 Range/Units 18:33 Lymph # (Auto) 0.81 L (1.20-3.40) K/uL [place] # (Auto) 0.67 H (0.11-0.59) K/uL BUN/Creatinine Ratio 24.4 H (10-20) Glucose 138 H (70-99(Fasting)) mg/dl Total Bilirubin 1.2 H (0.2-1.0) mg/dl AST 57 H (13-39) U/L Diagnostic Findings Chest X-Ray 06/08/23 17:26 XR chest 1V not portable CLINICAL HISTORY: Fatigue. Weakness. COMPARISON STUDY: Chest radiograph April 08, 2022. FINDINGS: Lung volumes are normal. Moderate right lower lung airspace opacity is present. There is minimal left basilar opacity. There is no pneumothorax or pleural effusion. Cardiac size is normal. Mediastinal contours are normal. There is no evidence for pulmonary edema. Pneumobilia is incidentally noted. IMPRESSION: Moderate right lower lung airspace opacity which favors pneumonia. Post treatment radiographs to ensure resolution are recommended. ACT 112: Negative or not required by law. Electronically signed by: Bishnu Cortez M.D. 06/08/2023 5:57 PM ECG Additional Comments: Normal sinus rhythm Left anterior fascicular block Moderate voltage criteria for LVH, may be normal variant ( R in aVL , Ricardo product ) Abnormal ECG When compared with ECG of 08-APR-2022 16:20, [place] interval has decreased Code Status & VTE Plan Code Status DNR/DNI VTE Prophylaxis Plan VTE Prophylaxis will be ordered: Yes Supervising Physician Co-Signing Physician Notes Attending addendum: I have physically seen this patient, have supervised the SANTIAGO's activities, and agree with the H&P unless as otherwise noted. Assessment and Plan: Right lower lobe pneumonia/COVID-19 infection- Ceftriaxone 2 g IV daily Azithromycin 500 mg IV daily Dexamethasone 6 mg IV daily Since symptoms began 3 weeks ago, will hold on remdesivir Lovenox subcu for DVT prophylaxis Albuterol HFA 2 puffs 4 times daily, and every 2 hours as needed Guaifenesin extended release 60 mg p.o. twice daily COVID-19 precautions Generalized weakness- Treat infection as above PT/OT consult prior to discharge PG Care Time/CCT Total # of Minutes Spent Total Time Spent with Patient: Total time spent is greater than 50% in coordination of care (as documented) at patient's floor/unit and/or counseling patient: [place] [address] INT INP/OBS CARE 2/55MIN Patient Type Established Medical Decision Making Moderate Complexity Diagnoses Generalized weakness R53.1 Pneumonia J18.9 Dehydration E86.0 Acquired hypothyroidism E03.9 Hypothyroidism type: acquired (4) Hypothyroidism Hypothyroidism type: acquired Qualified Code(s): E03.9 - Hypothyroidism, unspecified
[2023-06-08 21:07] LABS: Influenza A virus by PCR Negative (Neg); Influenza B virus by PCR Negative (Neg); RSV by PCR Negative (Neg)
--- NOTE | 2023-06-08 21:19 | CT Scan Report ---
Exam(s): CT CHEST Without Contrast EXAM: CT Chest Without Intravenous Contrast CLINICAL HISTORY: Reason for exam: possible right lower lobe PNA on CXR. TECHNIQUE: Axial computed tomography images of the chest without intravenous contrast. CTDI is 10.96 mGy and DLP is 353.21 mGy-cm. Automated exposure control was utilized for the study. A dose lowering technique was utilized adhering to the principles of ALARA. COMPARISON: None FINDINGS: Lungs: Patchy groundglass opacities and consolidations in the right lower lobe. Patchy groundglass opacities in the right upper lobe and left lower lobe. Findings are concerning for an infectious/inflammatory process. Pleural space: Unremarkable. No pneumothorax. No significant effusion. Heart: Unremarkable. No cardiomegaly. No significant pericardial effusion. No significant coronary artery calcifications. Mediastinum: Small amount of ingested material in the esophagus. Bones/joints: Degenerative changes of the spine. Probably chronic compression deformity of T7. No dislocation. Soft tissues: Unremarkable. Vasculature: Atherosclerotic changes of the aorta. No aortic aneurysm. Lymph nodes: Unremarkable. No enlarged lymph nodes. Gallbladder and bile ducts: Probable pneumobilia partially visualized. IMPRESSION: 1. Patchy groundglass opacities and consolidations in the right lower lobe. Patchy groundglass opacities in the right upper lobe and left lower lobe. Findings are concerning for an infectious/inflammatory process. 2. Small amount of ingested material in the esophagus. 3. Probable pneumobilia partially visualized. Electronically signed by: Ward Tucker M.D. 06/08/23 21:18 PM
[2023-06-08 21:33] LABS: SARS CoV2 RNA(COVID-19) Ceph POSITIVE (Negative)
[2023-06-08] MEDS ORDERED: ACETAMINOPHEN 325 MG TAB PO PRN (21:40)
[2023-06-08] MEDS ORDERED: AZITHROMYCIN 500 MG in DEXTROSE 5% 250 ML IV STA (21:43)
--- NOTE | 2023-06-09 00:11 | Ultrasound Report ---
Exam(s): US LIVER EXAM: US Abdomen Limited CLINICAL HISTORY: Reason for exam: decreased appetite, pneumobilia on CT chest. TECHNIQUE: Real-time ultrasound of the abdomen with image documentation. COMPARISON: No relevant prior studies available. FINDINGS: Gallbladder: Gallbladder surgically absent. Common bile duct: Pneumobilia. Pancreas: Nonvisualization of the pancreas secondary to overlying bowel gas. Kidneys: Right kidney measures 11.8 cm. 3.2 x 2.5 x 3.7 cm right renal cyst. No follow-up of this simple cyst is necessary. Other findings: Present:. IMPRESSION: No acute findings in the visualized abdomen. Electronically signed by: Taran Hair MD 06/09/23 00:10 AM
[2023-06-09] MEDS: PLASMA-LYTE A 1,000 ML IV SCH ×2 (01:53→12:02)
[2023-06-09 02:17] LABS: Appearance Urine Clear (Clear); Bacteria Urine Automated Negative (Negative); Blood Urine Negative (Negative); Color Urine Dark Yellow; Epithelial Cell Urine Auto >30 /lpf (0-5); Glucose Urine UA Negative (Negative); Ketones Urine Trace (Negative); Leukocyte Esterase Urine 1+ (Negative); Nitrite Urine Negative (Negative); Protein Urine 2+ (Negative); Specific Gravity Urine 1.027 (1.000-1.030); Urobilinogen Urine Negative (Negative)
[2023-06-09 02:24] LABS: Bilirubin Urine 1+ (Negative)
[2023-06-09 04:09] LABS: Hematocrit (blood only) 34.8 % (37.0-47.0); Hemoglobin 11.7 g/dl (12.0-16.0); Mean Corpuscular Hemoglobin 30.2 pg (25.0-34.0); Mean Corpuscular Hgb Conc 33.6 g/dL (32.0-36.0); Mean Corpuscular Volume 89.7 fL (80.0-100.0); Mean Platelet Volume 10.8 fL (9.4-12.4); Platelet Count 141 K/uL (130-400); RDW Coefficient of Variation 12.9 % (11.5-14.5); RDW Standard Deviation 42.5 fL (36.4-46.3); Red Blood Count 3.88 M/uL (4.20-5.40); White Blood Count 3.55 K/ul (4.8-10.8)
[2023-06-09 04:15] LABS: Albumin Globulin Ratio 1.1 (0.9-2); Albumin Level 3.1 gm/dl (3.4-5.0); BUN Creatinine Ratio 27.7 (10-20); Bilirubin,Total 0.7 mg/dl (0.2-1.0); Calcium 7.4 mg/dl (8.6-10.3); Est GFR (African American) 94.5 ml/min; Est GFR (Non-African American) 81.5 ml/min; Globulin 2.9 gm/dl (2.5-4.0); Potassium 3.4 mmol/L (3.5-5.1)
[2023-06-09 04:24] LABS: Basophils # (auto) 0.01 K/uL (0.00-0.20); Basophils % (auto) 0.3 %; Eosinophils # (auto) 0.02 K/uL (0.00-0.50); Eosinophils % (auto) 0.6 %; Immature Granulocytes # (auto) 0.02 K/uL (0.01-0.20); Immature Granulocytes % (auto) 0.6 %; Lymphocytes # (auto) 1.08 K/uL (1.20-3.40); Lymphocytes % (auto) 30.4 %; Monocytes # (auto) 0.49 K/uL (0.11-0.59); Monocytes % (auto) 13.8 %; Neutrophils # (auto) 1.93 K/uL (1.40-6.50); Neutrophils % (auto) 54.3 %
[2023-06-09] MEDS: ALBUTEROL HFA 8 GM INHALER INH SCH ×4 (08:16→18:48)
[2023-06-09] MEDS: dexAMETHasone 6 MG in SYRINGE 0 ML IV SCH ×2 (08:16→08:19)
[2023-06-09] MEDS: ENOXAPARIN INJ 40 MG/0.4 ML SYR SQ SCH (08:17)
[2023-06-09] MEDS ORDERED: POTASSIUM CHLORIDE CRTAB 20 MEQ TABCR PO ONE (08:17)
[2023-06-09] MEDS: CYANOCOBALAMIN (B-12) 500 MCG TABLET PO SCH (08:17)
[2023-06-09] MEDS: LEVOTHYROXINE SODIUM 100 MCG TABLET PO SCH (08:17)
[2023-06-09] MEDS: guaiFENesin 600 MG TABCR PO SCH ×2 (08:17→20:43)
[2023-06-09] MEDS: methylPREDNISolone 40 MG in SYRINGE 0 ML IV SCH ×2 (09:04→16:34)
[2023-06-09] MEDS: CHOLECALCIFEROL 5,000 UNITS 125 MCG TAB PO SCH (11:25)
--- NOTE | 2023-06-09 12:46 | Electrocardiogram Report ---
Test Reason : Blood Pressure : / mmHG Vent. Rate : 089 BPM Atrial Rate : 089 BPM P-R Int : 158 ms QRS Dur : 078 ms QT Int : 376 ms P-R-T Axes : 059 -50 055 degrees QTc Int : 457 ms Normal sinus rhythm Left anterior fascicular block Left ventricular hypertrophy with repolarization abnormality Abnormal ECG When compared with ECG of 08-APR-2022 16:20, [place] interval has decreased Confirmed by Yuri Blount ([id number]) on 06/09/2023 12:46:18 PM Referred By: REFERRED SELF Confirmed By:Yuri Blount
--- NOTE | 2023-06-09 15:13 | Hospitalist Progress Note ---
Date of Service June 09, 2023 Assessment & Plan (1) Generalized weakness: Plan: Supportive care. OT and PT assessments will be requested when appropriate. (2) Pneumonia: Plan: Suspected on admission. Bilateral groundglass opacity seen on CT scan. Viral etiology is a possibility. Will discontinue Rocephin and azithromycin tomorrow if possible, June 10. This probably represents a viral etiology. (3) Dehydration: Plan: Present on admission. Mild. Continue IV fluids for now (4) Hypothyroidism: Plan: Stable. Continue levothyroxine Plan Hopeful discharge to home soon Admission and Anticipated Discharge Date Admission Date: June 08, 2023 Subjective Alert and oriented. No distress. She has a viral illness and nasal swab positive for COVID. Parenteral steroid therapy and vitamin D are indicated. Potassium replacement underway. OT and PT assessments requested. Will discontinue Rocephin and azithromycin probably tomorrow, June 10. Review of Systems 2 Review of Systems: Upwassnzgnijea-tzi-ztzlz fever at home intermittently. No chills ENT-no blurred vision, no double vision, no epistaxis, no sore throat Respiratory-no cough, no wheezing, no shortness of breath Cardiac-no palpitations, no chest pain, no syncope GI-no nausea, vomiting, diarrhea, melena, hematochezia. Loss of appetite -no urinary retention, no urinary incontinence, no dysuria, no hematuria Musculoskeletal-no joint pain, no muscle tenderness Skin-no bruising, no rashes, no pruritus Neuro-generalized weakness. No focal deficits Psych-no depression, no anxiety Physical Exam 2 Physical Exam: General-alert and oriented x3, no fever, no chills HEENT-head atraumatic and normocephalic, pupils equal and reactive to light, extraocular muscles intact Neck-no lymphadenopathy or thyromegaly, trachea midline Chest-clear to auscultation. No rales, wheezing or rhonchi Cardiac-regular rate and rhythm, normal S1 and S2 Abdomen-normal bowel sounds, nontender, no hepatosplenomegaly Extremities-no cyanosis, clubbing, or edema Neuro-cranial nerves II through XII intact, motor and sensory function within normal limits, strength symmetrical with generalized weakness, no focal deficits Psych-normal affect, normal mood Results & Data Results & Data Vital Signs (Past 12 Hours) Vital Signs Temp Pulse Pulse Resp BP Pulse Ox Pulse Ox 06/09/23 07:54 06/09/23 07:54 36.7 C 74 20 105/69 96 06/09/23 07:30 06/09/23 07:30 36.8 C 75 20 110/60 98 06/09/23 07:30 98 06/09/23 07:11 73 O2 Del Method O2 Del Method 06/09/23 07:54 Room Air 06/09/23 07:54 Room Air 06/09/23 07:30 Room Air 06/09/23 07:30 Room Air 06/09/23 07:30 Room Air 06/09/23 07:11 Laboratory Results 06/09/23 03:32 06/09/23 03:32 PG Care Time/CCT Total # of Minutes Spent Total Time Spent with Patient: Total time spent is greater than 50% in coordination of care (as documented) at patient's floor/unit and/or counseling patient: Coding Level of Care Code 55353 SUB INP/OBS CARE 3/50MIN Diagnoses Generalized weakness R53.1 Pneumonia J18.9 Dehydration E86.0 Acquired hypothyroidism E03.9 Hypothyroidism type: acquired (4) Hypothyroidism Hypothyroidism type: acquired Qualified Code(s): E03.9 - Hypothyroidism, unspecified
[2023-06-09] MEDS ORDERED: cefTRIAXone SODIUM 2,000 MG in DEXTROSE 5 % MINI-B 50 ML IV SCH (21:00)
[2023-06-09] MEDS ORDERED: AZITHROMYCIN 500 MG in DEXTROSE 5% 250 ML IV SCH (22:00)
[2023-06-10] MEDS: methylPREDNISolone 40 MG in SYRINGE 0 ML IV SCH ×2 (00:34→08:17)
[2023-06-10 04:07] LABS: Hematocrit (blood only) 35.5 % (37.0-47.0); Hemoglobin 12.4 g/dl (12.0-16.0); Mean Corpuscular Hemoglobin 30.2 pg (25.0-34.0); Mean Corpuscular Hgb Conc 34.9 g/dL (32.0-36.0); Mean Corpuscular Volume 86.6 fL (80.0-100.0); Mean Platelet Volume 11.3 fL (9.4-12.4); Platelet Count 167 K/uL (130-400); RDW Coefficient of Variation 12.5 % (11.5-14.5); RDW Standard Deviation 39.8 fL (36.4-46.3); White Blood Count 4.18 K/ul (4.8-10.8)
[2023-06-10 04:29] LABS: Calcium 8.3 mg/dl (8.6-10.3); Potassium 3.7 mmol/L (3.5-5.1)
[2023-06-10 04:35] LABS: BUN Creatinine Ratio 24.5 (10-20); Creatinine Clr Calc Pharmacy 77.3 ml/min; Est GFR (African American) 101.1 ml/min; Est GFR (Non-African American) 87.2 ml/min
[2023-06-10 04:45] LABS: Basophils # (auto) 0.01 K/uL (0.00-0.20); Basophils % (auto) 0.2 %; Echinocytes 1+; Immature Granulocytes # (auto) 0.03 K/uL (0.01-0.20); Immature Granulocytes % (auto) 0.7 %; Lymphocytes # (auto) 0.63 K/uL (1.20-3.40); Lymphocytes % (auto) 15.1 %; Monocytes # (auto) 0.22 K/uL (0.11-0.59); Monocytes % (auto) 5.3 %; Neutrophils # (auto) 3.29 K/uL (1.40-6.50); Neutrophils % (auto) 78.7 %
[2023-06-10] MEDS: LEVOTHYROXINE SODIUM 100 MCG TABLET PO SCH (06:34)
[2023-06-10] MEDS: ALBUTEROL HFA 8 GM INHALER INH SCH (07:00)
[2023-06-10] MEDS: CHOLECALCIFEROL 5,000 UNITS 125 MCG TAB PO SCH (08:18)
[2023-06-10] MEDS: guaiFENesin 600 MG TABCR PO SCH (08:18)
[2023-06-10] MEDS: CYANOCOBALAMIN (B-12) 500 MCG TABLET PO SCH (08:19)
[2023-06-10] MEDS: ENOXAPARIN INJ 40 MG/0.4 ML SYR SQ SCH (08:20)
--- NOTE | 2023-06-10 09:12 | Discharge Summary ---
Date of Service June 10, 2023 Admission HPI Per Admitting Provider Olena is an 82 year old female with a PMH significant for hypothyroidism, paroxysmal atrial tachycardia, and B12 deficiency who presented to the [facility] ED on 06/08 with complaints on progressive generalized weakness and dehydration. She remained stable in the ED. Labs were significant for a lymphocyte count of 0.81, total bili of 1.2, AST of 57. Chest xray was read as "Moderate right lower lung airspace opacity which favors pneumonia. Post treatment radiographs to ensure resolution are recommended. ". Prior to admission the patient was given one dose of Ceftriaxone. At the time of the exam the patient was sitting in bed in no acute distress. She states that she normally is a very healthy person with lots of energy. Over the past 3 weeks she has been much more fatigued with decreased appetite. She has been sleeping "day and night". She has mainly been drinking [place] Juice and Pepsi over this time and has not been drinking water as she does not like plain water. When asked, she denies feeling down, depressed, anhedonia, suicidal or homicidal ideations. She denies recent medication changes besides stopping her Vitamin D supplement recently as her vitamin D level on 06/03 was elevated. She denies recent fever, chills, chest pain, SOB, abd pain, nausea, vomiting, diarrhea, dysuria, hematuria, melena, LE swelling, and recent trauma. When asked about cough she states that she has had a non-productive cough over the past 3 weeks as well. We discussed code status, she states that she is a DNR/DNI. Please refer to Dr. Posada's attestation for any changes to the treatment plan Principal Diagnosis COVID positivity by nasal swab, suspected viral pneumonia with bilateral groundglass opacities, generalized weakness, hypokalemia Discharge Exam General-alert and oriented x3, no fever, no chills HEENT-head atraumatic and normocephalic, pupils equal and reactive to light, extraocular muscles intact Neck-no lymphadenopathy or thyromegaly, trachea midline Chest-clear to auscultation. No rales, wheezing or rhonchi Cardiac-regular rate and rhythm, normal S1 and S2 Abdomen-normal bowel sounds, nontender, no hepatosplenomegaly Extremities-no cyanosis, clubbing, or edema Neuro-cranial nerves II through XII intact, motor and sensory function within normal limits, strength symmetrical with generalized weakness, no focal deficits Psych-normal affect, normal mood Discharge Data Allergies Allergy/AdvReac Type Severity Reaction Status Date / Time No Known Allergies Allergy Verified 06/08/23 20:15 Consultations 06/08/23 20:04 ED Decision to Admit Stat Ordered Studies 06/08/23 20:43 CT chest diagnostic wo con Urgent 06/08/23 21:33 US RUQ [US liver] Urgent Hospital Course (1) Generalized weakness: Supportive care. She appears to be back to her baseline after fluid hydration. OT and PT assessments completed and they both recommend discharge to home (2) Pneumonia: Suspected on admission. Bilateral groundglass opacity seen on CT scan. Viral etiology is suspected . Antibiotics have been discontinued. She is on room air (3) Dehydration: Resolved with IV fluid resuscitation (4) Hypothyroidism: Stable. Continue levothyroxine Plan Home today, June 10 Total Time Total Time Spent Total Time Spent (In Minutes): 45 minutes Discharge Plan Discharge Items Patient Disposition: Home - Self-Care Reason For Visit: GENERALIZED WEAKNESS Discharge Diagnosis: Viral illness with suspected viral pneumonia, COVID positivity by nasal swab, generalized weakness, hypokalemia Condition on Discharge: Good Activity: Resume your previous activity Non-emergency contact: Primary Care Provider Call non-emergency contact if: you have any medication questions and your symptoms worsen Follow-up/Referrals: Moses Haro DO [Primary Care Provider] - Diet: Regular Addtl Attending Provider Instructions: Home medications remain the same Pending Studies at Discharge: No Stand-Alone Forms: My [facility] [employer], Smoking Cessation Medications and DC Order Prescriptions: Continued levothyroxine [Synthroid] 100 mcg tablet 100 mcg PO QAM Qty: 90 3RF mecobalamin (vitamin B12) 1,000 mcg tablet,chewable 1,000 mcg PO DAILY Qty: 90 3RF omega 6-idg-mem-fish oil [Fish Oil] 1,000 mg (120 mg-180 mg) Capsule 1 cap PO DAILY Discharge Orders: Discharge Order (Routine); Ordered 06/10/23 Ordered By: Jareth Ricketts Admission Data Admit Date/Time: 06/08/23 20:27 Attending Provider: Jareth Ricketts Admit Provider: Yovanny Posada Primary Care Provider: Moses Haro Other Providers: Yovanny Posada Coding Level of Care Code 86842 INP/OBS DISCH >30 MIN Diagnoses Generalized weakness R53.1 Pneumonia J18.9 Dehydration E86.0 Acquired hypothyroidism E03.9 Hypothyroidism type: acquired
[2023-06-13 23:12] LABS: Babesia microti DNA Not Detected (Not Detected)
== END 2023-06-10 10:30 | disposition home or self-care (01) | DRG 193 ==
LOC: ED 17:15 → SUATTDRO 20:27 → EDINP 20:27

== ENCOUNTER 2024-12-24 07:43 | Inpatient (IN) ==
[2024-12-24] MEDS: SODIUM CHLORIDE 0.9% 1,000 ML IV STA (08:03)
[2024-12-24 08:14] LABS: Hematocrit (blood only) 42.6 % (37.0-47.0); Hemoglobin 14.6 g/dl (12.0-16.0); Immature Granulocytes # (auto) 0.07 K/uL (0.01-0.20); Immature Granulocytes % (auto) 0.5 %; Mean Corpuscular Hemoglobin 30.5 pg (25.0-34.0); Mean Corpuscular Volume 88.9 fL (80.0-100.0); Platelet Count 261 K/uL (130-400); RDW Standard Deviation 40.3 fL (36.4-46.3); Red Blood Count 4.79 M/uL (4.20-5.40); White Blood Count 13.52 K/ul (4.8-10.8)
--- NOTE | 2024-12-24 08:26 | Emergency Department Note ---
Impression & Plan Nausea and vomiting, Elevated troponin ED Provider Note NAME: DOUGLAS CAST AGE: 84 SEX: F : 1940 ARRIVES VIA: Ambulance INFORMANT: Patient, ED PROVIDER(S): Troy Ku MD CHIEF COMPLAINT: Nausea, vomiting HPI: This is a 84-year-old female presenting for nausea vomiting. Patient states that yesterday afternoon she began having vomiting after meals. She has no evidence tolerate much food as result of this. Whenever she does eat she vomits right back up. She reports no abdominal pain, no fevers, chills. She reports no history of this in the past. No chest pain or shortness of breath associated. She states she is feeling weak due to not eating and the persistent nausea and vomiting. She has had a previous cholecystectomy in her life. ROS: See above HPI for pertinent positives & negatives. A total of 10 systems reviewed and were otherwise negative. PAST MEDICAL HISTORY: See Below PAST SURGICAL HISTORY: See Below FAMILY HISTORY: See Below SOCIAL HISTORY: See Below HOME MEDICATIONS: See Below ALLERGIES: See Below VITALS: See Below PHYSICAL EXAMINATION: General: resting comfortably in no acute distress Head: Normocephalic and atraumatic Eyes: Normal inspection, extraocular muscles intact Ear, nose, throat: Normal external exam Neck: Normal range of motion Respiratory: lungs clear to auscultation bilaterally Cardiovascular: Regular rate/rhythm, no murmur GI: soft, nontender, no guarding or rebound Extremities: nontender, moves all extremities Neuro: The patient awake and alert, appropriately conversive, no focal deficits, symmetric faces Skin: Warm, dry, and intact MEDICAL DECISION MAKING: This is an 84-year-old female presenting for nausea and vomiting. Patient soft nontender abdomen. Will do CT abdomen/pelvis to assess for small bowel obstruction due to persistent nausea and vomiting. Could be gastroenteritis, UTI, pancreatitis, diverticulitis, volvulus. - Leukocytosis to 13.52 was noted. Otherwise no severe electrolyte disturbances. Troponin elevated at 31.7. Second value uptrending at 40.3 - CT imaging reveals no acute findings at this time. -ECG independently interpreted by me with normal sinus rhythm rate of 68, left anterior fascicular block, prolonged QT, no ST segment elevations consistent with STEMI criteria -Due to patient's uptrending troponin with nausea vomiting, will admit the patient for further workup. -Care discussed with [facility] hospitalist group for admission Differential diagnosis: ACS, SBO, volvulus, pancreatitis, UTI, gastroenteritis Diagnostics interpreted by me: ECG: See above Cardiac Monitoring: An order was placed for continuous cardiac monitoring. The monitor shows a rate of 75 with sinus rhythm. Past Med/Surg History Problem List (Updated 12/25/24 @ 15:13 by Tory Ku MD) Elevated troponin (Acute) Nausea and vomiting (Acute) Elevated troponin Eustachian tube disorder Abnormal mammogram of right breast Osteoporosis COVID-19 (Acute) Pneumonia (Acute) Weakness (Acute) Dehydration Generalized weakness Abnormal liver enzymes Poor appetite Vitamin B12 deficiency High vitamin D level Dry mouth Tinnitus Anxiety Insomnia Increased thirst Hx laparoscopic cholecystectomy (12/18/19) Laparoscopic cholecystectomy with lysis of adhesions. Dr. Mcpherson 12/18/2019 Elevated LFTs (Acute) Leukocytosis (Acute) Fatigue Hypothyroidism (Chronic) Peripheral neuropathy (Chronic) Seasonal allergies (Acute) Medical History Atrial tachycardia, paroxysmal Cerumen impaction Osteomyelitis of toe Right foot pain Pressure ulcer of right foot, stage 3 Right foot ulcer Status post placement of implantable loop recorder Lassitude Postural dizziness with near syncope Near syncope Left ear pain Sepsis Gallstone pancreatitis DVT prophylaxis Nausea & vomiting Syncope Cholelithiasis Abdominal discomfort Atypical chest pain (08/09/13) Breast cancer Acute pancreatitis Ascending cholangitis Acute cholecystitis H/O therapeutic radiation Acute coronary syndrome Surgical History H/O breast surgery Family History Mother Myocardial infarction Other No pertinent family history Denies family history of Ovarian cancer Prostate cancer Breast cancer Colorectal cancer Social History Smoking Status: Never smoker Second Hand Exposure: No; Do You Dip or Chew Tobacco: No; Hx Alcohol Use: No Hx Substance Use: No Preferred Language: Icelandic Communication Ability: Effective Visual Impairment: Limited Hearing Ability: Normal 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 marital status: Single Current Living Situation: Alone current occupational status: retired How many Children do You have: 0 Feels Safe at Home: Yes Childhood Exposure to Second-Hand Smoke: No Diet: regular caffeine: Yes during the past year weight has: remained stable Dental Care, Regularly: Yes Physical Activity Frequency: 3-4 Times per Week Seatbelt Use: always Sunscreen Use: Yes Do you think of yourself as: straight/heterosexual Sexual Activity: has been sexually active, but not for at least 12 months Gender Identity: Female Assistive Devices: Denture - Upper, Denture - Lower and Glasses Allergies Allergies Allergy/AdvReac Type Severity Reaction Status Date / Time No Known Allergies Allergy Verified 12/24/24 11:17 Home Meds Home Medications Medication Instructions Recorded Confirmed omega 6-bfl-aio-fish oil 1,000 mg 1 cap PO DAILY 06/08/23 12/24/24 (120 mg-180 mg) capsule (Fish Oil) Previous Rx's Medication Instructions Recorded mecobalamin (vitamin B12) 1,000 1,000 mcg PO DAILY #90 tabs 06/03/23 mcg chewable tablet levothyroxine 112 mcg tablet 112 mcg PO DAILY #90 tabs 10/23/24 Results & Data (ED) Vital Signs Vital Signs - 24 hr 12/24/24 07:49 12/24/24 07:54 12/24/24 08:16 Temperature 36.9 C Temperature Source Oral Pulse Rate 70 70 69 Pulse Rate [Apical] Pulse Rhythm Regular Respiratory Rate 16 16 Respiratory Effort / Characteristics Non-Labored Spontaneous Respiratory Depth Normal Blood Pressure 144/91 H Blood Pressure [Left Arm] Blood Pressure Mean 108 Blood Pressure Mean [Left Arm] Pulse Oximetry 95 95 Oxygen Delivery Method Room Air Room Air Sepsis Recent Fever Within 48 Hours No Sepsis New/Unexplained Change in Mental Status No Sepsis Action Taken by Nursing No Action Required 12/24/24 09:00 Temperature Temperature Source Pulse Rate Pulse Rate [Apical] 78 Pulse Rhythm Respiratory Rate 16 Respiratory Effort / Characteristics Non-Labored Spontaneous Respiratory Depth Normal Blood Pressure Blood Pressure [Left Arm] 140/80 Blood Pressure Mean Blood Pressure Mean [Left Arm] 100 Pulse Oximetry 96 Oxygen Delivery Method Room Air Sepsis Recent Fever Within 48 Hours Sepsis New/Unexplained Change in Mental Status Sepsis Action Taken by Nursing Laboratory Data 12/24/24 07:55 12/25/24 07:25 Lab Results 12/24/24 12/24/24 12/24/24 Range/Units 07:55 09:46 10:00 WBC 13.52 H (4.8-10.8) K/ul RBC 4.79 (4.20-5.40) M/uL Hgb 14.6 (12.0-16.0) g/dl Hct 42.6 (37.0-47.0) % MCV 88.9 (80.0-100.0) fL MCH 30.5 (25.0-34.0) pg MCHC 34.3 (32.0-36.0) g/dL RDW Std Deviation 40.3 (36.4-46.3) fL RDW Coeff of Leeanne 12.4 (11.5-14.5) % Plt Count 261 (130-400) K/uL MPV 10.1 (9.4-12.4) fL Immature Gran % (Auto) 0.5 % Neut % (Auto) 81.2 % Lymph % (Auto) 11.0 % Wilkin % (Auto) 6.9 % Eos % (Auto) 0.1 % Baso % (Auto) 0.3 % Neut # (Auto) 10.97 H (1.40-6.50) K/uL Lymph # (Auto) 1.49 (1.20-3.40) K/uL Wilkin # (Auto) 0.93 H (0.11-0.59) K/uL Eos # (Auto) 0.02 (0.00-0.50) K/uL Baso # (Auto) 0.04 (0.00-0.20) K/uL Immature Gran # (Auto) 0.07 (0.01-0.20) K/uL Sodium 138 (136-145) mmol/L Potassium 3.6 (3.5-5.1) mmol/L Chloride 100 (98-107) mmol/L Carbon Dioxide 27 (21-32) mmol/L Anion Gap 11 (3-11) BUN 22 (6-23) mg/dl Creatinine 0.74 (0.6-1.2) mg/dl Est Cr Clr Drug Dosing 51.1 ml/min eGFR 78.74 BUN/Creatinine Ratio 29.7 H (10-20) Glucose 154 H (70-99(Fasting)) mg/dl Calcium 9.4 (8.6-10.3) mg/dl Magnesium 2.1 (1.7-2.4) mg/dl Total Bilirubin 0.9 (0.2-1.0) mg/dl AST 26 (13-39) U/L ALT 27 (7-52) U/L Alkaline Phosphatase 43 (34-104) U/L Troponin I High Sens 31.7 H 40.3 H (0-14) pg/ml Total Protein 7.5 (6.0-8.3) gm/dl Albumin 4.4 (3.4-5.0) gm/dl Globulin 3.1 (2.5-4.0) gm/dl Albumin/Globulin Ratio 1.4 (0.9-2) Lipase 9 L (11-82) U/L TSH 1.533 (0.300-4.500) uIu/ml Urine Color Yellow Urine Appearance Clear (Clear) Urine pH 7.5 (4.5-7.5) Ur Specific [place] 1.026 (1.000-1.030) Urine Protein Trace H (Negative) Urine Glucose (UA) Negative (Negative) Urine Ketones Negative (Negative) Urine Blood Negative (Negative) Urine Nitrite Negative (Negative) Urine Bilirubin Negative (Negative) Urine Urobilinogen Negative (Negative) Ur Leukocyte Esterase Trace H (Negative) Urine WBC (Auto) 0-5 (0-5) /hpf Urine RBC (Auto) 0-2 (0-2) /hpf U Hyaline Cast (Auto) 0-2 (0-2) /lpf U Epithel Cells (Auto) 0-2 (0-2) /hpf Urine Bacteria (Auto) None Seen (None Seen) Urine Comment Administered Medications Discontinued Medications Sodium Chloride (Nss) 1,000 mls @ 999 mls/hr IV .Q1H1M STA Stop: 12/24/24 08:54 Last Infusion: 12/24/24 10:27 Dose: Infused Documented By: Admin: 12/24/24 08:03 Dose: 999 mls/hr Documented By: LYNDON Pantoprazole Sodium (Protonix) 40 mg in 10 mls @ 5 mls/min IV BID JOSE ELIAS Stop: 01/23/25 20:59 Last Admin: 12/25/24 09:21 Dose: 5 mls/min Documented By: PEDRO LUIS Admin: 12/24/24 20:16 Dose: 5 mls/min Documented By: HNT Pantoprazole Sodium (Protonix) 40 mg in 10 mls @ 5 mls/min IV NOW ONE Stop: 12/24/24 10:57 Last Admin: 12/24/24 11:06 Dose: 5 mls/min Documented By: ANT Lactated Ringer's (Lr) 1,000 mls @ 125 mls/hr IV .Q8H JOSE ELIAS Stop: 12/27/24 10:59 Last Infusion: 12/25/24 11:19 Dose: Infused Documented By: Admin: 12/25/24 03:06 Dose: 125 mls/hr Documented By: Infusion: 12/25/24 03:06 Dose: Infused Documented By: Admin: 12/24/24 19:21 Dose: 125 mls/hr Documented By: Infusion: 12/24/24 19:07 Dose: Infused Documented By: Admin: 12/24/24 11:07 Dose: 125 mls/hr Documented By: ANT Ioversol (Optiray 320 100ml) 94 ml IV ONCE ONE Stop: 12/24/24 09:18 Last Admin: 12/24/24 09:17 Dose: 94 ml Documented By: SHANEKA Levothyroxine Sodium (Levothyroxine Sodium 112 Mcg Tablet) 112 mcg PO DAILYBB JOSE ELIAS Stop: 01/24/25 08:09 Last Admin: 12/25/24 09:32 Dose: 112 mcg Documented By: PEDRO LUIS Ondansetron HCl (Ondansetron Inj 2 Mg/Ml 2 Ml Vial) 4 mg IV NOW STA Stop: 12/24/24 08:22 Last Admin: 12/24/24 08:41 Dose: 4 mg Documented By: LYNDON Imaging Data Radiologist's Impression: Abdomen/Pelvis CT 12/24/24 08:[address] WITH IV CONTRAST CT DOSE: 971.07 mGy.cm HISTORY: SBO, N/V, hx alexander TECHNIQUE: Multiaxial CT images of the abdomen and pelvis were performed following the IV administration of 90 cc of Optiray, A dose lowering technique was utilized adhering to the principles of ALARA. COMPARISON STUDY: 12/15/2019 FINDINGS: ABDOMEN: Stable mild fatty liver. Gallbladder is surgically absent. There is interval small amount of biliary gas consistent with interval papillotomy. The prior biliary dilatation has resolved. Spleen, pancreas, and adrenal glands are unremarkable. There are a few cysts at the kidneys, largest at the right lower kidney measures 4 cm. There is no hydronephrosis. There are scattered atherosclerotic calcifications. No abdominal aortic aneurysm. Pelvis: Uterus and adnexa are grossly unremarkable. Urinary bladder is mildly distended, otherwise unremarkable. There is extensive sigmoid diverticulosis. No acute diverticulitis. Normal appendix. No bowel inflammation or obstruction. No free fluid, free air, or abscess. No enlarged adenopathy. Osseous structures: There is severe lower lumbar degenerative disc disease. There is grade 1 anterolisthesis of L3 on 4, L4 and 5, and L5 on S1, stable. There are mild degenerative changes at the hips. IMPRESSION: No acute findings. Otherwise as described. ACT 112: Negative or not required by law. The above report was generated using voice recognition software. It may contain grammatical, syntax or spelling errors. Electronically signed by: Chan Toscano M.D. 12/24/2024 9:39 AM Discharge Plan Visit Data Chief Complaint: Vomiting Stated Complaint: DIZZY, VOMITING, UNABLE TO AMBULATE ED Provider: Tory Ku Discharge Problem: Nausea and vomiting, Elevated troponin Patient Disposition: Admitted As Inpatient Condition: Fair Discharge Instructions Interventions: ED Discharge Assessment Last Done: 12/24/24 14:32 Discharge Problem: Nausea and vomiting Qualifiers: Vomiting type: unspecified Qualified Code(s): R11.2 - Nausea with vomiting, unspecified
[2024-12-24 08:32] LABS: Alanine Aminotransferase 27.0 U/L (7-52); Albumin Globulin Ratio 1.4 (0.9-2); Alkaline Phosphatase 43.0 U/L (34-104); Anion Gap 11.0 (3-11); Bilirubin,Total 0.9 mg/dl (0.2-1.0); Blood Urea Nitrogen 22.0 mg/dl (6-23); Calcium 9.4 mg/dl (8.6-10.3); Carbon Dioxide 27.0 mmol/L (21-32); Chloride 100.0 mmol/L (98-107); Creatinine Clr Calc Pharmacy 51.1 ml/min; Globulin 3.1 gm/dl (2.5-4.0); Glucose 154.0 mg/dl (70-99(Fasting)); Lipase 9.0 U/L (11-82); Potassium 3.6 mmol/L (3.5-5.1); Sodium 138.0 mmol/L (136-145); Total Protein 7.5 gm/dl (6.0-8.3)
[2024-12-24] MEDS: ONDANSETRON INJ 2 MG/ML 2 ML VIAL IV STA (08:41)
[2024-12-24] MEDS: OPTIRAY 320 100ml IV ONE (09:17)
--- NOTE | 2024-12-24 09:41 | CT Scan Report ---
ABDOMEN AND PELVIS CT WITH IV CONTRAST CT DOSE: 971.07 mGy.cm HISTORY: SBO, N/V, hx alexander TECHNIQUE: Multiaxial CT images of the abdomen and pelvis were performed following the IV administrat ion of 90 cc of Optiray, A dose lowering technique was utilized adhering to the principles of ALARA. COMPARISON STUDY: 12/15/2019 FINDINGS: ABDOMEN: Stable mild fatty liver. Gallbladder is surgically absent. There is interval small amount of biliary gas consistent with interval papillotomy. The prior biliary dilatation has resolved. Spleen, pancreas, and adrenal glands are unremarkable. There are a few cysts at the kidneys, largest at the right lower kidney measures 4 cm. There is no hydronephrosis. There are scattered atherosclerotic isidro cifications. No abdominal aortic aneurysm. Pelvis: Uterus and adnexa are grossly unremarkable. Urinary bladder is mildly distended, otherwise un remarkable. There is extensive sigmoid diverticulosis. No acute diverticulitis. Normal appendix. No b owel inflammation or obstruction. No free fluid, free air, or abscess. No enlarged adenopathy. Osseous structures: There is severe lower lumbar degenerative disc disease. There is grade 1 anteroli sthesis of L3 on 4, L4 and 5, and L5 on S1, stable. There are mild degenerative changes at the hips. IMPRESSION: No acute findings. Otherwise as described. ACT 112: Negative or not required by law. The above report was generated using voice recognition software. It may contain grammatical, syntax o r spelling errors. Electronically signed by: Chan Toscano M.D. 12/24/2024 9:39 AM
[2024-12-24 10:49] LABS: Appearance Urine Clear (Clear); Bacteria Urine Automated None Seen (None Seen); Cast Urine Automated 0-2 /lpf (0-2); Epithelial Cell Urine Auto 0-2 /hpf (0-2); Glucose Urine UA Negative (Negative); RBC Urine Automated 0-2 /hpf (0-2); WBC Urine Automated 0-5 /hpf (0-5)
[2024-12-24] MEDS ORDERED: ONDANSETRON INJ 2 MG/ML 2 ML VIAL IV PRN (10:55)
--- NOTE | 2024-12-24 10:59 | History & Physical Report ---
Date of Service December 24, 2024 Assessment & Plan (1) Nausea & vomiting: (2) Elevated troponin: (3) Weakness: Plan This is an 84 year old female with past medical history of hypothyroidism who presented to the ED on 12/24/2024 with chief complaints of vomiting. While in the ED she was found to have mild leukocytosis of 13.52. Her CTAP was negative for any acute pathologies related to her symptoms. She was given IVF and IV Zofran with improvement of symptoms. #Nausea/vomiting given abrupt onset seems gastroenteritis in nature. CTAP negative for acute pathology CBC w/ mildly elevated leukocytosis of 13.52 --> abx deferred on admission given more viral presentation BMP w/ stable renal function & electrolytes, mag stable. IV PPI BID Zofran PRN Clear liquid diet, advance as tolerated. PT/OT consulted for weakness. #Elevated troponin without chest pain EKG without ischemic changes Troponin trend: 31.7--> 40.3 --> 43.4, continue to trend until starts to downtrend. likely demand secondary to viral illness. #Hypothyroidism TSH WNL Continue Levothyroxine DVT prophylaxis: encourage ambulation, SCD's Code: DNR/DNI Case was discussed with Dr. Carr at time of admission. History of Present Illness Primary Care Provider: Moses Haro, This is an 84 year old female with past medical history of hypothyroidism who presented to the ED on 12/24/2024 with chief complaints of vomiting. Olena was seen and examined this morning. She states that yesterday evening after eating dinner she started to throw up multiple times. She states that this caused her to become weak as well. She denies any hematemesis. Denies any indigestion type symptoms. States her last bowel movement was yesterday morning & she doesn't have any diarrhea. She denies fevers, chills, chest pain. Denies any abdominal pain. SHe states that the last time she did have N/V was in EMS on the way to the ER. While in the ED she was found to have mild leukocytosis of 13.52. Her CTAP was negative for any acute pathologies related to her symptoms. She was given IVF and IV Zofran with improvement of symptoms. Code discussion did take place and she is a DNR/DNI Allergies Allergy/AdvReac Type Severity Reaction Status Date / Time No Known Allergies Allergy Verified 12/24/24 11:17 Home Medications Medication Instructions Recorded Confirmed Type mecobalamin (vitamin B12) 1,000 1,000 mcg PO DAILY #90 tabs 06/03/23 12/24/24 Rx mcg chewable tablet omega 9-gme-dic-fish oil 1,000 mg 1 cap PO DAILY 06/08/23 12/24/24 History (120 mg-180 mg) capsule (Fish Oil) levothyroxine 112 mcg tablet 112 mcg PO DAILY #90 tabs 10/23/24 12/24/24 Rx Past Med/Surg History Problem List (Updated 12/24/24 @ 15:56 by April Pratt PA-C) Elevated troponin Eustachian tube disorder Abnormal mammogram of right breast Osteoporosis COVID-19 (Acute) Pneumonia (Acute) Weakness (Acute) Dehydration Generalized weakness Abnormal liver enzymes Poor appetite Vitamin B12 deficiency High vitamin D level Dry mouth Tinnitus Anxiety Insomnia Increased thirst Hx laparoscopic cholecystectomy (12/18/19) Laparoscopic cholecystectomy with lysis of adhesions. Dr. Mcpherson 12/18/2019 Elevated LFTs (Acute) Leukocytosis (Acute) Fatigue Hypothyroidism (Chronic) Peripheral neuropathy (Chronic) Seasonal allergies (Acute) Medical History Atrial tachycardia, paroxysmal Cerumen impaction Osteomyelitis of toe Right foot pain Pressure ulcer of right foot, stage 3 Right foot ulcer Status post placement of implantable loop recorder Lassitude Postural dizziness with near syncope Near syncope Left ear pain Sepsis Gallstone pancreatitis DVT prophylaxis Nausea & vomiting Syncope Cholelithiasis Abdominal discomfort Atypical chest pain (08/09/13) Breast cancer Acute pancreatitis Ascending cholangitis Acute cholecystitis H/O therapeutic radiation Acute coronary syndrome Surgical History H/O breast surgery Family History Mother Myocardial infarction Other No pertinent family history Denies family history of Ovarian cancer Prostate cancer Breast cancer Colorectal cancer Social History Smoking Status: Never smoker Second Hand Exposure: No; Do You Dip or Chew Tobacco: No; Hx Alcohol Use: No Hx Substance Use: No Preferred Language: Puerto Rican Communication Ability: Effective Visual Impairment: Limited Hearing Ability: Normal Engineering Specialist 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 marital status: Single Current Living Situation: Alone current occupational status: retired How many Children do You have: 0 Feels Safe at Home: Yes Safety Concerns: Feels Safe At This Time Childhood Exposure to Second-Hand Smoke: No Diet: regular caffeine: Yes during the past year weight has: remained stable Dental Care, Regularly: Yes Physical Activity Frequency: 3-4 Times per Week Seatbelt Use: always Sunscreen Use: Yes Do you think of yourself as: straight/heterosexual Sexual Activity: has been sexually active, but not for at least 12 months Gender Identity: Female Assistive Devices: Denture - Upper, Denture - Lower and Glasses Physical Exam Constitutional: WD/WN, vitals as above Respiratory: normal respiratory effort, lungs clear to auscultation Cardiovascular: RRR, no murmur, no edema Gastrointestinal (Abdomen): normal bowel sounds, soft, nontender, no hepatosplenomegaly Skin: no rashes, warm and dry Neurologic: PERRL, EOMI, accommodation nl, no face palsy, no dysarthria Psychiatric: A+Ox3, euthymic affect Results & Data Results & Data Vital Signs (Past 12 Hours) Vital Signs Temp Pulse Pulse Resp BP BP Pulse Ox 12/24/24 09:00 78 16 140/80 96 12/24/24 08:16 69 12/24/24 07:54 70 16 95 12/24/24 07:49 36.9 C 70 16 144/91 H 95 O2 Del Method 12/24/24 09:00 Room Air 12/24/24 08:16 12/24/24 07:54 Room Air 12/24/24 07:49 Room Air PG Care Time/CCT Total # of Minutes Spent Total Time Spent with Patient: Total time spent is greater than 50% in coordination of care (as documented) at patient's floor/unit and/or counseling patient: Coding Level of Care Code 56605 INT INP/OBS CARE 2/55MIN Diagnoses Nausea & vomiting R11.2 Elevated troponin R79.89 Weakness R53.1
[2024-12-24] MEDS: PANTOprazole 40 MG/10 ML SYR IV ONE (11:06)
[2024-12-24] MEDS: LACTATED RINGER'S 1,000 ML IV SCH (11:07)
[2024-12-24 11:57] LABS: Magnesium 2.1 mg/dl (1.7-2.4)
[2024-12-24 12:12] LABS: Thyroid Stimulating Hormone 1.533 uIu/ml (0.300-4.500)
[2024-12-24] MEDS: PANTOprazole 40 MG/10 ML SYR IV SCH (20:16)
--- NOTE | 2024-12-25 06:06 | Electrocardiogram Report ---
Test Reason : Blood Pressure : */* mmHG Vent. Rate : 68 BPM Atrial Rate : 68 BPM P-R Int : 202 ms QRS Dur : 88 ms QT Int : 472 ms P-R-T Axes : 57 -51 36 degrees QTcB Int : 501 ms Normal sinus rhythm Left anterior fascicular block Moderate voltage criteria for LVH, may be normal variant ( R in aVL , [place] product ) Poor R wave progression, consider anterior PR vs. lead placement vs. LVH Prolonged QT Abnormal ECG When compared with ECG of 08-Jun-2023 18:27, QT has lengthened Confirmed by Diego Cutler ([id number]) on 12/25/2024 6:05:34 AM Referred By: REFERRED SELF Confirmed By: Diego Cutler
[2024-12-25 08:23] VITALS: BP 151/73; PULSE 59; RESP 18; TEMP 97.9; O2SAT 96
[2024-12-25 09:08] LABS: Anion Gap 7.0 (3-11); Bilirubin,Total 1.2 mg/dl (0.2-1.0); Calcium 8.9 mg/dl (8.6-10.3); Carbon Dioxide 29.0 mmol/L (21-32); Chloride 102.0 mmol/L (98-107); Potassium 3.9 mmol/L (3.5-5.1); Sodium 138.0 mmol/L (136-145)
[2024-12-25 09:14] LABS: Alanine Aminotransferase 26.0 U/L (7-52); Albumin Globulin Ratio 1.5 (0.9-2); Alkaline Phosphatase 39.0 U/L (34-104); Blood Urea Nitrogen 12.0 mg/dl (6-23); Creatinine Clr Calc Pharmacy 56.9 ml/min; Globulin 2.8 gm/dl (2.5-4.0); Glucose 111.0 mg/dl (70-99(Fasting)); Total Protein 6.9 gm/dl (6.0-8.3)
[2024-12-25] MEDS: LEVOTHYROXINE SODIUM 112 MCG TABLET PO SCH (09:32)
--- NOTE | 2024-12-25 10:26 | Discharge Summary ---
"Discharge Summary Date of Service December 25, 2024 Principal Dx & Hospital Course #1 = Principal Diagnosis (1) Nausea & vomiting: (2) Elevated troponin: (3) Weakness: Plan #Nausea/vomiting This is an 84 year old female with past medical history of hypothyroidism who presented to the ED on 12/24/2024 with chief complaints of vomiting. While in the ED she was found to have mild leukocytosis of 13.52. Her CTAP was negative for any acute pathologies related to her symptoms. She was given IVF and IV Zofran with improvement of symptoms. No further vomiting since, tolerating solid food. Suspect elated to viral gastroenteritis or passed stone. #Elevated troponin | Demand ischemia without chest pain. EKG without ischemic changes. Troponin peaked at 43. likely demand secondary to viral illness. #Hypothyroidism TSH WNL, Continue Levothyroxine Dispo: discharge to home today Notes For Next Care Provider Medication Changes From Visit none Admission HPI Per Admitting Provider This is an 84 year old female with past medical history of hypothyroidism who presented to the ED on 12/24/2024 with chief complaints of vomiting. Olena was seen and examined this morning. She states that yesterday evening after eating dinner she started to throw up multiple times. She states that this caused her to become weak as well. She denies any hematemesis. Denies any indigestion type symptoms. States her last bowel movement was yesterday morning & she doesn't have any diarrhea. She denies fevers, chills, chest pain. Denies any abdominal pain. SHe states that the last time she did have N/V was in EMS on the way to the ER. While in the ED she was found to have mild leukocytosis of 13.52. Her CTAP was negative for any acute pathologies related to her symptoms. She was given IVF and IV Zofran with improvement of symptoms. Code discussion did take place and she is a DNR/DNI Discharge Exam General: NAD, VS as above Resp: normal respiratory effort, lungs clear to auscultation CV: RRR, no murmur, Abd: normal bowel sounds, non tender, no hepatosplenomegaly Extremities: Moves all extremities, no edema Neuro: A&O x3, Skin: intact, no lesions noted Discharge Plan Discharge Items Patient Disposition: Home - Self-Care Reason For Visit: NAUSEA AND VOMITING Discharge Diagnosis: Enteritis Activity: Resume your previous activity Weightbearing: Full weightbearing Non-emergency contact: Primary Care Provider Call non-emergency contact if: you have any medication questions, your symptoms worsen and your temperature is above 101 Follow-up/Referrals: Moses Haro, DO [Primary Care Provider] - (follow up within one week ) Diet: Heart Healthy Addtl Attending Provider Instructions: Ms. Sweeney You were hospitalized after having nausea and vomiting - we did no find an exact cause for this. It is possible that you had food posioning or a gallstone that has passed. Thankfully, your symptoms have resolved and you have tolerated regular/solid food. No changes to your home medications. Please follow up with your PCP within one week. CONTACT YOUR PRIMARY CARE PROVIDER if you experience any of the following: Shortness of breath or difficulty breathing Fevers or chills Feeling tired with normal activity or experiencing dizziness or fainting Difficulty following your treatment plan, or difficulty taking medications CALL 911 OR GO TO THE EMERGENCY DEPARTMENT if you experience any of the following: Severe abdominal pain or nausea/vomiting Severe chest pain, or chest pain that radiates (moves) to your jaw or arm Sudden, severe shortness of breath or difficulty breathing Thank you for allowing us to participate in your care. Pending Studies at Discharge: No Stand-Alone Forms: My [facility], Smoking Cessation Medications and DC Order Prescriptions: Continued levothyroxine 112 mcg tablet 112 mcg PO DAILY Qty: 90 3RF mecobalamin (vitamin B12) 1,000 mcg tablet,chewable 1,000 mcg PO DAILY Qty: 90 3RF omega 3-umo-rnp-fish oil [Fish Oil] 1,000 mg (120 mg-180 mg) Capsule 1 cap PO DAILY Discharge Orders: Discharge Order (Routine); Ordered 12/25/24 Ordered By: Sandee Alejandre Admission Data Admit Date/Time: 12/24/24 10:57 Attending Provider: Ingris Ventura Admit Provider: Andrew Carr Primary Care Provider: Moses Haro Other Providers: Andrew Carr Hospital Stay Data Consultations 12/24/24 11:36 ED Decision to Admit Stat Diagnostic Imagining Performed Abdomen/Pelvis CT 12/24/24 08:[address] WITH IV CONTRAST CT DOSE: 971.07 mGy.cm HISTORY: SBO, N/V, hx alexander TECHNIQUE: Multiaxial CT images of the abdomen and pelvis were performed following the IV administration of 90 cc of Optiray, A dose lowering technique was utilized adhering to the principles of ALARA. COMPARISON STUDY: 12/15/2019 FINDINGS: ABDOMEN: Stable mild fatty liver. Gallbladder is surgically absent. There is interval small amount of biliary gas consistent with interval papillotomy. The prior biliary dilatation has resolved. Spleen, pancreas, and adrenal glands are unremarkable. There are a few cysts at the kidneys, largest at the right lower kidney measures 4 cm. There is no hydronephrosis. There are scattered athe rosclerotic calcifications. No abdominal aortic aneurysm. Pelvis: Uterus and adnexa are grossly unremarkable. Urinary bladder is mildly distended, otherwise unremarkable. There is extensive sigmoid diverticulosis. No acute diverticulitis. Normal appendix. No bowel inflammation or obstruction. No free fluid, free air, or abscess. No enlarged adenopathy. Osseous structures: There is severe lower lumbar degenerative disc disease. There is grade 1 anterolisthesis of L3 on 4, L4 and 5, and L5 on S1, stable. There are mild degenerative changes at the hips. IMPRESSION: No acute findings. Otherwise as described. ACT 112: Negative or not required by law. The above report was generated using voice recognition software. It may contain grammatical, syntax or spelling errors. Electronically signed by: Chan Toscano M.D. 12/24/2024 9:39 AM Pending Results Patient Have Any Pending Studies at Discharge: No Discharge Instructions Given to Patient (Per Discharging Provider) Ms. Sweeney You were hospitalized after having nausea and vomiting - we did no find an exact cause for this. It is possible that you had food posioning or a gallstone that has passed. Thankfully, your symptoms have resolved and you have tolerated regular/solid food. No changes to your home medications. Please follow up with your PCP within one week. CONTACT YOUR PRIMARY CARE PROVIDER if you experience any of the following: Shortness of breath or difficulty breathing Fevers or chills Feeling tired with normal activity or experiencing dizziness or fainting Difficulty following your treatment plan, or difficulty taking medications CALL 911 OR GO TO THE EMERGENCY DEPARTMENT if you experience any of the following: Severe abdominal pain or nausea/vomiting Severe chest pain, or chest pain that radiates (moves) to your jaw or arm Sudden, severe shortness of breath or difficulty breathing Thank you for allowing us to participate in your care. Total Time Total Time Spent Total Time Spent (In Minutes): Time spent day of discharge 33 minutes including direct patient care, medication reconciliation, documentation, review of labs and images, and coordination of care. Coding Level of Care Code 05490 INP/OBS DISCH >30 MIN Diagnoses Nausea & vomiting R11.2 Elevated troponin R79.89 Weakness R53.1"
== END 2024-12-25 13:18 | disposition home or self-care (01) | DRG 392 ==
LOC: SUATTDRO → ED 07:43 → SUATTDRO 10:57 → EDINP 10:57 → 2N 14:32